=== PATIENT | female | born 1940 | race Caucasian/White ===

== ENCOUNTER 2016-09-04 19:20 | Emergency (ER) | payer MEDICARE, OTHER ==
[2016-09-04 19:54] VITALS: RESP 18
--- NOTE | 2016-09-04 21:55 | CT ---
EXAMINATION TYPE: CT facial bones wo con DATE OF EXAM: 09/04/2016 9:45 PM COMPARISON: NONE HISTORY: Fall today. Laceration and bruising to nasal area. CT DLP: 1767 mGycm Automated exposure control for dose reduction was used. TECHNIQUE: CT scan of the sinuses is performed without contrast, axial images are obtained, coronal r eformatted images are also reviewed. FINDINGS: The orbital margins are intact. There is no evidence of blowout fracture. There is normal a eration of the paranasal sinuses. There is bilateral patency of the ostiomeatal complex. There is waldemar e atrophy of the nasal turbinates. There is no evidence of orbital mass. The zygomatic arches appear normal. Maxilla is intact. Nasal bone appears intact. Visualized mandible appears intact. There is a small fluid level in the posterior sphenoid sinus. IMPRESSION: No fracture seen. Normal paranasal sinuses. There is a small fluid level in the posterior sphenoid sinus could relate to acute nasal injury.
--- NOTE | 2016-09-04 21:56 | CT ---
EXAMINATION TYPE: CT brain wo con DATE OF EXAM: 09/04/2016 9:42 PM COMPARISON: 04/28/2016 HISTORY: Fall today. Laceration and bruising to nasal area. CT DLP: 1767 mGycm Automated exposure control for dose reduction was used. FINDINGS: There is cerebral cortical atrophy. There is no mass effect nor midline shift. There is no sign of in tracranial hemorrhage. The calvarium is intact. IMPRESSION: Cerebral atrophy. No acute intracranial abnormality. No change.
--- NOTE | 2016-09-04 22:06 | ED ---
Fall HPI - General Chief Complaint: Fall Stated Complaint: Fall/ Face injury Time Seen by Provider: 09/04/16 20:50 Source: patient Mode of arrival: ambulatory - History of Present Illness Initial Comments: Patient is a 75-year-old female presenting to the with chief complaint of nasal pain after falling while trying to get to the bathroom. Patient reports that she fell and tripped and landed on her face. She denies any loss of consciousness. She is not on any blood thinners. Patient was sent here from urgent care for a CT of her facial bones. Patient denies pain with EOM's and denies headache, changes in vision, nausea, vomiting. - Related Data Home Medications Medication Instructions Recorded Confirmed traZODone HCL [Desyrel] 200 mg PO HS 07/20/14 09/04/16 FLUoxetine HCL [PROzac] 40 mg PO HS 12/14/14 09/04/16 Multivitamin/Iron/Folic Acid 1 tab PO DAILY 12/14/14 09/04/16 [Centrum Complete Multivit Tab] Cholecalciferol [Vitamin D3] 1,000 unit PO DAILY 12/23/14 09/04/16 Donepezil [Aricept] 10 mg PO HS 12/23/14 09/04/16 Esomeprazole Magnesium [NexIUM] 40 mg PO DAILY PRN 12/23/14 09/04/16 Memantine [Namenda] 5 mg PO DAILY 01/24/16 09/04/16 Primidone [Mysoline] 100 mg PO BID 01/24/16 09/04/16 Solifenacin Succinate [Vesicare] 10 mg PO DAILY 04/28/16 09/04/16 Acetaminophen-Codeine 300-30mg 2 tab PO Q6H PRN 09/04/16 09/04/16 [Tylenol #3] Alendronate Sodium [Fosamax] 70 mg PO WE 09/04/16 09/04/16 Calcium/Magnesium/Zinc/Vit D 1 tab PO DAILY 09/04/16 09/04/16 Docusate [Colace] 200 mg PO BID 09/04/16 09/04/16 Lactulose 10 gm PO BID PRN 09/04/16 09/04/16 Meloxicam [Mobic] 15 mg PO DAILY@1800 09/04/16 09/04/16 clonazePAM [KlonoPIN] 1 mg PO DAILY@0700,1500 09/04/16 09/04/16 clonazePAM [KlonoPIN] 3 mg PO HS@2300 09/04/16 09/04/16 Previous Rx's Medication Instructions Recorded Ibuprofen [Motrin] 600 mg PO Q6HR PRN #12 tab 09/04/16 Allergies Allergy/AdvReac Type Severity Reaction Status Date / Time lorazepam [From Ativan] Allergy Hallucinati Verified 09/04/16 21:04 ons pneumococcal vaccine Allergy Swelling Verified 09/04/16 21:04 Review of Systems ROS Statement: Those systems with pertinent positive or pertinent negative responses have been documented in the HPI. ROS Other: All systems not noted in ROS Statement are negative. Past Medical History Past Medical History: Cancer, GERD/Reflux, Hyperlipidemia, Memory Impairment, Osteoarthritis (OA), Skin Disorder Additional Past Medical History / Comment(s): Frequent falls, occasional palpatations, cervical ca with surgery, rosacea, benign tremors, bilateral cataracts, over active bladder, UTIs, hematuria, past R hip fx with surgery, past R wrist fx, recent pelvic fx, past back fx, back and hips and knees pain, DJD, varicosities. History of Any Multi-Drug Resistant Organisms: None Reported Past Surgical History: Adenoidectomy, Joint Replacement, Orthopedic Surgery, Tonsillectomy, Tubal Ligation Additional Past Surgical History / Comment(s): mateusz hip and right knee replacement , REVISION OF TOTAL LEFT HIP, R knee arthroscopy, part of cervix removed, EGD/colonoscopy. Past Anesthesia/Blood Transfusion Reactions: No Reported Reaction, Family History of Problems w/ Anesthesia Additional Past Anesthesia/Blood Transfusion Reaction / Comment(s): father had problem w/spinal & was paralyzed per pt. Past Psychological History: Anxiety, Bipolar, Depression Additional Psychological History / Comment(s): Pt states current medication regime for her mental health is working well. She lives alone in her home. She is a . She has a cane and walker for ambulation. She does not drive and finds it difficult to get to appts. She just established with [facility]. Smoking Status: Former smoker Past Alcohol Use History: Rare Additional Past Alcohol Use History / Comment(s): started smoking in her 50's only smoked x 1 month then quit, occ glass of wine at holidays or if someone visits Past Drug Use History: None Reported - Past Family History Father Family Medical History: Coronary Artery Disease (CAD), Myocardial Infarction ([place] ) Additional Family Medical History / Comment(s): cabg Mother Family Medical History: Dementia General Exam - General Exam Comments Initial Comments: is a pleasant 75-year-old female. Note acute distress. Limitations: no limitations General appearance: alert, in no apparent distress Head exam: Present: atraumatic, normocephalic, normal inspection Eye exam: Present: normal appearance, PERRL, EOMI. Absent: scleral icterus, conjunctival injection, periorbital swelling ENT exam: Present: normal exam, mucous membranes moist, other (nasal swelling. and bruising after fall. No evidence of septal hematoma. ) Neck exam: Present: normal inspection. Absent: tenderness, meningismus, lymphadenopathy Respiratory exam: Present: normal lung sounds bilaterally. Absent: respiratory distress, wheezes, rales, rhonchi, stridor Cardiovascular Exam: Present: regular rate, normal rhythm, normal heart sounds. Absent: systolic murmur, diastolic murmur, rubs, gallop, clicks GI/Abdominal exam: Present: soft, normal bowel sounds. Absent: distended, tenderness, guarding, rebound, rigid Extremities exam: Present: normal inspection, full ROM, normal capillary refill. Absent: tenderness, pedal edema, joint swelling, calf tenderness Back exam: Present: normal inspection Neurological exam: Present: alert, oriented X3, CN II-XII intact Psychiatric exam: Present: normal affect, normal mood Skin exam: Present: warm, dry, intact, normal color. Absent: rash Course Vital Signs 09/04/16 09/04/16 19:51 22:49 Temperature 97.6 F 97.5 F L Pulse Rate 70 57 L Respiratory 18 18 Rate Blood Pressure 120/72 170/66 O2 Sat by Pulse 98 98 Oximetry Medical Decision Making - Medical Decision Making Patient is a 75 year old female that fell when walking to the bathroom after she tripped. She reports she landed on her face. She is not on any blood thinners. CT brain and facial bones are negative for fracture. Patient will be given Rx for motrin and instructed to apply ice as much as possivle to nose. Patient nares are patent, and no signs of septal hematoma. Patient understands treatment plan and will comply. Patient does live in an assisted living home and will be monitored for the next 48 hours. Patient family understands treatment plan and penelope comply. Head injury instructions discussed. - Radiology Data Radiology results: report reviewed CT brain and facial bones are negative for any acute fracture, hematoma, or midline shift. Disposition Clinical Impression: Facial injury, Fall, Minor head injury without loss of consciousness Disposition: HOME SELF-CARE Condition: Fair Instructions: Fall Prevention for Older Adults (ED) Additional Instructions: Patient instructed to follow-up with primary care physician. Patient started apply ice and take anti-inflammatory medications as prescribed. Return to the [facility] if any alarming signs or symptoms occur. Prescriptions: Ibuprofen [Motrin] 600 mg PO Q6HR PRN #12 tab PRN Reason: Pain Referrals: Zane Burris DO [Primary Care Provider] - 1-2 days Time of Disposition: 22:12
[2016-09-04 22:51] VITALS: BP 170/66; PULSE 57; TEMP 97.5
== END 2016-09-04 22:51 | disposition home or self-care (01) ==
LOC: EC 19:20
DX: S09.90XA Unspecified injury of head, initial encounter (principal); S09.93XA Unspecified injury of face, initial encounter; W19.XXXA Unspecified fall, initial encounter; K21.9 Gastro-esophageal reflux disease without esophagitis; E78.5 Hyperlipidemia, unspecified; G25.2 Other specified forms of tremor; N32.81 Overactive bladder; Z87.891 Personal history of nicotine dependence; Z79.899 Other long term (current) drug therapy; Z85.41 Personal history of malignant neoplasm of cervix uteri; Z88.7 Allergy status to serum and vaccine; Z88.8 Allergy status to other drugs, medicaments and biological substances
CPT/HCPCS: 70450; 70486; 99283

== ENCOUNTER 2016-12-29 11:17 | Emergency (ER) | payer MEDICARE ==
[2016-12-29 11:29] VITALS: RESP 18
--- NOTE | 2016-12-29 11:39 | ED ---
Lower Extremity Injury HPI - General Stated Complaint: Foot Injury Time Seen by Provider: 12/29/16 11:20 Source: patient, RN notes reviewed Mode of arrival: ambulatory Limitations: no limitations - History of Present Illness Initial Comments: 76-year-old female presents emergency Department with chief complaint of right ankle injury. Patient states she caught her foot in between the closet door and wall. She states she twisted and states it swollen all. Patient states that she is able put some weight on it was states it hurts. Patient denies any previous fractures. Patient denies any foot pain or proximal lower leg pain. - Related Data Home Medications Medication Instructions Recorded Confirmed traZODone HCL [Desyrel] 200 mg PO HS 07/20/14 12/29/16 FLUoxetine HCL [PROzac] 40 mg PO HS 12/14/14 12/29/16 Multivitamin/Iron/Folic Acid 1 tab PO DAILY 12/14/14 12/29/16 [Centrum Complete Multivit Tab] Cholecalciferol [Vitamin D3] 1,000 unit PO DAILY 12/23/14 12/29/16 Donepezil [Aricept] 10 mg PO HS 12/23/14 12/29/16 Esomeprazole Magnesium [NexIUM] 40 mg PO DAILY PRN 12/23/14 12/29/16 Memantine [Namenda] 5 mg PO DAILY 01/24/16 12/29/16 Primidone [Mysoline] 100 mg PO BID 01/24/16 12/29/16 Solifenacin Succinate [Vesicare] 10 mg PO DAILY 04/28/16 12/29/16 Acetaminophen-Codeine 300-30mg 2 tab PO Q6H PRN 09/04/16 12/29/16 [Tylenol #3] Alendronate Sodium [Fosamax] 70 mg PO WE 09/04/16 12/29/16 Calcium/Magnesium/Zinc/Vit D 1 tab PO DAILY 09/04/16 12/29/16 Docusate [Colace] 200 mg PO BID 09/04/16 12/29/16 Lactulose 10 gm PO BID PRN 09/04/16 12/29/16 clonazePAM [KlonoPIN] 1 mg PO BID@0700,1500 09/04/16 12/29/16 clonazePAM [KlonoPIN] 3 mg PO HS@2300 09/04/16 12/29/16 Cyanocobalamin (Vitamin B-12) 1,000 mcg PO DAILY 12/29/16 12/29/16 [Vitamin B-12] Diclofenac Sodium Gel [Voltaren 4 gm TOPICAL QID 12/29/16 12/29/16 Gel] Previous Rx's Medication Instructions Recorded Ibuprofen [Motrin] 600 mg PO Q6HR PRN #12 tab 09/04/16 Allergies Allergy/AdvReac Type Severity Reaction Status Date / Time lorazepam [From Ativan] Allergy Hallucinati Verified 12/29/16 11:29 ons pneumococcal vaccine Allergy Swelling Verified 12/29/16 11:29 Review of Systems ROS Statement: Those systems with pertinent positive or pertinent negative responses have been documented in the HPI. ROS Other: All systems not noted in ROS Statement are negative. Past Medical History Past Medical History: Cancer, GERD/Reflux, Hyperlipidemia, Memory Impairment, Osteoarthritis (OA), Skin Disorder Additional Past Medical History / Comment(s): Frequent falls, occasional palpatations, cervical ca with surgery, rosacea, benign tremors, bilateral cataracts, over active bladder, UTIs, hematuria, past R hip fx with surgery, past R wrist fx, pelvic fx, past back fx, back and hips and knees pain, DJD, varicosities. History of Any Multi-Drug Resistant Organisms: None Reported Past Surgical History: Adenoidectomy, Joint Replacement, Orthopedic Surgery, Tonsillectomy, Tubal Ligation Additional Past Surgical History / Comment(s): mateusz hip and right knee replacement , REVISION OF TOTAL LEFT HIP, R knee arthroscopy, part of cervix removed, EGD/colonoscopy. Past Anesthesia/Blood Transfusion Reactions: No Reported Reaction, Family History of Problems w/ Anesthesia Additional Past Anesthesia/Blood Transfusion Reaction / Comment(s): father had problem w/spinal & was paralyzed per pt. Past Psychological History: Anxiety, Bipolar, Depression Additional Psychological History / Comment(s): Pt states current medication regime for her mental health is working well. She lives alone in her home. She is a . She has a cane and walker for ambulation. She does not drive and finds it difficult to get to appts. She just established with [facility]. Smoking Status: Former smoker Past Alcohol Use History: Rare Additional Past Alcohol Use History / Comment(s): started smoking in her 50's only smoked x 1 month then quit, occ glass of wine at holidays or if someone visits Past Drug Use History: None Reported - Past Family History Father Family Medical History: Coronary Artery Disease (CAD), Myocardial Infarction ([place] ) Additional Family Medical History / Comment(s): cabg Mother Family Medical History: Dementia General Exam Limitations: no limitations General appearance: alert, in no apparent distress Head exam: Present: atraumatic, normocephalic, normal inspection Respiratory exam: Present: normal lung sounds bilaterally. Absent: respiratory distress, wheezes, rales, rhonchi, stridor Cardiovascular Exam: Present: regular rate, normal rhythm, normal heart sounds. Absent: systolic murmur, diastolic murmur, rubs, gallop, clicks Extremities exam: Present: other (Right lower extremity there is some swelling noted over the malleolus medial and lateral there is tenderness of the lateral malleolus foot is neurovascular intact with equal pupils pulses Refill less than 2 seconds there is no foot tenderness there is no obvious deformity.) Skin exam: Present: warm, dry Course Vital Signs 12/29/16 12/29/16 11:23 11:33 Temperature 97.2 F L Pulse Rate 61 57 L Respiratory 18 18 Rate Blood Pressure 145/65 O2 Sat by Pulse 99 99 Oximetry Procedures - Orthopedic Splinting/Casting Injury #1 Side: right Lower Extremity Injury Location: ankle Lower Extremity Immobilizer: posterior splint (Short leg neurovascular intact before and after procedure) Medical Decision Making - Medical Decision Making 76-year-old female presented for right ankle pain. Patient has transverse fracture lateral malleolus. Patient was splinted and will follow-up with her orthopedic doctor Dr. De Leon. Return parameters were discussed. Disposition Clinical Impression: Closed right ankle fracture Disposition: HOME SELF-CARE Condition: Stable Instructions: Ankle Fracture (ED) Additional Instructions: Please return to the Emergency Department if symptoms worsen or any other concerns. Referrals: Zane Burris DO [Primary Care Provider] - 1-2 days Melchor Hayward MD [STAFF PHYSICIAN] - 1-2 days Time of Disposition: 12:07
--- NOTE | 2016-12-29 11:59 | XR ---
EXAMINATION TYPE: XR ankle complete RT DATE OF EXAM: 12/29/2016 11:35 AM COMPARISON: NONE HISTORY: 76-year-old female with pain after getting foot caught in closet TECHNIQUE: 3 views FINDINGS: There is a mildly displaced transverse fracture across the lateral malleolus at the level of the ankl e joint line. A 4 mm ossific density below the medial malleolus represents an age indeterminate avuls ion fracture. No fracture seen along the posterior malleolus. Subtalar joint is aligned. IMPRESSION: Mildly displaced transverse fracture of the lateral malleolus. A 4 mm bone fragment below the medial malleolus could represent an additional avulsion fracture mediated by the deltoid ligament. However, this is age indeterminate. Correlate for any focal pain here. Soft tissue swelling, especially latera lly.
[2016-12-29 13:15] VITALS: BP 130/82; PULSE 68; TEMP 97.4
== END 2016-12-29 13:15 | disposition home or self-care (01) ==
LOC: EC 11:17
DX: S82.61XA Displaced fracture of lateral malleolus of right fibula, initial encounter for closed fracture (principal); E78.5 Hyperlipidemia, unspecified; K21.9 Gastro-esophageal reflux disease without esophagitis; F41.9 Anxiety disorder, unspecified; F31.9 Bipolar disorder, unspecified; Z88.7 Allergy status to serum and vaccine; Z88.8 Allergy status to other drugs, medicaments and biological substances; Z79.899 Other long term (current) drug therapy; Z87.891 Personal history of nicotine dependence; X50.1XXA Overexertion from prolonged static or awkward postures, initial encounter
CPT/HCPCS: 29515; 99283

== ENCOUNTER → 2017-01-10 | Outpatient (CLI) | payer MEDICARE ==
[2017-01-10 14:01] LABS: Basophils % (A) 0 %; CH 32.8; CHCM 32.9; Eosinophils % (A) 1 %; HCT 40.4 % (34.0-46.0); HDW 2.34; Luc # (Auto) 0.11; Luc % (Auto) 2; Lymphocytes % (A) 21 %; MCH 32.1 pg (25.0-35.0); MCHC 32.1 g/dL (31.0-37.0); Mean Platelet Volume 7.2; Monocytes # (A) 0.2 k/uL (0-1.0); Monocytes % (A) 4 %; Neutrophils # (A) 3.5 k/uL (1.3-7.7); Neutrophils % (A) 72 %; RBC 4.04 m/uL (3.80-5.40); RDW 13.3 % (11.5-15.5); WBC 4.8 k/uL (3.8-10.6); WBC (Perox) 4.86
[2017-01-10 14:04] LABS: INR 1.1 (<1.1); Partial Thromboplastin Time 25.8 sec (22.0-30.0); Prothrombin Time 11.3 sec (9.0-12.0)
[2017-01-10 14:19] LABS: Potassium 4.2 mmol/L (3.5-5.1)
== END | disposition home or self-care (01) ==
LOC: LABPAT 12:58
PROVIDERS: ATTEND Orthopaedic Surgery
DX: Z01.812 Encounter for preprocedural laboratory examination (principal); Z79.01 Long term (current) use of anticoagulants
CPT/HCPCS: 36415; 80051; 85025; 85610; 85730

== ENCOUNTER 2017-01-11 11:33 | Day surgery (SDC) | payer MEDICARE, OTHER ==
[2017-01-09 16:01] VITALS: BMI 22.6
--- NOTE | 2017-01-10 08:24 | HP ---
DATE OF ADMISSION: CHIEF COMPLAINT: Right ankle pain. HISTORY OF PRESENT ILLNESS: The patient is a 76-year-old retired female who presents with right ankle pain after an injury on 12/29/2016. She was sitting on her closet floor when her foot got stuck in the door frame and she twisted her ankle. She has had pain and swelling since. She has been full weight-bearing. Initially, she was seen in the emergency and placed into a splint. She denies previous injury. PAST MEDICAL HISTORY: Significant for arthritis, hypothyroidism and dementia. PAST SURGICAL HISTORY: Significant for bilateral total knee arthroplasty, bilateral total hip arthroplasty. CURRENT MEDICATIONS: 1. Aricept. 2. Lipitor. 3. Nexium. 4. Prozac. 5. Klonopin. 6. Trazodone. She notes sensitivity to ATIVAN; however, no allen drug allergies. FAMILY HISTORY: Significant for heart disease. SOCIAL HISTORY: Significant for previous tobacco use; however, she quit in 2004. Sixteen-point review of systems otherwise reviewed and is noncontributory. On examination, the patient is approximately 5 feet 6 inches, 140 pounds of mesomorphic habitus. HEENT exam is nonfocal. Neck is supple. She is nontender about the cervical, thoracic, and lumbar spine. She has painless passive motion of the right hip. Straight leg raise is negative. She is nontender about the right knee and proximal fibula. On examination of the right ankle, she has moderate lateral swelling. Skin is intact. She is tender over the distal fibula. She is mildly tender about the deltoid. No mid or forefoot tenderness is noted. Her distal neurovascular exam appears to be intact in the right lower extremity. Three views of the right ankle obtained in the office show a lateral malleolar fracture with 3 to 4 mm lateral displacement. There appears to be a small medial malleolar avulsion fracture as well. IMPRESSION: 1. Right lateral malleolar ankle fracture. 2. Mild dementia. RECOMMENDATIONS: I talked to the patient and her family regarding her treatment options. At this point with the degree of displacement, I would recommend proceeding with surgery. We will plan to proceed with open reduction and internal fixation. We will likely perform that and keep the patient for a 23-hour hold postoperatively. Risks and benefits were discussed at length in layman's terms.
[~2017-01-11 11:33] MED LIST: DEXAMETHASONE SOD PHOSPHATE 10 MG/ML 1 ML VIAL IV ONE; HYDROmorphone 1 MG/ML 1 ML SYRINGE IVP PRN; LIDOCAINE 1% 20 ML VIAL (10MG/ML) FOR IV START INTRADERMA PRN; ONDANSETRON 4 MG/2 ML VIAL IVP ONE; ceFAZolin 1,000 MG in DEXTROSE/WATER 1 50ML.BAG IV ONE
[2017-01-11] MEDS: LACTATED RINGERS 1,000 ML IV SCH ×2 (12:57→19:18)
[2017-01-11] MEDS ORDERED: LIDOCAINE 1% 20 ML VIAL (10MG/ML) FOR IV START INTRADERMA ONE (12:57)
[2017-01-11] MEDS ORDERED: LIDOCAINE 1% INJ 10MG/ML (20 ML MDV) ONE (13:37)
[2017-01-11] MEDS ORDERED: PROPOFOL 10 MG/ML 20 ML VIAL IV ONE (13:37)
[2017-01-11] MEDS ORDERED: ceFAZolin 1,000 MG in SODIUM CHLORIDE 0.9% 1,000 ML IRRIGATION ONE (14:05)
[2017-01-11] MEDS ORDERED: ONDANSETRON 4 MG/2 ML VIAL IVP PRN (14:45)
[2017-01-11] MEDS ORDERED: HYDROmorphone 1 MG/ML 1 ML SYRINGE IVP PRN (14:45)
[2017-01-11] MEDS ORDERED: HYDROcodone/APAP 5-325MG 1 EACH TAB PO PRN (14:45)
--- NOTE | 2017-01-11 14:45 | P.OP ---
Date of Procedure: 01/11/17 Preoperative Diagnosis: Displaced right lateral malleolar ankle fracture Postoperative Diagnosis: Same Procedure(s) Performed: Open reduction and internal fixation right lateral malleolar ankle fracture Implants: Randy 6 hole one third tubular plate Anesthesia: spinal Surgeon: Melchor Hayward Psych Coordinator #1: Girish [place] Estimated Blood Loss (ml): 5 Pathology: none sent Condition: stable Disposition: PACU Indications for Procedure: The patient's a 76-year-old female presents after injuring her right ankle recently. She was noted to have a displaced lateral lateral fracture. A discussion of the risks and benefits of operative intervention versus conservative measures was made with patient and her family. With the degree of initial displacement, I recommended proceeding with open reduction and internal fixation. Specific risks of surgery to include infection, neurovascular injury , hardware failure, possible development of blood clots, possible need for subsequent procedures was discussed. Informed consent was obtained. Operative Findings: As below Description of Procedure: The patient was brought to the operating room, and after induction of spinal anesthesia the right lower extremity was prepped and draped in normal fashion. The tourniquet was inflated to 270 mmHg. A 7 cm incision was made along the distal subcutaneous border of the fibula. The skin was incised sharply. Subcutaneous tissues were divided bluntly. Electrocautery was used for hemostasis. The periosteum overlying the distal fibula was elevated to expose the fracture site. The fracture site was cleaned of clot and debris. It was then provisionally reduced with a reduction clamp. A 6-hole one third tubular plate was then fashioned to fit the lateral aspect of the distal fibula. This was attached proximally with 3.5 mm cortical screws the appropriate length and distally with 4.0 mm cancellus screws of the appropriate length. This was done with the aid of fluoroscopy. I was able to restore fibular length and the mortise. Final fluoroscopic views to include AP, mortise, and lateral views showed adequate reduction of fracture and the ankle mortise. The wound was irrigated with normal saline. The subcutaneous tissues were reapproximated interrupted 2-0 Vicryl sutures. The skin was reapproximated with 3-0 subcuticular strata fix suture. Steri-Strips were applied. A sterile dressing was applied in addition to a bulky splint. The tourniquet was deflated with less than 45 minutes total tourniquet time. The patient was awoken from sedation and transferred to recovery room in good condition. Blood loss was estimated 5 mL. No complications were incurred. Sponge and needle counts were correct in the case.
--- NOTE | 2017-01-11 14:51 | FL ---
FLUOROSCOPY 15 seconds of fluoroscopy time were utilized during internal fixation of the right ankle. 2 images do cument the procedure.
[2017-01-11] MEDS: ceFAZolin 2 GM in SODIUM CHLORIDE 0.9% 100 ML IVPB SCH ×2 (16:11→23:50)
[2017-01-11] MEDS ORDERED: DICLOFENAC SODIUM GEL 100 GM TUBE TOPICAL PRN (16:34)
[2017-01-11] MEDS: HYDROmorphone 1 MG/ML 1 ML SYRINGE IVP PRN ×2 (17:00→21:56)
[2017-01-11] MEDS: HYDROcodone/APAP 5-325MG 1 EACH TAB PO PRN (19:17)
[2017-01-11] MEDS ORDERED: FLUoxetine HCL 20 MG CAP PO SCH (21:00)
[2017-01-11] MEDS ORDERED: DONEPEZIL 10 MG TAB PO SCH (21:00)
[2017-01-11] MEDS: PRIMIDONE 50 MG TAB PO SCH ×2 (21:43→22:35)
[2017-01-11 22:00] VITALS: RESP 16
[2017-01-11] MEDS ORDERED: clonazePAM 1 MG TAB PO SCH (23:00)
[2017-01-12] MEDS: LACTATED RINGERS 1,000 ML IV SCH (02:12)
[2017-01-12] MEDS: HYDROcodone/APAP 5-325MG 1 EACH TAB PO PRN ×3 (03:44→15:39)
[2017-01-12] MEDS: clonazePAM 1 MG TAB PO SCH ×2 (07:23→15:09)
[2017-01-12] MEDS: PRIMIDONE 50 MG TAB PO SCH (08:29)
[2017-01-12] MEDS ORDERED: CHOLECALCIFEROL 1,000 UNIT TAB PO SCH (09:00)
[2017-01-12] MEDS ORDERED: LACTULOSE 20 GM/30 ML CUP PO SCH (09:00)
[2017-01-12] MEDS ORDERED: MEMANTINE 5 MG TAB PO SCH (09:00)
[2017-01-12] MEDS ORDERED: ASPIRIN 325 MG TAB PO SCH (09:00)
[2017-01-12] MEDS ORDERED: OXYBUTYNIN 10 MG TAB.ER.24 PO SCH (09:00)
--- NOTE | 2017-01-12 10:14 | P.PN ---
Subjective Principal diagnosis: Status post ORIF right lateral malleolus fracture Patient is seen today resting in her hospital chair, she appears comfortable. She did note some increasing pain to the night, this is well-controlled. She is remaining nonweightbearing. She denies any headaches, lightheadedness, chest pain, shortness of breath. Objective - Vital Signs Vital signs: Vital Signs Temp 98.7 F 01/12/17 07:00 Pulse 67 01/12/17 07:00 Resp 16 01/12/17 07:00 BP 124/84 01/12/17 07:00 Pulse Ox 100 01/12/17 07:00 Intake & Output 01/11/17 01/12/17 01/12/17 18:59 06:59 18:59 Intake Total 1950 360 Output Total 10 Balance 1940 360 Weight 63.503 kg Intake: IV 1950 Oral 360 Output: Estimated Blood Loss 10 Other: Voiding Method Bedside Commode Bedside Commode # Voids 1 - Exam Right lower extremity: Cast is in good position, it remains clean and intact. She is able to wiggle toes no difficulty. Her sensory exam both proximal and distal to the cast intact. Assessment and Plan Plan: Assessment: 1. Postop day #1 status post ORIF right lateral malleolus fracture Plan: 1. Pain control, continue supportive oral medication 2. Continue nonweightbearing status of right leg, utilize walker or crutches 3. GI and DVT prophylaxis, will utilize aspirin 320 mg daily after discharge 4. Medical recommendations 5. Discharge planning: Discussing with case management possibility for patient to be discharged back to her assisted care living facility versus a rehab facility Time with Patient: Less than 30
[2017-01-12 10:16] LABS: Basophils % (A) 0 %; CH 32.8; CHCM 32.9; Eosinophils # (A) 0.1 k/uL (0-0.7); Eosinophils % (A) 1 %; HCT 35.2 % (34.0-46.0); HDW 2.33; HGB 11.4 gm/dL (11.4-16.0); Luc # (Auto) 0.12; Luc % (Auto) 2; Lymphocytes # (A) 1.7 k/uL (1.0-4.8); Lymphocytes % (A) 30 %; MCH 32.5 pg (25.0-35.0); MCHC 32.5 g/dL (31.0-37.0); MCV 100.2 fL (80.0-100.0); Mean Platelet Volume 7.4; Monocytes # (A) 0.4 k/uL (0-1.0); Monocytes % (A) 6 %; Neutrophils # (A) 3.3 k/uL (1.3-7.7); Neutrophils % (A) 60 %; RBC 3.51 m/uL (3.80-5.40); RDW 13.2 % (11.5-15.5); WBC 5.5 k/uL (3.8-10.6)
--- NOTE | 2017-01-12 10:18 | P.DS ---
Providers Date of admission: 01/11/2017 Expected date of discharge: 01/12/17 Attending physician: Melchor Hayward Consults: 01/11/17 16:25 Consult Physician Stat Consulting Provider: Ezio Wynne Reason/Comments: medical management Do you want consulting provider notified?: Yes Primary care physician: Stated None Hospital Course: Date of admission: 01/11/2017 Date of discharge: 01/12/2017 Admission diagnosis: Status post ORIF right lateral malleolus fracture Discharge diagnosis: Same Attending physician: Dr. Hayward Surgical procedures: ORIF right lateral malleolus fracture Brief history: Patient is a 76-year-old female with a history of displaced right lateral malleolus fracture. Patient was seen in the outpatient setting by Dr. Hayward, it was determined surgical fixation would be needed for proper treatment. She was scheduled for an ORIF procedure of the right lateral malleolus fracture on 01/11/2017. Hospital course: Details of patient's surgery can be found in operative report. Patient tolerated the procedure well and was subsequently transported to orthopedic floor. Patient's orthopeidc and medical care was provided daily. Patient had daily physical therapy to include strengthening range of motion as well as education with walker ambulation. Patient was treated with aspirin for their postoperative DVT prophylaxis during their inpatient stay. Patient was noted to have a relatively uneventful postoperative course. Patient reported satisfactory pain control with oral pain medications by postoperative day 0. Patient showed satisfactory progress with physical therapy. Patient moved steadily through the program and had no difficulty meeting the goals by postoperative day 1. Given patient's otherwise satisfactory course and having met physical therapy goals, plan is to discharge patient assisted living home on postoperative day 1. Discharge condition/disposition: Patient will be discharged to the assisted living home in stable condition. Discharge medications: Instructions are given on resumption of patient's normal daily medications per primary care recommendation, in addition patient will be prescribed [place] 5mg/325mg, Aspirin 325mg. Discharge instructions: 1. Keep cast clean and dry, keep covered while showering 2. Nonweightbearing, utilize crutches or walker 3. Ice and elevate when necessary. Do not exceed 20 minutes per hour with ice pack. 4. Pain meds and anticoagulants per prescription. 5. Pain medication has potential to cause constipation. Increase oral fluid and fiber intake. Contact primary care provider if you have not had a bowel movement within 48 hours after discharge 6. Follow up in office at 2 weeks postop with Rich Colorado PA-C 7. Follow up with your primary care doctor 7-10 days after discharge. 8. Contact [facility] with any questions, . Procedures: Open reduction internal fixation right lateral malleolus fracture Patient Condition at Discharge: Good Plan - Discharge Summary New Discharge Prescriptions: New Aspirin 325 mg PO DAILY #30 tab Hydrocodone/Acetaminophen [[place] 5-325] 1 - 2 each PO Q6HR PRN #60 tab PRN Reason: Pain No Action FLUoxetine HCL [PROzac] 40 mg PO HS Multivitamin/Iron/Folic Acid [Centrum Complete Multivit Tab] 1 tab PO DAILY Cholecalciferol [Vitamin D3] 1,000 unit PO DAILY Donepezil [Aricept] 10 mg PO HS Primidone [Mysoline] 100 mg PO BID Memantine [Namenda] 5 mg PO DAILY Solifenacin Succinate [Vesicare] 10 mg PO DAILY Acetaminophen-Codeine 300-30mg [Tylenol #3] 1 tab PO Q6H PRN PRN Reason: Moderate To Severe Pain Alendronate Sodium [Fosamax] 70 mg PO WE clonazePAM [KlonoPIN] 3 mg PO HS@2300 clonazePAM [KlonoPIN] 1 mg PO BID@0700,1500 Lactulose 10 gm PO DAILY Ibuprofen [Motrin] 600 mg PO Q6HR PRN #12 tab PRN Reason: Pain Cyanocobalamin (Vitamin B-12) [Vitamin B-12] 1,000 mcg PO DAILY Diclofenac Sodium Gel [Voltaren Gel] 4 gm TOPICAL QID PRN PRN Reason: Pain Acetaminophen Tab [Tylenol Tab] 325 mg PO Q4H PRN PRN Reason: Pain Discharge Medication List FLUoxetine HCL [PROzac] 40 mg PO HS 12/14/14 [History] Multivitamin/Iron/Folic Acid [Centrum Complete Multivit Tab] 1 tab PO DAILY 11/25 [History] Cholecalciferol [Vitamin D3] 1,000 unit PO DAILY 12/23/14 [History] Donepezil [Aricept] 10 mg PO HS 12/23/14 [History] Memantine [Namenda] 5 mg PO DAILY 01/24/16 [History] Primidone [Mysoline] 100 mg PO BID 01/24/16 [History] Solifenacin Succinate [Vesicare] 10 mg PO DAILY 04/28/16 [History] Acetaminophen-Codeine 300-30mg [Tylenol #3] 1 tab PO Q6H PRN 09/04/16 [History] Alendronate Sodium [Fosamax] 70 mg PO WE 09/04/16 [History] Ibuprofen [Motrin] 600 mg PO Q6HR PRN #12 tab 09/04/16 [Rx] Lactulose 10 gm PO DAILY 09/04/16 [History] clonazePAM [KlonoPIN] 1 mg PO BID@0700,1500 09/04/16 [History] clonazePAM [KlonoPIN] 3 mg PO HS@2300 09/04/16 [History] Cyanocobalamin (Vitamin B-12) [Vitamin B-12] 1,000 mcg PO DAILY 12/29/16 [ History] Diclofenac Sodium Gel [Voltaren Gel] 4 gm TOPICAL QID PRN 12/29/16 [History] Acetaminophen Tab [Tylenol Tab] 325 mg PO Q4H PRN 01/11/17 [History] Aspirin 325 mg PO DAILY #30 tab 01/12/17 [Rx] Hydrocodone/Acetaminophen [[place] 5-325] 1 - 2 each PO Q6HR PRN #60 tab 01/12/17 [Rx] Follow up Appointment(s)/Referral(s): Girish Colorado PAC [PHYSICIAN SOUND TECHNICIAN SUPERVISOR] - 2 Weeks Activity/Diet/Wound Care/Special Instructions: Orthopedic discharge instructions: 1. Nonweightbearing right lower leg, utilize crutches or walker 2. Keep cast clean and dry, keep covered while showering 3. Ice and elevate the right leg often 4. Aspirin 325 mg once a day for DVT prophylaxis 5. Follow-up at [facility] in 2 weeks Discharge Disposition: TRANSFER TO SNF/ECF
[2017-01-12 10:37] LABS: Anion Gap 8 mmol/L; Blood Urea Nitrogen 23 mg/dL (7-17); Calcium 8.7 mg/dL (8.4-10.2); Carbon Dioxide 26 mmol/L (22-30); Chloride 106 mmol/L (98-107); Glucose 101 mg/dL (74-99); Non-African American GFR(MDRD) >60 (>60 ml/min/1.73 sqM); Potassium 3.6 mmol/L (3.5-5.1); Sodium 140 mmol/L (137-145)
[2017-01-12] MEDS ORDERED: MULTIVITAMINS, THERA 1 EACH TAB PO SCH (12:00)
[2017-01-12] MEDS ORDERED: CYANOCOBALAMIN 500 MCG TAB PO SCH (12:00)
--- NOTE | 2017-01-12 12:17 | CONS ---
DATE OF CONSULTATION: 01/12/2017 REASON FOR CONSULTATION: Medical management requested by Dr. Hayward. CONSULTATION: This is a pleasant 76-year-old patient who suffered a fracture to her right ankle. Patient underwent plating of the same. Some pain is present, but controlled. Right leg in a casting. Patient's chronic stable medical conditions include GERD, hyperlipidemia, urinary incontinence, psoriasis of the scalp, bipolar which is controlled. No chest pain, short of breath. Did tolerate some breakfast. REVIEW OF SYSTEMS: CONSTITUTIONAL: None. HEENT: None. RESPIRATORY: None. CARDIOVASCULAR: None. GASTROINTESTINAL: As above. GENITOURINARY: As above. MUSCULOSKELETAL: As above. DERMATOLOGICAL: As above. LYMPHATICS: None. PSYCHIATRY: None. NEUROLOGICAL: None. Past history of GERD, hyperlipidemia, urinary incontinence, psoriasis, bipolar. PAST SURGICAL HISTORY: Adenoidectomy, joint replacement, tonsillectomy, tubal ligation, bilateral hip and right knee replacement, revision of left total hip, right knee arthroscopy, ( ) cervix removed, EGD, colonoscopy. PAST PSYCH HISTORY: Bipolar. SOCIAL HISTORY: Patient lives by herself. Really does not drink or smoke. FAMILY HISTORY: Coronary artery disease and hypertension. HOME MEDICATIONS: 1. Fosamax 70 mg on Sunday. 2. Lactulose 10 grams p.o. daily. 3. VESIcare 10 mg p.o. daily. 4. Klonopin 3 mg in the evening 1 mg p.o. b.i.d. 5. Vitamin B12, 1000 mcg p.o. daily. 6. Vitamin D3, 1000 units p.o. daily. 7. Mysoline 100 mg b.i.d. 8. Multivitamin 1 tablet p.o. daily. 9. Namenda 5 mg p.o. daily. 10. Motrin 600 mg q.6 p.r.n. 11. Prozac 40 mg q.h.s. 12. Aricept 10 mg p.o. q.h.s. 13. Aspirin 325 p.o. daily. Allergies to ATIVAN and PNEUMOCOCCAL VACCINE. On examination, temperature 98/7, pulse 67, respiration 16, blood pressure 124/84, pulse ox 100% on room air. GENERAL APPEARANCE: Average built, sitting up in a chair, comfortable. EYES: Pupils equal. Conjunctivae normal. HEENT: External appearance of nose and ears normal. Oral cavity normal. NECK: JVD not raised. Mass not palpable. RESPIRATORY: Effort normal. Lungs are clear. CARDIOVASCULAR: First and second sounds normal. No edema. ABDOMEN: Soft, nontender. Liver and spleen not palpable. LYMPHATIC: No lymph node palpable in neck or axillae. PSYCHIATRY: Alert and oriented x3. Mood and affect normal. NEUROLOGICAL: Pupils equal. Cranial nerves grossly intact. Power and sensation grossly intact. EXTREMITIES: Right foot in a cast. INVESTIGATIONS: White count 5.5, hemoglobin 11.4. Potassium 3.6. ASSESSMENT: 1. Displaced right lateral malleolar ankle fracture followed by open reduction internal fixation of the same with plate placement. 2. Chronic gastroesophageal reflux disease. 3. Chronic hyperlipidemia. 4. Chronic urinary stress incontinence. 5. Psoriasis of the scalp. 6. Bipolar disorder in remission. PLAN: Home medications are reviewed. Pain control is in place. The patient actually will be getting discharged today. Patient should follow with the family doctor upon discharge. Care was discussed with the patient. Thank you, Dr. Hayward.
[2017-01-12 13:46] VITALS: BP 137/73; PULSE 62; TEMP 98
[2017-01-17] MEDS ORDERED: NON-FORMULARY DRUG (Alendronate Sodium [Fosamax] 70 MG) PO SCH (16:34)
== END 2017-01-12 16:14 ==
LOC: OR 11:33 → 3SUR 14:41 → OR 01-12 16:14
PROVIDERS: ATTEND Orthopaedic Surgery
DX: S82.61XA Displaced fracture of lateral malleolus of right fibula, initial encounter for closed fracture (principal); W23.0XXA Caught, crushed, jammed, or pinched between moving objects, initial encounter; Y92.008 Other place in unspecified non-institutional (private) residence as the place of occurrence of the external cause; F03.90 Unspecified dementia, unspecified severity, without behavioral disturbance, psychotic disturbance, mood disturbance, and anxiety; K21.9 Gastro-esophageal reflux disease without esophagitis; E78.5 Hyperlipidemia, unspecified; N39.3 Stress incontinence (female) (male); L40.9 Psoriasis, unspecified; F31.9 Bipolar disorder, unspecified; M19.90 Unspecified osteoarthritis, unspecified site; E03.9 Hypothyroidism, unspecified; F41.9 Anxiety disorder, unspecified; R25.1 Tremor, unspecified; Z96.653 Presence of artificial knee joint, bilateral; Z79.1 Long term (current) use of non-steroidal anti-inflammatories (NSAID); Z79.82 Long term (current) use of aspirin; Z79.891 Long term (current) use of opiate analgesic; Z79.899 Other long term (current) drug therapy; Z88.7 Allergy status to serum and vaccine; Z87.891 Personal history of nicotine dependence
CPT/HCPCS: 97530; 97161; 80048; 85025; 73600; 27792; C1713; J1100; J0690 ×3; J2405; J2001; J1170; J2704

== ENCOUNTER → 2018-02-01 | Outpatient (CLI) | payer MEDICARE ==
--- NOTE | 2018-02-01 15:53 | XR ---
EXAMINATION TYPE: XR wrist complete RT DATE OF EXAM: 02/01/2018 CLINICAL HISTORY: Pain from fall injury. History of fracture. TECHNIQUE: Frontal, lateral , scaphoid, and oblique images of the right wrist are obtained. COMPARISON: Prior right wrist x-ray February 21, 2015 FINDINGS: Osseous structures remain demineralized which is noted to lower radiographic sensitivity. There is no acute fracture/dislocation evident in the right wrist. Radiocarpal joint space loss is re demonstrated. There is prominent joint space loss at base of first metacarpal with marginal osteophyt es redemonstrated. The overlying soft tissue appears unremarkable. IMPRESSION: There is no acute fracture or dislocation in the right wrist.
== END | disposition home or self-care (01) ==
LOC: RADXRMAIN 15:21
PROVIDERS: ATTEND Family Medicine
DX: M25.531 Pain in right wrist (principal)

== ENCOUNTER → 2019-01-31 | Outpatient (CLI) | payer MEDICARE ==
--- NOTE | 2019-01-31 14:01 | NM ---
EXAMINATION TYPE: NM bone 3 phase DATE OF EXAM: 01/31/2019 COMPARISON: NONE HISTORY: Right knee pain Triple phase bone scintigraphy was performed following the injection of 24 mCi Tc 99m MDP. Immediate images and 4.5 hours post injection images acquired. FINDINGS: There is increased pharmaceutical uptake noted along the proximal tibia on the right at the level of the patient's tibial component of the right knee arthroplasty. Photopenic region is identified. This correlates with the patient's knee arthroplasty. Some mild uptake also noted along the femoral compon ent of the right knee arthroplasty. Uptake along the patella is bilaterally is relatively symmetric. No increased blood flow is noted. Blood pool activity is mild about the femoral component of the alie ent's right knee arthroplasty. Mild uptake in the wrists, hands, shoulders, sternoclavicular joints, feet is likely degenerative. Uptake in the spine be due to degenerative changes or possibly prior com pression fractures, uptake in the greater trochanter on the left is indeterminate but may be related to prior surgery or bursitis at the trochanter. Photopenic defects noted in the bilateral hips consis tent with hip arthroplasties. Soft tissue uptake is normal. Uptake in the calvarium likely benign, po ssibly due to hyperostosis frontalis interna. IMPRESSION: Difficult to exclude anesthetic loosening. No increased blood flow activity to suggest infection. Add itional findings above.
== END | disposition home or self-care (01) ==
LOC: RADNMMAIN 07:24
PROVIDERS: ATTEND Orthopaedic Surgery
DX: T84.84XD Pain due to internal orthopedic prosthetic devices, implants and grafts, subsequent encounter (principal); Z96.651 Presence of right artificial knee joint; Z88.8 Allergy status to other drugs, medicaments and biological substances
CPT/HCPCS: 78315; A9503

== ENCOUNTER 2019-03-02 07:54 | Inpatient (IN) | payer MEDICARE ==
[2019-03-02] MEDS ORDERED: MORPHINE SULFATE 4 MG/ML SYRINGE IM STA (09:09)
--- NOTE | 2019-03-02 09:57 | ED ---
General Adult HPI - General Chief complaint: Fall Stated complaint: KNEE PAIN Time Seen by Provider: 03/02/19 08:14 Source: patient, RN notes reviewed, old records reviewed Mode of arrival: ambulatory Limitations: no limitations - History of Present Illness Initial comments: 78-year-old female patient with pertinent medical history of total hip replacement 3 times total presents to ED after a fall. Patient was that she was walking in her hallway, loss of balance falling onto her right hip. Patient had this hip replaced approximately [address] De Leon. Patient reports she has pain in her right hip and her right femur area. Pt denies loss o f bowel or bladder control, saddle anesthesia, paresthesias, back pain. Patient denies any other complaints at this time. Patient denies any trauma to head or neck. Denies any other complaints. Systemic: Pt denies fatigue, fever/chills, rash. Pt denies weakness, night sweats, weight loss. Neuro: Pt denies headache, visual disturbances, syncope or pre-syncope. HEENT: Pt denies ocular discharge or irritation, otalgia, rhinorrhea, pharyngitis or notable lymphadenopathy. Cardiopulmonary: Pt denies chest pain, SOB, heart palpitations, dyspnea on exertion. Abdominal/GI: Pt denies abdominal pain, n/v/d. : Pt denies dysuria, burning w/ urination, frequency/urgency. Denies new onset urinary or bowel incontinence. MSK: Pt denies loss of strength or function in extremities. Neuro: Pt denies new onset weakness, paresthesias. - Related Data Home Medications Medication Instructions Recorded Confirmed FLUoxetine HCL [PROzac] 40 mg PO HS 12/14/14 01/09/17 Multivitamin/Iron/Folic Acid 1 tab PO DAILY 12/14/14 01/09/17 [Centrum Complete Multivit Tab] Cholecalciferol [Vitamin D3 (25 1,000 unit PO DAILY 12/23/14 01/09/17 Mcg = 1000 Iu)] Donepezil [Aricept] 10 mg PO HS 12/23/14 01/09/17 Memantine [Namenda] 5 mg PO DAILY 01/24/16 01/09/17 Primidone [Mysoline] 100 mg PO BID 01/24/16 01/09/17 Solifenacin Succinate [Vesicare] 10 mg PO DAILY 04/28/16 01/11/17 Alendronate Sodium [Fosamax] 70 mg PO WE 09/04/16 01/11/17 Lactulose 10 gm PO DAILY 09/04/16 01/11/17 clonazePAM [KlonoPIN] 1 mg PO BID@0700,1500 09/04/16 01/11/17 clonazePAM [KlonoPIN] 3 mg PO HS@2300 09/04/16 01/11/17 Cyanocobalamin (Vitamin B-12) 1,000 mcg PO DAILY 12/29/16 01/09/17 [Vitamin B-12] Diclofenac Sodium Gel [Voltaren 4 gm TOPICAL QID PRN 12/29/16 01/11/17 Gel] Acetaminophen Tab [Tylenol] 325 mg PO Q4H PRN 01/11/17 01/11/17 Previous Rx's Medication Instructions Recorded Aspirin 325 mg PO DAILY #30 tab 01/12/17 Hydrocodone/Acetaminophen [Brush 1 - 2 each PO Q6HR PRN #60 tab 01/12/17 5-325] Cephalexin [Keflex] 500 mg PO Q12HR 10 Days cap 03/02/19 Allergies Allergy/AdvReac Type Severity Reaction Status Date / Time lorazepam [From Ativan] Allergy Hallucinati Verified 03/02/19 07:59 ons pneumococcal vaccine Allergy Swelling Verified 03/02/19 07:59 Review of Systems ROS Statement: Those systems with pertinent positive or pertinent negative responses have been documented in the HPI. ROS Other: All systems not noted in ROS Statement are negative. Past Medical History Past Medical History: Cancer, GERD/Reflux, Hyperlipidemia, Memory Impairment, Osteoarthritis (OA), Skin Disorder Additional Past Medical History / Comment(s): cervical ca, INCONTINENCE, FRACTURE OF RIGHT ANKLE, psoriasis History of Any Multi-Drug Resistant Organisms: None Reported Past Surgical History: Adenoidectomy, Joint Replacement, Orthopedic Surgery, Tonsillectomy, Tubal Ligation Additional Past Surgical History / Comment(s): mateusz hip and right knee replacement , REVISION OF TOTAL LEFT HIP, R knee arthroscopy, part of cervix removed, EGD/colonoscopy. Past Anesthesia/Blood Transfusion Reactions: No Reported Reaction, Family History of Problems w/ Anesthesia Additional Past Anesthesia/Blood Transfusion Reaction / Comment(s): "father had problem w/spinal & was paralyzed per pt." Past Psychological History: Anxiety, Bipolar, Depression Smoking Status: Never smoker Past Alcohol Use History: Rare Past Drug Use History: None Reported - Past Family History Father Family Medical History: Hypertension Additional Family Medical History / Comment(s): open heart surgery, paralyzed by spinal Mother Family Medical History: Dementia General Exam - General Exam Comments Initial Comments: Constitutional: NAD, AOX3, Pt has pleasant affect. HEENT: NC/AT, trachea midline, neck supple, no lymphadenopathy. Posterior pharynx non erythematous, without exudates. External ears appear normal, without discharge. Mucous membranes moist. Eyes PERRLA, EOM intact. There is no scleral icterus. No pallor noted. Cardiopulmonary: RRR, no murmurs, rubs or gallops, no JVD noted. Lungs CTAB in anterior and posterior thompson. No peripheral edema. Abdominal exam: Abdomen soft and non-distended. Abdomen non-tender to palpation in all 4 quadrants. Bowel sounds active in LLQ. No hepatosplenomegaly. No ecchymosis Neuro: CN II-XII grossly intact. No nuchal rigidity. No raccon eyes, no toscano sign, no hemotympanum. No cervical spinal tenderness. MSK: Mild amount of tenderness to palpation and lateral mid shaft femur. No ecchymoses. Sensation intact. Limbs are equal length. Passive range of motion of right lower extremity intact. Active range of motion limited secondary to pain. No posterior calf tenderness bilaterally, homans sign negative bilaterally. Posterior tibialis and radial pulse +2 bilaterally. Sensation intact in upper and lower extremities. Full active ROM in upper and lower extremities, 5/5 stregnth. Limitations: no limitations Course Vital Signs 03/02/19 03/02/19 03/02/19 07:59 14:18 15:10 Temperature 98 F Pulse Rate 62 60 68 Respiratory 18 16 16 Rate Blood Pressure 115/56 139/98 107/86 O2 Sat by Pulse 99 100 98 Oximetry 03/02/19 15:17 Temperature 98 F Pulse Rate 65 Respiratory 16 Rate Blood Pressure 158/90 O2 Sat by Pulse 98 Oximetry Medical Decision Making - Medical Decision Making 78-year-old female patient with pertinent medical history of total hip replacement 3 times total presents to ED after a fall. Patient was that she was walking in her hallway, loss of balance falling onto her right hip. Patient had this hip replaced approximately [address] De Leon. Patient reports she has pain in her right hip and her right femur area. Patient denies any other complaints at this time. Patient denies any trauma to head or neck. Denies any other complaints. Patient vital signs stable, afebrile. Mild amount of tenderness to palpation and lateral mid shaft femur. No ecchymoses. Sensation intact. Limbs are equal length. Passive range of motion of right lower extremity intact. Active range of motion limited secondary to pain. Plain film of the pelvis, fever, chest did not display acute process. Laboratory investigations revealed mild cytosis of 11.0. CMP non-impressive. UA displayed mild urinary tract infection. Patient is unable to ambulate second jules to pain in right femur region. Patient will be admitted into observation for intractable pain and urinary tract infection. Case discussed with Dr. Cali. - Lab Data Result diagrams: 03/02/19 11:43 03/02/19 11:43 Lab Results 03/02/19 03/02/19 03/02/19 Range/Units 11:43 11:43 11:55 WBC 11.0 H (3.8-10.6) k/uL RBC 3.81 (3.80-5.40) m/uL Hgb 12.4 (11.4-16.0) gm/dL Hct 37.1 (34.0-46.0) % MCV 97.3 (80.0-100.0) fL MCH 32.5 (25.0-35.0) pg MCHC 33.4 (31.0-37.0) g/dL RDW 13.3 (11.5-15.5) % Plt Count 174 (150-450) k/uL Neutrophils % 87 % Lymphocytes % 7 % Monocytes % 4 % Eosinophils % 1 % Basophils % 0 % Neutrophils # 9.6 H (1.3-7.7) k/uL Lymphocytes # 0.8 L (1.0-4.8) k/uL Monocytes # 0.5 (0-1.0) k/uL Eosinophils # 0.1 (0-0.7) k/uL Basophils # 0.0 (0-0.2) k/uL Sodium 140 (137-145) mmol/L Potassium 4.2 (3.5-5.1) mmol/L Chloride 106 (98-107) mmol/L Carbon Dioxide 28 (22-30) mmol/L Anion Gap 6 mmol/L BUN 17 (7-17) mg/dL Creatinine 0.67 (0.52-1.04) mg/dL Est GFR (CKD-EPI)AfAm >90 (>60 ml/min/1.73 sqM) Est GFR (CKD-EPI)NonAf 86 (>60 ml/min/1.73 sqM) Glucose 101 H (74-99) mg/dL Calcium 9.1 (8.4-10.2) mg/dL Total Bilirubin 0.4 (0.2-1.3) mg/dL AST 18 (14-36) U/L ALT 23 (9-52) U/L Alkaline Phosphatase 58 (38-126) U/L Total Protein 6.4 (6.3-8.2) g/dL Albumin 3.8 (3.5-5.0) g/dL Urine Color Yellow Urine Appearance Cloudy H (Clear) Urine pH 5.5 (5.0-8.0) Ur Specific Hamilton 1.017 (1.001-1.035) Urine Protein Negative (Negative) Urine Glucose (UA) Negative (Negative) Urine Ketones 1+ H (Negative) Urine Blood Negative (Negative) Urine Nitrite Negative (Negative) Urine Bilirubin Negative (Negative) Urine Urobilinogen <2.0 (<2.0) mg/dL Ur Leukocyte Esterase Large H (Negative) Urine RBC 3 (0-5) /hpf Urine WBC 61 H (0-5) /hpf Ur Squamous Epith Cells 1 (0-4) /hpf Urine Bacteria Many H (None) /hpf Urine Mucus Occasional H (None) /hpf Disposition Clinical Impression: Fall, UTI (urinary tract infection) Disposition: ADMITTED IP TO THIS HOSP Condition: Stable Prescriptions: Cephalexin [Keflex] 500 mg PO Q12HR 10 Days cap Is patient prescribed a controlled substance at d/c from ED?: No Referrals: Zane Burris DO [Primary Care Provider] - 1-2 days Melchor Hayward MD [STAFF PHYSICIAN] - 1-2 days
--- NOTE | 2019-03-02 11:33 | XR ---
EXAMINATION TYPE: XR Hip RT and AP Pelvis , 3 VIEWS DATE OF EXAM ORDERED: 03/02/2019 HISTORY: Pain. COMPARISON: None. FINDINGS: Bilateral hip prostheses are in place. The right prosthesis is unremarkable. The left is i ncompletely visualized. No acute fracture or dislocation is seen. Degenerative changes noted in the l ower lumbar spine. IMPRESSION: 1. STATUS POST BILATERAL ARTHROPLASTIES. 2 DEGENERATIVE CHANGE. 3. NO ACUTE OSSEOUS LESION.
--- NOTE | 2019-03-02 11:34 | XR ---
EXAMINATION TYPE: XR femur RT , 5 VIEWS DATE OF EXAM ORDERED: 03/02/2019 HISTORY: Pain. COMPARISON: None. FINDINGS: A right hip hemiarthroplasties in place. Prosthetic elements are in good position. There i s a right total knee prosthesis in place. Prosthetic elements appear in good position. No acute fract ure or dislocation is seen. IMPRESSION: 1. NO ACUTE OSSEOUS LESION. 2. STATUS POST RIGHT HIP AND KNEE ARTHROPLASTIES.
--- NOTE | 2019-03-02 11:35 | XR ---
EXAMINATION TYPE: XR chest 2V DATE OF EXAM: 03/02/2019 HISTORY: Pain. REFERENCE: Previous study dated 04/28/2016. FINDINGS: The lungs appear clear. Pleural space are clear. The heart is not enlarged. IMPRESSION: NO ACTIVE INTRATHORACIC DISEASE.
[2019-03-02 11:51] LABS: Basophils % (A) 0 %; Eosinophils # (A) 0.1 k/uL (0-0.7); Eosinophils % (A) 1 %; HCT 37.1 % (34.0-46.0); HGB 12.4 gm/dL (11.4-16.0); Lymphocytes # (A) 0.8 k/uL (1.0-4.8); Lymphocytes % (A) 7 %; MCH 32.5 pg (25.0-35.0); MCHC 33.4 g/dL (31.0-37.0); MCV 97.3 fL (80.0-100.0); Mean Platelet Volume 7.9; Monocytes # (A) 0.5 k/uL (0-1.0); Monocytes % (A) 4 %; Neutrophils # (A) 9.6 k/uL (1.3-7.7); Neutrophils % (A) 87 %; Platelet Count 174 k/uL (150-450); RBC 3.81 m/uL (3.80-5.40); RDW 13.3 % (11.5-15.5)
[2019-03-02 12:12] LABS: ALT 23 U/L (9-52); AST 18 U/L (14-36); African American GFR (CKD) >90 (>60 ml/min/1.73 sqM); Albumin 3.8 g/dL (3.5-5.0); Alkaline Phosphatase 58 U/L (38-126); Anion Gap 6 mmol/L; Blood Urea Nitrogen 17 mg/dL (7-17); Calcium 9.1 mg/dL (8.4-10.2); Carbon Dioxide 28 mmol/L (22-30); Chloride 106 mmol/L (98-107); Glucose 101 mg/dL (74-99); Potassium 4.2 mmol/L (3.5-5.1); Sodium 140 mmol/L (137-145); Total Bilirubin 0.4 mg/dL (0.2-1.3); Total Protein 6.4 g/dL (6.3-8.2)
[2019-03-02 12:43] LABS: Appearance,Urine Cloudy (Clear); Bacteria,Urine Many /hpf; Bilirubin,Urine Negative (Negative); Blood,Urine Negative (Negative); Color,Urine Yellow; Glucose,Urine (UA) Negative (Negative); Ketones,Urine 1+ (Negative); Leukocyte Esterase,Urine Large (Negative); Mucus,Urine Occasional /hpf; Nitrite,Urine Negative (Negative); PH, Urine 5.5 (5.0-8.0); Protein,Urine Negative (Negative); RBC,Urine 3 /hpf (0-5); Specific Gravity,Urine 1.017 (1.001-1.035); Squamous Epithelial Cell,Urine 1 /hpf (0-4); Urobilinogen,Urine <2.0 mg/dL (<2.0); WBC,Urine 61 /hpf (0-5)
[2019-03-02] MEDS ORDERED: CEPHALEXIN 500 MG CAP PO STA (12:53)
[2019-03-02] MEDS ORDERED: CEPHALEXIN 500MG STARTER PACK 4 CAP BTL PO STA (12:53)
[2019-03-02] MEDS ORDERED: HYDROcodone/APAP 7.5-325MG 1 EACH TAB PO ONE (13:03)
[2019-03-02] MEDS ORDERED: ACET/COD 300 MG/30 MG STARTER PACK 6 TAB BTL PO STA (13:17)
[2019-03-02] MEDS ORDERED: NALOXONE 0.4 MG/ML 1 ML VIAL IV PRN (15:27)
[2019-03-02] MEDS ORDERED: MORPHINE SULFATE 4 MG/ML SYRINGE IV PRN (15:27)
[2019-03-02] MEDS ORDERED: ACETAMINOPHEN TAB 325 MG TAB PO PRN (15:30)
--- NOTE | 2019-03-02 15:34 | ED ---
Medical Decision Making - Lab Data Result diagrams: 03/02/19 11:43 03/02/19 11:43 <Melchor Naylor - Last Filed: 03/02/19 15:33> - Lab Data Result diagrams: 03/02/19 11:43 03/02/19 11:43 <Kole Cali - Last Filed: 03/02/19 15:41> - Medical Decision Making Constitutional: NAD, AOX3, Pt has pleasant affect. HEENT: NC/AT, trachea midline, neck supple, no lymphadenopathy. Posterior pharynx non erythematous, without exudates. External ears appear normal, without discharge. Mucous membranes moist. Eyes PERRLA, EOM intact. There is no scleral icterus. No pallor noted. Cardiopulmonary: RRR, no murmurs, rubs or gallops, no JVD noted. Lungs CTAB in anterior and posterior thompson. No peripheral edema. Abdominal exam: Abdomen soft and non-distended. Abdomen non-tender to palpation in all 4 quadrants. Bowel sounds active in LLQ. No hepatosplenomegaly. No ecchymosis Neuro: CN II-XII intact. No nuchal rigidity. No raccon eyes, no toscano sign, no hemotympanum. No cervical spinal tenderness. MSK: Mild amount of tenderness to palpation and lateral mid shaft femur. No ecchymoses. Sensation intact. Limbs are equal length. Passive range of motion of right lower extremity intact. Active range of motion limited secondary to pain. No posterior calf tenderness bilaterally, homans sign negative bilaterally. Posterior tibialis and radial pulse +2 bilaterally. Sensation intact in upper and lower extremities. Full active ROM in upper extremities, 5/5 stregnth. No tenderness to cervical, thoracic, lumbar spine. (Melchor Naylor) Case was discussed with practitioner milton. Chart reviewed. Results reviewed. Case was discussed with Dr. mendez, covering for Dr. Wynne, who admits for Dr. Burris, who will admit. (Kole Cali) - Lab Data Lab Results 03/02/19 03/02/19 03/02/19 Range/Units 11:43 11:43 11:55 WBC 11.0 H (3.8-10.6) k/uL RBC 3.81 (3.80-5.40) m/uL Hgb 12.4 (11.4-16.0) gm/dL Hct 37.1 (34.0-46.0) % MCV 97.3 (80.0-100.0) fL MCH 32.5 (25.0-35.0) pg MCHC 33.4 (31.0-37.0) g/dL RDW 13.3 (11.5-15.5) % Plt Count 174 (150-450) k/uL Neutrophils % 87 % Lymphocytes % 7 % Monocytes % 4 % Eosinophils % 1 % Basophils % 0 % Neutrophils # 9.6 H (1.3-7.7) k/uL Lymphocytes # 0.8 L (1.0-4.8) k/uL Monocytes # 0.5 (0-1.0) k/uL Eosinophils # 0.1 (0-0.7) k/uL Basophils # 0.0 (0-0.2) k/uL Sodium 140 (137-145) mmol/L Potassium 4.2 (3.5-5.1) mmol/L Chloride 106 (98-107) mmol/L Carbon Dioxide 28 (22-30) mmol/L Anion Gap 6 mmol/L BUN 17 (7-17) mg/dL Creatinine 0.67 (0.52-1.04) mg/dL Est GFR (CKD-EPI)AfAm >90 (>60 ml/min/1.73 sqM) Est GFR (CKD-EPI)NonAf 86 (>60 ml/min/1.73 sqM) Glucose 101 H (74-99) mg/dL Calcium 9.1 (8.4-10.2) mg/dL Total Bilirubin 0.4 (0.2-1.3) mg/dL AST 18 (14-36) U/L ALT 23 (9-52) U/L Alkaline Phosphatase 58 (38-126) U/L Total Protein 6.4 (6.3-8.2) g/dL Albumin 3.8 (3.5-5.0) g/dL Urine Color Yellow Urine Appearance Cloudy H (Clear) Urine pH 5.5 (5.0-8.0) Ur Specific [place] 1.017 (1.001-1.035) Urine Protein Negative (Negative) Urine Glucose (UA) Negative (Negative) Urine Ketones 1+ H (Negative) Urine Blood Negative (Negative) Urine Nitrite Negative (Negative) Urine Bilirubin Negative (Negative) Urine Urobilinogen <2.0 (<2.0) mg/dL Ur Leukocyte Esterase Large H (Negative) Urine RBC 3 (0-5) /hpf Urine WBC 61 H (0-5) /hpf Ur Squamous Epith Cells 1 (0-4) /hpf Urine Bacteria Many H (None) /hpf Urine Mucus Occasional H (None) /hpf Disposition Is patient prescribed a controlled substance at d/c from ED?: No <Melchor Naylor - Last Filed: 03/02/19 15:33> <Kole Cali - Last Filed: 03/02/19 15:41> Clinical Impression: Fall, UTI (urinary tract infection) Disposition: ADMITTED IP TO THIS HOSP Condition: Stable Prescriptions: Cephalexin [Keflex] 500 mg PO Q12HR 10 Days cap Referrals: Zane Burris DO [Primary Care Provider] - 1-2 days Melchor Hayward MD [STAFF PHYSICIAN] - 1-2 days
[2019-03-02] MEDS: SODIUM CHLORIDE 0.9% 1,000 ML IV SCH (16:25)
[2019-03-02 18:38] VITALS: BMI 26.2
[2019-03-02] MEDS: HYDROmorphone 0.5 MG/0.5 ML SYRINGE IVP PRN (23:34)
[2019-03-02] MEDS: PRIMIDONE 50 MG TAB PO SCH (23:34)
[2019-03-03] MEDS: HYDROmorphone 0.5 MG/0.5 ML SYRINGE IVP PRN ×5 (04:22→21:56)
[2019-03-03] MEDS: SODIUM CHLORIDE 0.9% 1,000 ML IV SCH ×3 (04:22→22:05)
--- NOTE | 2019-03-03 06:52 | HP ---
HISTORY AND PHYSICAL DATE OF SERVICE: 03/03/2019. CHIEF COMPLAINTS: Fall and as well as UTI. HISTORY OF PRESENT ILLNESS: This 78-year-old woman with a past medical history of multiple medical problems including GERD, hyperlipidemia, memory impairment, DJD, history of cervical cancer, incontinence being followed by Dr. Burris in the outpatient setting is apparently a resident of [facility]. The patient apparently had no electricity today and the patient apparently went to the bathroom and fell on the left hip and the patient complaining of severe pain, inability to walk and move the leg and patient came to [facility] and was admitted for further evaluation and treatment. Femur x- rays and pelvic x-rays read by Radiology did not show any fractures and the patient admitted for further evaluation and treatment. The patient complaining of severe pain. There is no history of fever, rigors, chills at this time. The patient has seen Dr. Hayward previously for the surgery. The patient has shaking chills at the time of admission. PAST MEDICAL HISTORY: History of GERD, hyperlipidemia, history of memory impairment, history of cervical cancer, adenoidectomy, anxiety, bipolar depression. MEDICATIONS: Home medications are: 1. Mysoline 100 mg p.o. b.i.d. 2. Multivitamins one p.o. daily. 3. Prozac 40 mg q.h.s. 4. Aricept 10 mg q.h.s. 5. Aspirin 325 mg p.o. daily. 6. Klonopin 1 mg p.o. b.i.d. and 3 mg p.o. q.h.s. 7. VESIcare 10 mg p.o. daily. 8. Namenda 5 mg p.o. daily. 9. Lactulose 10 p.o. daily. 10.[place] 5 mg 1 tab q.6 p.r.n. 11.Voltaren gel 4 grams topically q.i.d. p.r.n. 12.Vitamin B12, 1000 mcg p.o. daily. 13.Vitamin D3, 1000 daily. 14.Fosamax 70 mg p.o. Sunday. 15.Tylenol 325 mg p.o. q.4 p.r.n. 16.Keflex 500 mg p.o. b.i.d. ALLERGIES: ATIVAN and PNEUMOCOCCAL VACCINE. FAMILY HISTORY: History of hypertension, open heart surgery. SOCIAL HISTORY: No history of smoking. Occasional alcohol intake. REVIEW OF SYSTEMS: ENT: Diminished hearing and diminished vision. CARDIOVASCULAR SYSTEM: No angina. RESPIRATORY SYSTEM: As mentioned earlier. GI: No nausea. : No dysuria. NERVOUS SYSTEM: As mentioned earlier. ALLERGY/IMMUNOLOGY: No asthma or hayfever. MUSCULOSKELETAL: As mentioned earlier. HEMATOLOGY/ONCOLOGY: No history of anemia. ENDOCRINE: No history of diabetes or hypothyroidism. CONSTITUTIONAL: As mentioned earlier. DERMATOLOGY: Negative. RHEUMATOLOGY negative. PSYCHIATRY: As mentioned earlier. PHYSICAL EXAMINATION: The patient is alert and oriented x3_. Pulse 61, blood pressure 133/73, respiration 18, temperature 98 degrees, pulse ox 99% on room air. HEENT: Conjunctivae normal. Oral mucosa moist. NECK: No jugular venous distention. CARDIOVASCULAR: S1, S2 muffled. No S3, no S4. S2 normal. RESPIRATORY: Breath sounds diminished at the bases. No rhonchi, no crackles. ABDOMEN: Soft, nontender. No mass palpable. LEGS: Movement of the right leg is significantly painful, limited and no swelling noted. NERVOUS SYSTEM: Higher function as mentioned. Moves all 4 limbs. No focal motor deficits. Gait cannot be tested. LYMPHATICS: No lymphadenopathy of the neck, axillae or groin. SKIN: No ulcer, rash or bleeding. JOINTS: As mentioned earlier. Right hip joint is severely painful. LAB INVESTIGATIONS: At this time, x-rays are noted otherwise WBC 11, hemoglobin 12.4. UA noted UTI. ASSESSMENT: 1. Acute urinary tract infection present on admission, with possible sepsis. 2. Fall and significant right hip pain, possibly contusion. 3. Increased WBC. 4. Gastroesophageal reflux disease. 5. Hyperlipidemia. 6. History of memory impairment. 7. History of cervical cancer. 8. History of psoriasis. 9. History of degenerative joint disease. 10.History of anxiety, bipolar depression. 11.FULL CODE. RECOMMENDATIONS AND DISCUSSION: This 78-year-old woman who presented with multiple complex medical issues, at this time I recommend to continue current medications, continue symptomatic treatment. The patient had features of sepsis. At this time, the patient has shaking chills. I would recommend to continue the IV antibiotics. Otherwise follow the cultures. Infectious Disease evaluation. I would also recommend orthopedic evaluation for this severe pain. Symptomatic treatment of pain will be provided along with DVT prophylaxis, PT,OT evaluation and guarded prognosis because of multiple complex medical issues. Further recommendations to follow. MMODL / IJN: [id number] / MTDMary Anne
[2019-03-03] MEDS: PRIMIDONE 50 MG TAB PO SCH ×2 (07:18→21:59)
[2019-03-03] MEDS: PANTOPRAZOLE 40 MG TABLET PO SCH (07:18)
[2019-03-03] MEDS: HEPARIN SODIUM,PORCINE 5,000 UNIT/ML 1 ML VIAL SQ SCH ×2 (07:19→21:58)
[2019-03-03] MEDS: MULTIVITAMINS, THERA 1 EACH TAB PO SCH (07:19)
[2019-03-03] MEDS ORDERED: ASPIRIN 325 MG TAB PO SCH (09:00)
[2019-03-03 09:07] LABS: Basophils % (A) 0 %; Eosinophils # (A) 0.1 k/uL (0-0.7); Eosinophils % (A) 2 %; HCT 34.9 % (34.0-46.0); HGB 11.4 gm/dL (11.4-16.0); Lymphocytes # (A) 0.7 k/uL (1.0-4.8); Lymphocytes % (A) 15 %; MCH 32.5 pg (25.0-35.0); MCHC 32.6 g/dL (31.0-37.0); MCV 99.9 fL (80.0-100.0); Mean Platelet Volume 7.3; Monocytes # (A) 0.3 k/uL (0-1.0); Monocytes % (A) 6 %; Neutrophils # (A) 3.6 k/uL (1.3-7.7); Neutrophils % (A) 75 %; Platelet Count 135 k/uL (150-450); RDW 12.6 % (11.5-15.5); WBC 4.8 k/uL (3.8-10.6)
[2019-03-03 09:18] LABS: African American GFR (CKD) >90 (>60 ml/min/1.73 sqM); Anion Gap 7 mmol/L; Blood Urea Nitrogen 12 mg/dL (7-17); Calcium 8.5 mg/dL (8.4-10.2); Carbon Dioxide 26 mmol/L (22-30); Chloride 107 mmol/L (98-107); Glucose 165 mg/dL (74-99); Sodium 140 mmol/L (137-145)
[2019-03-03] MEDS: HYDROcodone/APAP 5-325MG 1 EACH TAB PO PRN ×2 (09:40→22:46)
--- NOTE | 2019-03-03 14:25 | P.CNOR ---
History of Present Illness - [facility] Consult date: 03/03/19 Consult reason: fracture History of present illness: Patient is 78-year-old female who presented to [facility] yesterday morning after sustaining a fall. Patient was walking to her bathroom in her apartment when she fell onto the right side. Patient was unable to weight-bear and had excruciating pain of the right leg. Upon arrival to the hospital, imaging and lab tests were done of the right lower extremity. No fractures were noted on x-ray reports, she was admitted under internal medicine for significant pain with inability to ambulate, along with possible UTI. Orthopedic team was then consult with regards to the right lower extremity pain. She has a history of a previous right hemiarthroplasty that was done by Dr. Hayward. She's been considering having her right knee is advised also by Dr. Hayward and being followed in the outpatient setting for this. Patient was examined at bedside today, she is resting comfortably. She notes most pain in the right upper thigh, mainly tries to move it. She denies any new onset right knee pain. She denies any left lower extremity pain. She denies any new onset cervical and thoracic pain. Patient states that she utilizes a cane for ambulation. She is a resident at the [facility] home, she's been up for about 4 years. I was able to review the x-rays of the right lower extremity, images did demonstrate a unicortical fracture involving the proximal right femur. Prosthesis of the right hip appears stable at this time. Review of Systems Constitutional: Reports as per [facility] Past Medical History Past Medical History: Cancer, GERD/Reflux, Hyperlipidemia, Memory Impairment, Osteoarthritis (OA), Skin Disorder Additional Past Medical History / Comment(s): cervical ca, INCONTINENCE, FRACTURE OF RIGHT ANKLE, psoriasis History of Any Multi-Drug Resistant Organisms: None Reported Past Surgical History: Adenoidectomy, Joint Replacement, Orthopedic Surgery, Tonsillectomy, Tubal Ligation Additional Past Surgical History / Comment(s): mateusz hip and right knee replac ement , REVISION OF TOTAL LEFT HIP, R knee arthroscopy, part of cervix removed, EGD/colonoscopy. Past Anesthesia/Blood Transfusion Reactions: No Reported Reaction, Family Hist ory of Problems w/ Anesthesia Additional Past Anesthesia/Blood Transfusion Reaction / Comm: "father had problem w/spinal & was paralyzed per pt." Past Psychological History: Anxiety, Bipolar, Depression Additional Psychological History / Comment(s): lives at [facility] Smoking Status: Never smoker Past Alcohol Use History: Rare Additional Past Alcohol Use History / Comment(s): started smoking in her 50's only smoked x 1 month then quit, occ glass of wine at holidays or if someone visits Past Drug Use History: None Reported - Past Family History Father Family Medical History: Hypertension Additional Family Medical History / Comment(s): open heart surgery, paralyzed by spinal Mother Family Medical History: Dementia Medications and Allergies Home Medications Medication Instructions Recorded Confirmed Type FLUoxetine HCL [PROzac] 40 mg PO HS 12/14/14 03/03/19 History Multivitamin/Iron/Folic Acid 1 tab PO DAILY 12/14/14 03/03/19 History [Centrum Complete Multivit Tab] Cholecalciferol [Vitamin D3 (25 1,000 unit PO DAILY 12/23/14 03/03/19 History Mcg = 1000 Iu)] Donepezil [Aricept] 10 mg PO HS 12/23/14 03/03/19 History Memantine [Namenda] 5 mg PO DAILY 01/24/16 03/03/19 History Primidone [Mysoline] 50 mg PO QID 01/24/16 03/03/19 History Alendronate Sodium [Fosamax] 70 mg PO WE 09/04/16 03/03/19 History clonazePAM [KlonoPIN] 1 mg PO BID@0700,1500 09/04/16 03/03/19 History clonazePAM [KlonoPIN] 2 mg PO HS@2300 09/04/16 03/03/19 History Cyanocobalamin (Vitamin B-12) 1,000 mcg PO DAILY 12/29/16 03/03/19 History [Vitamin B-12] Cephalexin [Keflex] 500 mg PO Q12HR 10 Days cap 03/02/19 Rx Aspirin EC [Ecotrin Low Dose] 81 mg PO DAILY 03/03/19 03/03/19 History Calcium/Magnesium/Zinc 1 tab PO DAILY 03/03/19 03/03/19 History [Itjlfte-Afmdskvff-Brjm Tablet] Chlorhexidine Gluconate [Periogard] 15 ml MUCOUS MEM BID 03/03/19 03/03/19 History Lubiprostone [Amitiza] 24 mcg PO BID 03/03/19 03/03/19 History Meloxicam [Mobic] 7.5 mg PO BID 03/03/19 03/03/19 History Mirabegron [Myrbetriq] 50 mg PO DAILY 03/03/19 03/03/19 History traZODone HCL 200 mg PO HS 03/03/19 03/03/19 History Allergies Allergy/AdvReac Type Severity Reaction Status Date / Time lorazepam [From Ativan] Allergy Hallucinati Verified 03/03/19 08:10 ons pneumococcal vaccine Allergy Swelling Verified 03/03/19 08:10 Physical Examination Right lower extremity: No obvious open lesions or sores present throughout the extremity, no significant areas of erythema or soft tissue swelling Previous scars noted on the lateral aspect of the right hip along with anterior knee No effusion appreciated around the knee, no significant tenderness with palpation Tenderness with palpation noted at the proximal thigh Patient is unable to straight leg raise, logroll maneuver the hip reproduces significant pain Attempted hip flexion along with knee flexion does reproduce pain in the right upper thigh Plantar flexion, dorsiflexion, EHL, FHL are intact. Sensory exam to light touch throughout the extremities intact Results - Labs Labs: Abnormal Lab Results - Last 24 Hours (Table) 03/03/19 03/03/19 Range/Units 08:45 08:45 RBC 3.50 L (3.80-5.40) m/uL Plt Count 135 L (150-450) k/uL Lymphocytes # 0.7 L (1.0-4.8) k/uL Creatinine 0.49 L (0.52-1.04) mg/dL Glucose 165 H (74-99) mg/dL Microbiology - Last 24 Hours (Table) 03/02/19 11:55 Urine Culture - Preliminary Urine,Voided H & H 03/02/19 03/03/19 Range/Units 11:43 08:45 Hgb 12.4 11.4 (11.4-16.0) gm/dL Hct 37.1 34.9 (34.0-46.0) % Result Diagrams: 03/03/19 08:45 03/03/19 08:45 - Diagnostic results Hip x-ray: report reviewed, image reviewed Knee x-ray: report reviewed, image reviewed Assessment and Plan Plan: Imaging: Multiple x-rays were reviewed of the right lower extremity. Images of the right hip do demonstrate a stable appearing hemiarthroplasty component. There is evidence of a unicortical proximal femur fracture. Images of the knee demonstrate no acute fractures or dislocations. Assessment: Right unicortical proximal periprosthetic femur fracture Stable right hip hemiarthroplasty Stable right knee arthroplasty Recent fall from standing Other medical comorbidities Plan: I was able to discuss the case, including the physical exam findings and imaging studies with my attending Dr. Falcon. Components appear stable at this time, no orthopedic surgical intervention. Patient will remain nonweightbearing on the right lower extremity, toe-touch with transfers, utilize walker. Recommend physical therapy evaluation for education on transferring Pain control via primary medical service GI and DVT prophylaxis via primary medical service Patient will likely need placement for subacute rehab We'll be available for any further questions regarding this patient Time with Patient: Less than 30
[2019-03-03] MEDS: clonazePAM 1 MG TAB PO SCH ×2 (14:43→21:58)
--- NOTE | 2019-03-03 16:45 | P.PN ---
Subjective Progress Note Date: 03/03/19 Principal diagnosis: This is a 78-year-old female with a past medical history of multiple medical problems who had a recent fall and is being admitted for right-sided hip and leg pain. Patient was staying at [facility] home. Awaiting orthopedic consult at this time. Patient denies any nausea, vomiting, or diarrhea at this time. Patient denies any chest pain, palpitations, or shortness of breath at this time. Patient does have severe right leg and hip pain. Objective - Vital Signs Vital signs: Vital Signs Temp 96.9 F L 03/03/19 13:24 Pulse 59 L 03/03/19 13:24 Resp 16 03/03/19 13:24 BP 138/65 03/03/19 13:24 Pulse Ox 98 03/03/19 13:24 Intake & Output 03/02/19 03/03/19 03/03/19 18:59 06:59 18:59 Intake Total 650 480 Balance 650 480 Weight 71.577 kg Intake: Oral 650 480 Other: Voiding Method Bedpan Bedpan # Voids 8 8 # Bowel Movements 0 - Exam Gen: This is a 78-year-old female lying in bed appears in no acute distress unless you touch the right leg or hip. HEENT: Head is atraumatic, normocephalic. Pupils equal, round. Sclerae is anicteric. NECK: Supple. No JVD. No lymphadenopathy. No thyromegaly. LUNGS: Clear to auscultation. No wheezes or rhonchi. No intercostal re tractions. HEART: Regular rate and rhythm. No murmur. ABDOMEN: Soft. Bowel sounds are present. No masses. No tenderness. EXTREMITIES: No pedal edema. No calf tenderness. Right leg and hip tenderness and unable to lift the leg off the bed NEUROLOGICAL: Patient is awake, alert and oriented x3. Cranial nerves 2 through 12 are grossly intact. - Labs CBC & Chem 7: 03/03/19 08:45 03/03/19 08:45 Labs: Abnormal Lab Results - Last 24 Hours (Table) 03/03/19 03/03/19 Range/Units 08:45 08:45 RBC 3.50 L (3.80-5.40) m/uL Plt Count 135 L (150-450) k/uL Lymphocytes # 0.7 L (1.0-4.8) k/uL Creatinine 0.49 L (0.52-1.04) mg/dL Glucose 165 H (74-99) mg/dL Microbiology - Last 24 Hours (Table) 03/02/19 11:55 Urine Culture - Preliminary Urine,Voided Assessment and Plan Assessment: Acute urinary tract infection present on admission, with possible sepsis. Currently on IV antibiotics. Will await urine cultures Recent fall and significant right hip pain, possibly contusion. Awaiting ortho consult. X-rays were negative for any fractures. Increased WBC. Resolved. Current WBC is 4.8 Gastroesophageal reflux disease Hyperlipidemia History of memory impairment History of cervical cancer History of psoriasis History of degenerative joint disease History of anxiety, bipolar depression Full code Patient's and discussion: Recommend continue current medications and continue symptomatic treatment. Continue IV antibiotics and will await cultures for urine. Continue with the rest of medications and pain management. Closely monitor. Prognosis is guarded. Further recommendations to follow. Awaiting orthopedic consult.
[2019-03-03] MEDS: CHLORHEXIDINE GLUCONATE 15 ML CUP MUCOUS MEM SCH (21:58)
[2019-03-03] MEDS: traZODone HCL 100 MG TAB PO SCH (21:58)
[2019-03-03] MEDS: MELOXICAM 7.5 MG TAB PO SCH (21:59)
[2019-03-03] MEDS: DONEPEZIL 10 MG TAB PO SCH (21:59)
[2019-03-03] MEDS: FLUoxetine HCL 20 MG CAP PO SCH (21:59)
[2019-03-03] MEDS: NON-FORMULARY DRUG (Lubiprostone [Amitiza] 24 MCG) PO SCH (22:01)
--- NOTE | 2019-03-03 23:50 | P.CONS ---
History of Present Illness - Reason for Consult Consult date: 03/03/19 Sepsis Requesting physician: Donald Pang - Chief Complaint Fall with the right hip pain x 1 day - History of Present Illness Patient is a 78-year-old female presenting to the ER after pending the patient did have a fall while she was walking the hallway holding on the right side of her body was subsequent pain to the right hip and right ankle area in describing to be dull aching 4-5/10 and no radiation with no associated swelling or redness or any laceration or wound, the patient denies having any loss of consciousness no fever no chills no nausea no vomiting no, pain or any diarrhea with these symptoms the patient has been evaluated by the ER physician patient on presentation to hospital was afebrile she did have mildly elevated white count of 11,000 the patient had did have x-rays of the hip those were negative for any bony abnormality the patient did have a positive UA with concern for urinary tract infection she did receive doses of Keflex in the ER subsequently was started on Rocephin and admitted to the hospital infection disease was consu lted for further recommendation regarding antibiotic therapy patient isn't a very good historian as for his urinary symptoms of concern at times she says she has some burning but no suprapubic or flank pain no nausea no vomiting, Review of Systems Positive points has been mentioned in HPI rest of the systems are negative Past Medical History Past Medical History: Cancer, GERD/Reflux, Hyperlipidemia, Memory Impairment, Osteoarthritis (OA), Skin Disorder Additional Past Medical History / Comment(s): cervical ca, INCONTINENCE, FRACTURE OF RIGHT ANKLE, psoriasis History of Any Multi-Drug Resistant Organisms: None Reported Past Surgical History: Adenoidectomy, Joint Replacement, Orthopedic Surgery, Tonsillectomy, Tubal Ligation Additional Past Surgical History / Comment(s): mateusz hip and right knee replacement , REVISION OF TOTAL LEFT HIP, R knee arthroscopy, part of cervix removed, EGD/colonoscopy. Past Anesthesia/Blood Transfusion Reactions: No Reported Reaction, Family History of Problems w/ Anesthesia Additional Past Anesthesia/Blood Transfusion Reaction / Comm: "father had problem w/spinal & was paralyzed per pt." Past Psychological History: Anxiety, Bipolar, Depression Additional Psychological History / Comment(s): lives at [facility] Smoking Status: Never smoker Past Alcohol Use History: Rare Additional Past Alcohol Use History / Comment(s): started smoking in her 50's only smoked x 1 month then quit, occ glass of wine at holidays or if someone visits Past Drug Use History: None Reported - Past Family History Father Family Medical History: Hypertension Additional Family Medical History / Comment(s): open heart surgery, paralyzed by spinal Mother Family Medical History: Dementia Medications and Allergies Home Medications Medication Instructions Recorded Confirmed Type FLUoxetine HCL [PROzac] 40 mg PO HS 12/14/14 03/03/19 History Multivitamin/Iron/Folic Acid 1 tab PO DAILY 12/14/14 03/03/19 History [Centrum Complete Multivit Tab] Cholecalciferol [Vitamin D3 (25 1,000 unit PO DAILY 12/23/14 03/03/19 History Mcg = 1000 Iu)] Donepezil [Aricept] 10 mg PO HS 12/23/14 03/03/19 History Memantine [Namenda] 5 mg PO DAILY 01/24/16 03/03/19 History Primidone [Mysoline] 50 mg PO QID 01/24/16 03/03/19 History Alendronate Sodium [Fosamax] 70 mg PO WE 09/04/16 03/03/19 History clonazePAM [KlonoPIN] 1 mg PO BID@0700,1500 09/04/16 03/03/19 History clonazePAM [KlonoPIN] 2 mg PO HS@2300 09/04/16 03/03/19 History Cyanocobalamin (Vitamin B-12) 1,000 mcg PO DAILY 12/29/16 03/03/19 History [Vitamin B-12] Cephalexin [Keflex] 500 mg PO Q12HR 10 Days cap 03/02/19 Rx Aspirin EC [Ecotrin Low Dose] 81 mg PO DAILY 03/03/19 03/03/19 History Calcium/Magnesium/Zinc 1 tab PO DAILY 03/03/19 03/03/19 History [Dvqdzjc-Sdrkcrsoo-Ytyb Tablet] Chlorhexidine Gluconate [Periogard] 15 ml MUCOUS MEM BID 03/03/19 03/03/19 History Lubiprostone [Amitiza] 24 mcg PO BID 03/03/19 03/03/19 History Meloxicam [Mobic] 7.5 mg PO BID 03/03/19 03/03/19 History Mirabegron [Myrbetriq] 50 mg PO DAILY 03/03/19 03/03/19 History traZODone HCL 200 mg PO HS 03/03/19 03/03/19 History Allergies Allergy/AdvReac Type Severity Reaction Status Date / Time lorazepam [From Ativan] Allergy Hallucinati Verified 03/03/19 08:10 ons pneumococcal vaccine Allergy Swelling Verified 03/03/19 08:10 Physical Exam Vitals: Vital Signs Temp Pulse Pulse Resp BP BP Pulse Ox 03/03/19 05:00 98.3 F 72 18 148/69 100 03/02/19 21:00 98.0 F 61 18 133/73 99 03/02/19 18:38 99.4 F 65 16 114/89 100 03/02/19 18:15 98.1 F 62 16 130/60 100 03/02/19 17:15 98.6 F 56 L 18 120/58 98 03/02/19 15:17 98 F 65 16 158/90 98 03/02/19 15:10 68 16 107/86 98 03/02/19 14:18 60 16 139/98 100 Intake and Output 03/02/19 03/03/19 03/03/19 22:59 06:59 14:59 Intake Total 400 250 240 Balance 400 250 240 Intake: Oral 400 250 240 Other: Voiding Method Bedpan Bedpan Bedpan # Voids 2 8 3 # Bowel Movements 0 GENERAL DESCRIPTION: Elderly female lying in bed, no distress. No tachypnea or accessory muscle of respiration use. HEENT: Shows Pallor , no scleral icterus. Oral mucous membrane is dry. No pharyngeal erythema or thrush NECK: Trachea central, no thyromegaly. LUNGS: Unlabored breathing. Clear to auscultation anteriorly. No wheeze or crackle. HEART: S1, S2, regular rate and rhythm. No loud murmur ABDOMEN: Soft, no tenderness , guarding or rigidity, no organomegaly EXTREMITIES: No edema of feet. SKIN: No rash, no masses palpable. NEUROLOGICAL: The patient is awake, alert, oriented x3, mood and affect normal. Results CBC & Chem 7: 03/03/19 08:45 03/03/19 08:45 Labs: Abnormal Lab Results - Last 24 Hours (Table) 03/03/19 03/03/19 Range/Units 08:45 08:45 RBC 3.50 L (3.80-5.40) m/uL Plt Count 135 L (150-450) k/uL Lymphocytes # 0.7 L (1.0-4.8) k/uL Creatinine 0.49 L (0.52-1.04) mg/dL Glucose 165 H (74-99) mg/dL Microbiology - Last 24 Hours (Table) 03/02/19 11:55 Urine Culture - Preliminary Urine,Voided Assessment and Plan Assessment: 1-patient being admitted hospital with a fall in this patient with no loss of consciousness no fever patient did have mildly elevated white count and a positive UA with minimal urinary symptoms underlying urinary tract infection from enteric gram-negative pathogen not entirely excluded Plan: 1-Rocephin 1 g IV piggyback daily 2-gentle IV fluid we will follow on clinical condition and culture to further adjust medication if needed Thank you for this consultation will follow this patient along with you Time with Patient: Greater than 30
[2019-03-04] MEDS: HYDROcodone/APAP 5-325MG 1 EACH TAB PO PRN ×2 (06:00→15:17)
[2019-03-04] MEDS: NON-FORMULARY DRUG (Lubiprostone [Amitiza] 24 MCG) PO SCH ×2 (07:23→20:33)
[2019-03-04] MEDS: NON-FORMULARY DRUG (Mirabegron [Myrbetriq] 50 MG) PO SCH (07:25)
[2019-03-04] MEDS: MEMANTINE 5 MG TAB PO SCH (07:31)
[2019-03-04] MEDS: CHOLECALCIFEROL 1,000 UNIT TAB PO SCH (07:31)
[2019-03-04] MEDS: PANTOPRAZOLE 40 MG TABLET PO SCH (07:31)
[2019-03-04] MEDS: ASPIRIN 81 MG PO SCH (07:31)
[2019-03-04] MEDS: MULTIVITAMINS, THERA 1 EACH TAB PO SCH (07:31)
[2019-03-04] MEDS: clonazePAM 1 MG TAB PO SCH ×3 (07:31→23:28)
[2019-03-04] MEDS: PRIMIDONE 50 MG TAB PO SCH ×2 (07:31→20:33)
[2019-03-04] MEDS: MELOXICAM 7.5 MG TAB PO SCH ×2 (07:31→20:33)
[2019-03-04] MEDS: CYANOCOBALAMIN 500 MCG TAB PO SCH (07:31)
[2019-03-04] MEDS: HYDROmorphone 0.5 MG/0.5 ML SYRINGE IVP PRN ×6 (07:33→23:28)
[2019-03-04] MEDS: HEPARIN SODIUM,PORCINE 5,000 UNIT/ML 1 ML VIAL SQ SCH ×2 (07:33→20:33)
[2019-03-04] MEDS: SODIUM CHLORIDE 0.9% 1,000 ML IV SCH (07:38)
[2019-03-04] MEDS: DOCUSATE 100 MG CAP PO SCH (07:54)
[2019-03-04] MEDS ORDERED: NON-FORMULARY DRUG (Calcium/Magnesium/Zinc [Calcium-Magnesium-Zinc Tablet] 1 TAB) PO SCH (09:00)
[2019-03-04] MEDS: CHLORHEXIDINE GLUCONATE 15 ML CUP MUCOUS MEM SCH ×2 (10:21→20:33)
--- NOTE | 2019-03-04 12:48 | P.PN ---
Subjective Progress Note Date: 03/04/19 Principal diagnosis: Right unicortical proximal periprosthetic femur fracture Patient evaluated today at bedside, she is resting in her chair. She states the pain is slightly improved since yesterday. She remains nonweightbearing, toe- touch with transfers with walker. No other complaints at this time Objective - Vital Signs Vital signs: Vital Signs Temp 98.2 F 03/04/19 05:00 Pulse 71 03/04/19 05:00 Resp 18 03/04/19 05:00 BP 133/70 03/04/19 05:00 Pulse Ox 98 03/04/19 05:00 Intake & Output 03/03/19 03/04/19 03/04/19 18:59 06:59 18:59 Intake Total 480 825 240 Output Total 450 Balance 480 375 240 Intake: Oral 480 825 240 Output: Urine 450 Other: Voiding Method Bedpan Bedpan # Voids 6 1 # Bowel Movements 0 - Exam Right lower extremity: Physical exam is unchanged since previous evaluation - Labs CBC & Chem 7: 03/03/19 08:45 03/03/19 08:45 Labs: Microbiology - Last 24 Hours (Table) 03/02/19 11:55 Urine Culture - Preliminary Urine,Voided Gram Neg Bacilli Assessment and Plan Plan: Assessment: Right unicortical proximal periprosthetic femur fracture Stable right hip hemiarthroplasty Stable right knee arthroplasty Recent fall from standing Other medical comorbidities Plan: Continue nonweightbearing right lower extremity, toe-touch with walker when transferring Pain control via primary medical service GI and DVT prophylaxis via primary medical service Patient will likely need placement for subacute rehab Plan for follow-up with Dr. Hayward in 1 week Time with Patient: Less than 30
--- NOTE | 2019-03-04 15:54 | P.PN ---
Subjective Progress Note Date: 03/04/19 Principal diagnosis: This is a 78-year-old female with a past medical history of multiple medical problems who had a recent fall and is being admitted for right-sided hip and leg pain. Patient was staying at [facility] home. Awaiting orthopedic consult at this time. Patient denies any nausea, vomiting, or diarrhea at this time. Patient denies any chest pain, palpitations, or shortness of breath at this time. Patient does have severe right leg and hip pain. 03/04/2019 Patient is sitting up in the recliner next to the bed in no acute distress. Patient is still having a lot of pain in her right upper leg and states that the only thing that helps is Dilaudid. Patient states that she was told by orthopedic doctor today that there is a fracture of her right femur and that she needs to go to rehab. Patient is from [facility]. Per the orthopedic consult of the right lower extremity x-ray did show a unicortical fracture involving the proximal right femur. Patient is to remain non-weight bearing of right lower extremity. PT OT is working with the patient. Patient denies any chest pain, shortness of breath, palpitations at this time. Patient denies any nausea or vomiting and states that she has not had a bowel movement but was just given a stool softener today to help with that denies any abdominal discomfort at this time. Willl continue to monitor closely. Patient was approved for [facility] rehab and to be accepted on the of this month. The urine culture thus far shows gram-negative bacilli and patient is being treated with IV Rocephin daily. Objective - Vital Signs Vital signs: Vital Signs Temp 97.7 F 03/04/19 14:31 Pulse 64 03/04/19 14:31 Resp 18 03/04/19 14:31 BP 132/73 03/04/19 14:31 Pulse Ox 100 03/04/19 14:31 Intake & Output 03/03/19 03/04/19 03/04/19 18:59 06:59 18:59 Intake Total 480 825 480 Output Total 450 Balance 480 375 480 Intake: Oral 480 825 480 Output: Urine 450 Other: Voiding Method Bedpan Bedpan # Voids 6 1 # Bowel Movements 0 - Exam Gen: This is a 78-year-old female sitting up in recliner and appears in no acute distress. HEENT: Head is atraumatic, normocephalic. Pupils equal, round. Sclerae is anicteric. NECK: Supple. No JVD. No lymphadenopathy. No thyromegaly. LUNGS: Clear to auscultation. No wheezes or rhonchi. No intercostal retractions. HEART: Regular rate and rhythm. No murmur. ABDOMEN: Soft. Bowel sounds are present. No masses. No tenderness. EXTREMITIES: No pedal edema. No calf tenderness. Right leg and hip tenderness and unable to lift the leg off the bed NEUROLOGICAL: Patient is awake, alert and oriented x3. Cranial nerves 2 through 12 are grossly intact. - Labs CBC & Chem 7: 03/03/19 08:45 03/03/19 08:45 Labs: Microbiology - Last 24 Hours (Table) 03/02/19 11:55 Urine Culture - Preliminary Urine,Voided Gram Neg Bacilli Assessment and Plan Assessment: Acute urinary tract infection present on admission, with possible sepsis. Currently on IV antibiotics. urine cultures thus far show gram-negative bacilli. She was on IV Rocephin Recent fall and significant right hip pain, possibly contusion. Orthopedics is following. X-rays of the right lower extremity show a unicortical proximal periprosthetic femur fracture with a stable right hip hemiarthroplasty. Increased WBC. Resolved. Current WBC is 4.8 Gastroesophageal reflux disease Hyperlipidemia History of memory impairment History of cervical cancer History of psoriasis History of degenerative joint disease History of anxiety, bipolar depression Full code Patient's and discussion: Recommend continue current medications and continue symptomatic treatment. Continue IV antibiotics. Continue with the rest of medications and pain management. Closely monitor. Prognosis is guarded. Further recommendations to follow. Orthopedics is following. [facility] has accepted the patient for rehab. Possible discharge in the next 48 hours.
--- NOTE | 2019-03-04 19:23 | PN ---
PROGRESS NOTE DATE OF SERVICE: 03/04/2019. REASON FOR FOLLOWUP: UTI infection. INTERVAL HISTORY: The patient is currently afebrile. She has been complaining of pain in her right thigh area. No worsening. No chest pain. No shortness of breath or cough. No abdominal pain or any diarrhea. PHYSICAL EXAMINATION: Blood pressure is 132/73 with a pulse of 84, temperature is 97.7. She is 100% on room air. General description is an elderly female, lying in bed in no distress. Respiratory system: Unlabored breathing. Clear to auscultation anteriorly. Heart S1, S2. Regular rate and rhythm. Abdomen soft, no tenderness. Extremities: No edema of the feet. LABS: Hemoglobin 11.4, white count 4.8, BUN of 12, creatinine 0.49. Urine with gram negative. DIAGNOSTIC IMPRESSION AND PLAN: Patient admitted in the hospital with a fall with elevated white count, urinary symptoms, and gram-negative urinary tract infection responded to the Rocephin to continue while waiting for the culture to finalize. Continue supportive care. MMODL / IJN: [id number] /
[2019-03-04] MEDS: FLUoxetine HCL 20 MG CAP PO SCH (20:33)
[2019-03-04] MEDS: DONEPEZIL 10 MG TAB PO SCH (20:33)
[2019-03-04] MEDS: traZODone HCL 100 MG TAB PO SCH (20:33)
[2019-03-05] MEDS: HYDROmorphone 0.5 MG/0.5 ML SYRINGE IVP PRN ×5 (06:31→20:41)
[2019-03-05] MEDS: DOCUSATE 100 MG CAP PO SCH (07:44)
[2019-03-05] MEDS: PANTOPRAZOLE 40 MG TABLET PO SCH (07:44)
[2019-03-05] MEDS: MULTIVITAMINS, THERA 1 EACH TAB PO SCH (07:44)
[2019-03-05] MEDS: clonazePAM 1 MG TAB PO SCH ×3 (07:44→22:26)
[2019-03-05] MEDS: CHOLECALCIFEROL 1,000 UNIT TAB PO SCH (07:44)
[2019-03-05] MEDS: ASPIRIN 81 MG PO SCH (07:44)
[2019-03-05] MEDS: MEMANTINE 5 MG TAB PO SCH (07:44)
[2019-03-05] MEDS: CYANOCOBALAMIN 500 MCG TAB PO SCH (07:44)
[2019-03-05] MEDS: PRIMIDONE 50 MG TAB PO SCH ×2 (07:44→20:42)
[2019-03-05] MEDS: MELOXICAM 7.5 MG TAB PO SCH ×2 (07:44→20:43)
[2019-03-05] MEDS: NON-FORMULARY DRUG (Mirabegron [Myrbetriq] 50 MG) PO SCH (07:45)
[2019-03-05] MEDS: HEPARIN SODIUM,PORCINE 5,000 UNIT/ML 1 ML VIAL SQ SCH ×2 (07:45→20:42)
[2019-03-05] MEDS: NON-FORMULARY DRUG (Lubiprostone [Amitiza] 24 MCG) PO SCH ×2 (07:45→20:44)
[2019-03-05] MEDS: CHLORHEXIDINE GLUCONATE 15 ML CUP MUCOUS MEM SCH ×2 (07:45→20:43)
[2019-03-05] MEDS ORDERED: Alendronate Sodium [Fosamax] 70 MG PO SCH (12:52)
--- NOTE | 2019-03-05 16:01 | P.PN ---
Subjective Progress Note Date: 03/05/19 Principal diagnosis: This is a 78-year-old female with a past medical history of multiple medical problems who had a recent fall and is being admitted for right-sided hip and leg pain. Patient was staying at [facility] home. Awaiting orthopedic consult at this time. Patient denies any nausea, vomiting, or diarrhea at this time. Patient denies any chest pain, palpitations, or shortness of breath at this time. Patient does have severe right leg and hip pain. 03/04/2019 Patient is sitting up in the recliner next to the bed in no acute distress. Patient is still having a lot of pain in her right upper leg and states that the only thing that helps is Dilaudid. Patient states that she was told by orthopedic doctor today that there is a fracture of her right femur and that she needs to go to rehab. Patient is from [facility]. Per the orthopedic consult of the right lower extremity x-ray did show a unicortical fracture involving the proximal right femur. Patient is to remain non-weight bearing of right lower extremity. PT OT is working with the patient. Patient denies any chest pain, shortness of breath, palpitations at this time. Patient denies any nausea or vomiting and states that she has not had a bowel movement but was just given a stool softener today to help with that denies any abdominal discomfort at this time. Willl continue to monitor closely. Patient was approved for [facility] rehab and to be accepted on the of this month. The urine culture thus far shows gram-negative bacilli and patient is being treated with IV Rocephin daily. 03/05/2019 Patient is lying in bed resting but easily arousable. Patient appears to be in no acute distress. Patient is still having pain in her right leg. No new changes overnight. Patient is still expected to go to [facility] for rehab tomorrow. Patient denies any chest pain, shortness of breath, or palpitations at this time. Patient denies any nausea or vomiting at this time. Patient states that she did have a bowel movement yesterday. Patient denies any abdominal discomfort at this time. Patient is currently still on IV antibiotics for Rocephin. Infectious disease is following. Urine culture shows E. coli. Will continue to monitor closely. Objective - Vital Signs Vital signs: Vital Signs Temp 98.5 F 03/05/19 14:18 Pulse 58 L 03/05/19 14:18 Resp 18 03/05/19 14:18 BP 114/62 03/05/19 14:18 Pulse Ox 98 03/05/19 14:18 Intake & Output 03/04/19 03/05/19 03/05/19 18:59 06:59 18:59 Intake Total 720 300 Output Total 250 750 Balance 470 300 -750 Intake: Oral 720 300 Output: Urine 250 750 Other: Voiding Method Bedpan Bedpan # Voids 1 # Bowel Movements 1 0 - Exam Gen: This is a 78-year-old female sleeping in bed and appears in no acute distress. Patient is easily arousable. HEENT: Head is atraumatic, normocephalic. Pupils equal, round. Sclerae is anicteric. NECK: Supple. No JVD. No lymphadenopathy. No thyromegaly. LUNGS: Clear to auscultation. No wheezes or rhonchi. No intercostal retractions. HEART: Regular rate and rhythm. No murmur. ABDOMEN: Soft. Bowel sounds are present. No masses. No tenderness. EXTREMITIES: No pedal edema. No calf tenderness. Right leg and hip tenderness remains upon palpation NEUROLOGICAL: Patient is awake, alert and oriented x3. Cranial nerves 2 through 12 are grossly intact. - Labs CBC & Chem 7: 03/03/19 08:45 03/03/19 08:45 Labs: Microbiology - Last 24 Hours (Table) 03/02/19 11:55 Urine Culture - Final Urine,Voided Escherichia coli Assessment and Plan Assessment: Acute urinary tract infection present on admission, with possible sepsis. Currently on IV antibiotics. urine cultures originally showed gram-negative bacilli and has currently shown E. coli on final. She is on IV Rocephin. Infectious disease is following. Recent fall and significant right hip pain, possibly contusion. Orthopedics is following. X-rays of the right lower extremity show a unicortical proximal periprosthetic femur fracture with a stable right hip hemiarthroplasty. Patient is restricted to non-weight bearing of the right leg. Patient will be going to [facility] for rehab tomorrow. Increased WBC. Resolved. Last WBC is 4.8 Gastroesophageal reflux disease Hyperlipidemia History of memory impairment History of cervical cancer History of psoriasis History of degenerative joint disease History of anxiety, bipolar depression Full code Patient's and discussion: Recommend continue current medications and continue symptomatic treatment. Continue IV antibiotics. Infectious disease is following. Will await recommendations. Continue with the rest of medications and pain management. Closely monitor. Prognosis is guarded. Further recommendations to follow. Orthopedics is following. [facility] has accepted the patient for rehab. Probable discharge in the next 24 hours.
--- NOTE | 2019-03-05 16:58 | PN ---
PROGRESS NOTE DATE OF SERVICE: 03/05/2019 REASON FOR FOLLOWUP: Urinary tract infection. INTERVAL HISTORY: The patient is currently afebrile. The patient has been breathing comfortably. She has been complaining of pain to the right thigh area. No worsening, though. No nausea and no vomiting. No abdominal pain and no diarrhea. PHYSICAL EXAMINATION: Blood pressure is 114/62 with a pulse of 58, temperature 98.5. She is 98% on room air. General description is an elderly female lying in bed in no distress. RESPIRATORY SYSTEM: Unlabored breathing. Clear to auscultation anteriorly. HEART: S1, S2. Regular rate and rhythm. ABDOMEN: Soft. No tenderness. LABS: Urine has been finalized. That is sensitive to Rocephin. DIAGNOSTIC IMPRESSION AND PLAN: Patient with Escherichia coli urinary tract infection, currently on ceftriaxone. That will be transitioned to a short course of oral Ceftin to finish her course of therapy. Continue with supportive care. MMODL / IJN: [id number] /
[2019-03-05] MEDS: FLUoxetine HCL 20 MG CAP PO SCH (20:42)
[2019-03-05] MEDS: traZODone HCL 100 MG TAB PO SCH (20:42)
[2019-03-05] MEDS: DONEPEZIL 10 MG TAB PO SCH (20:43)
[2019-03-05 22:29] VITALS: RESP 20
[2019-03-06] MEDS: HYDROmorphone 0.5 MG/0.5 ML SYRINGE IVP PRN (05:02)
[2019-03-06 06:13] VITALS: BP 139/74; PULSE 65; TEMP 98.2
[2019-03-06] MEDS: NON-FORMULARY DRUG (Lubiprostone [Amitiza] 24 MCG) PO SCH (07:08)
[2019-03-06] MEDS: PRIMIDONE 50 MG TAB PO SCH (08:38)
[2019-03-06] MEDS: HYDROcodone/APAP 5-325MG 1 EACH TAB PO PRN ×2 (08:39→13:21)
[2019-03-06] MEDS: MELOXICAM 7.5 MG TAB PO SCH (08:39)
[2019-03-06] MEDS: MEMANTINE 5 MG TAB PO SCH (08:39)
[2019-03-06] MEDS: PANTOPRAZOLE 40 MG TABLET PO SCH (08:39)
[2019-03-06] MEDS: ASPIRIN 81 MG PO SCH (08:39)
[2019-03-06] MEDS: DOCUSATE 100 MG CAP PO SCH (08:39)
[2019-03-06] MEDS: CYANOCOBALAMIN 500 MCG TAB PO SCH (08:39)
[2019-03-06] MEDS: CHOLECALCIFEROL 1,000 UNIT TAB PO SCH (08:39)
[2019-03-06] MEDS: HEPARIN SODIUM,PORCINE 5,000 UNIT/ML 1 ML VIAL SQ SCH (08:40)
[2019-03-06] MEDS: MULTIVITAMINS, THERA 1 EACH TAB PO SCH (08:40)
[2019-03-06] MEDS: clonazePAM 1 MG TAB PO SCH (08:40)
[2019-03-06] MEDS: NON-FORMULARY DRUG (Mirabegron [Myrbetriq] 50 MG) PO SCH (08:40)
[2019-03-06] MEDS: CHLORHEXIDINE GLUCONATE 15 ML CUP MUCOUS MEM SCH (08:48)
--- NOTE | 2019-03-06 09:10 | P.DS ---
Providers Date of admission: 03/03/19 11:29 Expected date of discharge: 03/06/19 Attending physician: Princess Waterman Consults: 03/02/19 22:48 Consult Physician Routine Consulting Provider: Jean-Claude Santiago Consult Reason/Comments: sepsis Do you want consulting provider notified?: Yes 03/03/19 03:46 Consult Physician Routine Consulting Provider: Melchor Hayward Consult Reason/Comments: right hip pain post fall Do you want consulting provider notified?: Yes, Notify in am Primary care physician: Zane [facility] Course: Final diagnosis Acute urinary tract infection present on admission. Urine culture shows E.coli. Recent fall with significant right hip pain Unicortical proximal periprosthetic right femur fracture with a stable right hip hemiarthroplasty Increased WBC. resolved Gastroesophageal reflux disease Hyperlipidemia History of memory impairment History of cervical cancer History of psoriasis History of degenerative joint disease History of anxiety, bipolar depression Full code Discharge disposition Patient is being discharged in a stable condition with guarded prognosis to [facility] rehab facility. Discharge instructions display orthopedic restrictions. Patient will complete course of oral antibiotics for the urinary tract infection per infectious disease recommendations. History of present illness This is a 78-year-old female who was admitted for acute urinary tract infection along with recent fall and severe right hip pain as well as right leg pain. X- rays were reviewed showing a unicortical proximal periprosthetic right femur fracture. Orthopedics are following. Patient was treated with IV antibiotics with ceftriaxone for the UTI and will be going to rehab with a short course of oral antibiotics per infectious disease. Patient will be going to [facility] rehab facility for physical therapy and pain management. Patient is originally from [facility] home. Patient appears in no acute distress at this time and states that she is still having right leg pain and asking for her pain medications. Patient denies any shortness of breath, chest pain, or palpitations at this time. Patient denies any nausea, vomiting, or abdominal pain at this time. Patient denies any burning or pain with urination. On exam vital signs are stable. Blood pressure is 139/74, pulse is 65, respirations are 20, temp is 98.2F, oxygen saturation is 96% on room air. Cardio S1 and S2 are normal. Respiratory system is clear to auscultation. Abdomen is soft and nontender. Nervous system shows mild diffuse weakness and is currently nonweightbearing for the right lower extremity. Please refer to the medication reconciliation sheet for list of medications. Patient Condition at Discharge: Stable Plan - Discharge Summary Discharge Rx Participant: No New Discharge Prescriptions: New Cephalexin [Keflex] 500 mg PO Q12HR 10 Days cap Docusate [Colace] 100 mg PO DAILY cap HYDROcodone/APAP 5-325MG [[place] 5-325] 1 each PO Q6HR PRN #1 tab PRN Reason: Pain Acetaminophen Tab [Tylenol] 325 mg PO Q6HR PRN tab PRN Reason: Fever And/ Or Pain Continue FLUoxetine HCL [PROzac] 40 mg PO HS Multivitamin/Iron/Folic Acid [Centrum Complete Multivit Tab] 1 tab PO DAILY Cholecalciferol [Vitamin D3 (25 Mcg = 1000 Iu)] 1,000 unit PO DAILY Donepezil [Aricept] 10 mg PO HS Primidone [Mysoline] 50 mg PO QID Memantine [Namenda] 5 mg PO DAILY Alendronate Sodium [Fosamax] 70 mg PO WE clonazePAM [KlonoPIN] 2 mg PO HS@2300 clonazePAM [KlonoPIN] 1 mg PO BID@0700,1500 Cyanocobalamin (Vitamin B-12) [Vitamin B-12] 1,000 mcg PO DAILY Aspirin EC [Ecotrin Low Dose] 81 mg PO DAILY Calcium/Magnesium/Zinc [Vewupxk-Swuwcjmhu-Gosv Tablet] 1 tab PO DAILY Chlorhexidine Gluconate [Periogard] 15 ml MUCOUS MEM BID Lubiprostone [Amitiza] 24 mcg PO BID Meloxicam [Mobic] 7.5 mg PO BID Mirabegron [Myrbetriq] 50 mg PO DAILY traZODone HCL 200 mg PO HS Discharge Medication List FLUoxetine HCL [PROzac] 40 mg PO HS 12/14/14 [History] Multivitamin/Iron/Folic Acid [Centrum Complete Multivit Tab] 1 tab PO DAILY 12/14/14 [History] Cholecalciferol [Vitamin D3 (25 Mcg = 1000 Iu)] 1,000 unit PO DAILY 12/23/14 [History] Donepezil [Aricept] 10 mg PO HS 12/23/14 [History] Memantine [Namenda] 5 mg PO DAILY 01/24/16 [History] Primidone [Mysoline] 50 mg PO QID 01/24/16 [History] Alendronate Sodium [Fosamax] 70 mg PO WE 09/04/16 [History] clonazePAM [KlonoPIN] 1 mg PO BID@0700,1500 09/04/16 [History] clonazePAM [KlonoPIN] 2 mg PO HS@2300 09/04/16 [History] Cyanocobalamin (Vitamin B-12) [Vitamin B-12] 1,000 mcg PO DAILY 12/29/16 [History] Cephalexin [Keflex] 500 mg PO Q12HR 10 Days cap 03/02/19 [Rx] Aspirin EC [Ecotrin Low Dose] 81 mg PO DAILY 03/03/19 [History] Calcium/Magnesium/Zinc [Yrpndyh-Ctjquyfhl-Uckr Tablet] 1 tab PO DAILY 03/03/19 [History] Chlorhexidine Gluconate [Periogard] 15 ml MUCOUS MEM BID 03/03/19 [History] Lubiprostone [Amitiza] 24 mcg PO BID 03/03/19 [History] Meloxicam [Mobic] 7.5 mg PO BID 03/03/19 [History] Mirabegron [Myrbetriq] 50 mg PO DAILY 03/03/19 [History] traZODone HCL 200 mg PO HS 03/03/19 [History] Acetaminophen Tab [Tylenol] 325 mg PO Q6HR PRN tab 03/06/19 [Rx] Docusate [Colace] 100 mg PO DAILY cap 03/06/19 [Rx] HYDROcodone/APAP 5-325MG [[place] 5-325] 1 each PO Q6HR PRN #1 tab 03/06/19 [Rx] Follow up Appointment(s)/Referral(s): Zane Burirs DO [Primary Care Provider] - 1-2 days Melchor Hayward MD [STAFF PHYSICIAN] - 1 Week Activity/Diet/Wound Care/Special Instructions: Orthopedic discharge instructions: 1. Nonweightbearing right lower extremity, toe-touch weightbearing when transferring with walker 2. Upper body and left lower extremity physical therapy is okay 3. Plan for follow-up with Dr[facility] Activity as mentioned above continue current diet Continue antibiotics until completed Discharge Disposition: TRANSFER TO SNF/ECF
--- NOTE | 2019-03-06 13:01 | PN ---
PROGRESS NOTE DATE OF SERVICE: 03/06/2019 REASON FOR FOLLOWUP: E coli urinary tract infection. INTERVAL HISTORY: The patient is currently afebrile. Patient has been breathing comfortably. Denies having any chest pain nor any cough. No abdominal pain. Worsening urinary symptom. PHYSICAL EXAMINATION: Blood pressure 139/74 with a pulse of 65, temperature 98.2, she is 96% on room air. General description is an elderly female, lying in bed in no distress. RESPIRATORY SYSTEM: Unlabored breathing, clear to auscultation anteriorly. HEART: S1, S2. Regular rate and rhythm. ABDOMEN: Soft, no tenderness. LABS: Urine culture with E coli sensitive to cefazolin and Rocephin. DIAGNOSTIC IMPRESSION AND PLAN: Patient with Escherichia coli urinary tract infection, currently on Rocephin. Transition to a short course of oral Ceftin to finish a course of therapy. Continue supportive care. MMODL / IJN: [id number] /
--- NOTE | 2019-03-06 13:30 | CDI ---
Documentation Clarification Form Date: 03/06/2019 1:14:45 PM From: Mitra ChowMARAH, CCDS Admit Date: 03/03/2019 11:29:00 AM Patient Name: Kelsey Castillo Visit Number: [id number] Discharge Date: ATTENTION: The Clinical Documentation Specialists (CDI) and [facility] Coding Staff appreciate your assistance in clarifying documentation. Please respond to the clarification below the line at the bottom and electronically sign. The CDI & [facility] Coding staff will review the response and follow-up if needed. Please note: Queries are made part of the Legal Health Record. If you have any questions, please contact the author of this message via ITS. Dr. Donald Pang: Per the attending History & Physical and subsequent progress notes: "Acute urinary tract infection present on admission, with possible sepsis. 2. Fall and significant right hip pain, possibly contusion." History/Risk Factors: GERD, Hyperlipidemia, Memory Impairment, DJD, History of cervical cancer, incontinence, resident of [facility] home. Clinical Indicators: Presented to ER after fall at [facility] home & UTI, urine culture positive for E coli. WBC: 11.0 Lactic acid: no lab value VS on admission: T 98, P 62, R 18, BP 115/56, PO 99 ra Treatment: IM Ms, IV Ms, po Keflex, po [place] & Tylenol #3, IV fl 100, IV Rocephin, IV Dilaudid In your professional opinion, please clarify if these findings signify one of the following conditions, whether the condition is POA, and cause, if known: o Sepsis ruled out o Sepsis ruled in o Other, please specify o Unable to determine Present on Admission o Yes o No (Last Revision: November 2017) sepsis ruled out present on admission unable to determine MTDD
== END 2019-03-06 13:27 | DRG 689 ==
LOC: EC 07:54 → 4MS4W 15:31 → OBSVTOIN 03-03 11:29
PROVIDERS: ADMIT Internal Medicine; ATTEND Internal Medicine
DX: N39.0 Urinary tract infection, site not specified (principal); S72.91XA Unspecified fracture of right femur, initial encounter for closed fracture; M97.01XA Periprosthetic fracture around internal prosthetic right hip joint, initial encounter; E78.5 Hyperlipidemia, unspecified; K21.9 Gastro-esophageal reflux disease without esophagitis; M19.90 Unspecified osteoarthritis, unspecified site; L40.9 Psoriasis, unspecified; F41.9 Anxiety disorder, unspecified; F31.9 Bipolar disorder, unspecified; R32 Unspecified urinary incontinence; Z85.41 Personal history of malignant neoplasm of cervix uteri; Z87.81 Personal history of (healed) traumatic fracture; Z79.83 Long term (current) use of bisphosphonates; Z79.82 Long term (current) use of aspirin; Z79.1 Long term (current) use of non-steroidal anti-inflammatories (NSAID); Z79.899 Other long term (current) drug therapy; Z96.651 Presence of right artificial knee joint; Z96.643 Presence of artificial hip joint, bilateral; Z87.891 Personal history of nicotine dependence; Z98.51 Tubal ligation status; Z88.7 Allergy status to serum and vaccine; Z88.8 Allergy status to other drugs, medicaments and biological substances; Z82.49 Family history of ischemic heart disease and other diseases of the circulatory system; Z81.8 Family history of other mental and behavioral disorders; W19.XXXA Unspecified fall, initial encounter; B96.20 Unspecified Escherichia coli [E. coli] as the cause of diseases classified elsewhere
CPT/HCPCS: 36415; 71046; 73502; 80048; 80053; 81001; 85025; 87077; 87086; 87186; 93005; 96365; 96372; 99285

== ENCOUNTER 2019-03-18 12:46 | Inpatient (IN) | payer MEDICARE ==
[2019-03-17 10:52] VITALS: BMI 26.1
--- NOTE | 2019-03-17 11:11 | HP ---
HISTORY AND PHYSICAL CHIEF COMPLAINT: Right thigh and hip pain. HISTORY OF PRESENT ILLNESS: The patient is a 78-year-old retired female who presents after falling injuring her right hip on 03/02/2019. She is currently staying in an assisted living facility. She has difficult time with any weightbearing activities. She previously underwent right hip hemiarthroplasty for fracture many years ago. PAST MEDICAL HISTORY: Significant for arthritis, hypertension, depression, likely osteoporosis and mild dementia. PAST SURGICAL HISTORY: Significant for bilateral total knee arthroplasty, left hip hemiarthroplasty, converted to left total hip arthroplasty, right hip hemiarthroplasty, and tonsillectomy. CURRENT MEDICATIONS: 1. Aricept. 2. Prozac. 3. Klonopin. 4. Trazodone. 5. Alendronate. 6. Aspirin. 7. Omeprazole. 8. Ibuprofen. 9. Primidone. 10.[place]. ALLERGIES: She has sensitivity to ATIVAN, but however no allen drug allergies. FAMILY HISTORY: Significant for heart disease and dementia. SOCIAL HISTORY: Negative for current tobacco or alcohol use. REVIEW OF SYSTEMS: Sixteen-point review of systems otherwise reviewed and is noncontributory. PHYSICAL EXAMINATION: On examination, the patient is approximately 5 feet 6 inches, 145 pounds of mesomorphic habitus. HEENT exam is nonfocal. Neck is supple. She has pain with any attempted range of motion of the right hip. She is tender about the anterior thigh. She has mild swelling. She is nontender about the right knee and ankle. Her distal neurovascular exam appears intact in the right lower extremity. X-rays to include AP and lateral views of the right hip obtained in the office show a periprosthetic proximal femur fracture with a stable appearing femoral implant. IMPRESSION: Right periprosthetic proximal femur fracture. RECOMMENDATIONS: I talked to the patient and her son regarding her complex injury/problem. After thorough discussion, she opts to proceed with surgery. We will plan to proceed with open reduction and internal fixation of the right proximal periprosthetic femur fracture. We will institute DVT prophylaxis postoperatively. Risks and benefits were discussed at length in layman's terms. MMODL / IJN: [id number] /
[~2019-03-18 12:46] MED LIST changes: +ACETAMINOPHEN TAB 500 MG TAB PO ONE; +HYDROmorphone 0.5 MG/0.5 ML SYRINGE IVP PRN; -HYDROmorphone 1 MG/ML 1 ML SYRINGE IVP PRN; +MELOXICAM 7.5 MG TAB PO ONE; +MIDAZOLAM 2 MG/2 ML VIAL IV PRN; +Pre Op ABX Message 1 EACH MISC MISCELLANE ONE; +SCOPOLAMINE 1.5MG/72HR PATCH TRANSDERM ONE; +TRANEXAMIC ACID 1,000 MG in SODIUM CHLORIDE 0.9% 100 ML IVPB ONE; -ceFAZolin 1,000 MG in DEXTROSE/WATER 1 50ML.BAG IV ONE
[2019-03-18] MEDS: LACTATED RINGERS 1,000 ML IV SCH ×2 (13:55→19:32)
[2019-03-18] MEDS ORDERED: PROPOFOL 10 MG/ML 20 ML VIAL IV ONE (14:54)
[2019-03-18] MEDS ORDERED: diphenhydrAMINE 50 MG/ML 1 ML VIAL ONE (14:54)
[2019-03-18] MEDS ORDERED: fentaNYL (PF) 50 MCG/ML 2 ML AMP ONE (14:54)
[2019-03-18] MEDS ORDERED: SODIUM CHLORIDE 0.9% 100 ML BAG ONE (14:54)
[2019-03-18] MEDS ORDERED: TRANEXAMIC ACID 1,000 MG/10 ML VIAL ONE (14:54)
[2019-03-18] MEDS ORDERED: HEPARIN SODIUM,PORCINE 10,000 UNIT/ML 1 ML VIAL ONE (14:54)
[2019-03-18] MEDS ORDERED: SODIUM CHLORIDE 0.9% IRRIG 1,000 ML BTL IRRIGATION ONE (14:54)
[2019-03-18] MEDS ORDERED: MIDAZOLAM 2 MG/2 ML VIAL ONE (14:54)
[2019-03-18] MEDS ORDERED: ceFAZolin 3,000 MG in SODIUM CHLORIDE 0.9% IRRIGATIO 3,000 ML IRRIGATION ONE (15:38)
[2019-03-18] MEDS ORDERED: LACTATED RINGERS 1,000 ML IV ONE (16:46)
--- NOTE | 2019-03-18 17:11 | P.OP ---
Date of Procedure: 03/18/19 Preoperative Diagnosis: Right periprosthetic proximal femur fracture Postoperative Diagnosis: Same Procedure(s) Performed: Open reduction and internal fixation right periprosthetic proximal femur fracture Implants: Randy long trochanteric cable plate Anesthesia: spinal Surgeon: Melchor Hayward Ditch Rider #1: Girish [place] Estimated Blood Loss (ml): 200 Pathology: none sent Condition: stable Disposition: PACU Indications for Procedure: The patient's a 78-year-old female who presents after recently falling injuring her right hip. Previously she had undergone hemiarthroplasty for a femoral neck fracture. Upon evaluation she is noted to have a moderately displaced periprosthetic proximal femur fracture with what appeared to be a stable implant. He discussion of the risks and benefits of operative intervention was made with patient and her family. She opted to proceed with surgery. Operative options were discussed at this point we will plan to proceed with open reduction and internal fixation. Risks of surgery to include infection, neurovascular injury, development of blood clots, development nonunion/malunion, and possible need for subsequent procedures was discussed. Informed consent was obtained. Operative Findings: As below Description of Procedure: The patient was brought to the operating room, and and after placement of spinal anesthesia was placed supine on the fracture table. The fracture was reduced with longitudinal traction and internal rotation of the right lower extremity. This is verified on AP and lateral views of fluoroscopy. The right lower extremity was then prepped and draped in normal fashion. A 10 inch incision was then made along the lateral aspect of the right proximal femur. The skin was incised sharply. Subcutaneous tissues were divided sharply. Electrocautery was used for hemostasis. The fascia irma and gluteus chantal fascia was then opened. The vastus lateralis fascia was split along its posterior margin. The muscle fibers were bluntly dissected anteriorly. A long trochanteric cable plate was then placed with the aid of fluoroscopy. Proximally multiple cerclage cables were passed and tightened appropriately. These were then secured to the plate. Distally 3 cortical screws were placed in the appropriate length. Final fluoroscopic views to include AP and lateral showed adequate reduction of fracture and placement of the implant. The wires were clipped at the level the plate. The wound was irrigated copiously. The fascia irma and gluteus chantal fascia was closed with running 0 Vicryl suture. The subcutaneous tissues reapproximated interrupted 2-0 Vicryl sutures. The skin was reapproximated with margaret. A sterile dressing was applied. The patient was awoken from sedation and transferred to recovery room in fair condition. Blood loss was estimated 200 mL. She received approximately 70 mL of Cell Saver. No complications were incurred. Sponge and needle counts were correct in the case.
[2019-03-18] MEDS ORDERED: MAGNESIUM HYDROXIDE 2,400 MG/10 ML CUP PO PRN (17:12)
[2019-03-18] MEDS ORDERED: HYDROcodone/APAP 5-325MG 1 EACH TAB PO PRN (17:12)
[2019-03-18] MEDS ORDERED: NALOXONE 0.4 MG/ML 1 ML VIAL IV PRN (17:12)
[2019-03-18] MEDS ORDERED: ONDANSETRON 4 MG/2 ML VIAL IVP PRN (17:12)
[2019-03-18] MEDS: HYDROcodone/APAP 5-325MG 1 EACH TAB PO PRN (19:10)
[2019-03-18] MEDS ORDERED: ACETAMINOPHEN TAB 325 MG TAB PO PRN (19:20)
[2019-03-18] MEDS: HYDROmorphone 0.5 MG/0.5 ML SYRINGE IVP PRN ×2 (20:18→23:19)
[2019-03-18] MEDS: NON-FORMULARY DRUG (Lubiprostone [Amitiza] 24 MCG) PO SCH (21:45)
[2019-03-18] MEDS: DONEPEZIL 10 MG TAB PO SCH (21:48)
[2019-03-18] MEDS: FLUoxetine HCL 20 MG CAP PO SCH (21:48)
[2019-03-18] MEDS: traZODone HCL 100 MG TAB PO SCH (21:48)
[2019-03-18] MEDS: PRIMIDONE 50 MG TAB PO SCH (21:48)
[2019-03-18] MEDS: SENNOSIDES-DOCUSATE SODIUM 1 EACH TAB PO SCH (21:48)
[2019-03-18] MEDS: clonazePAM 1 MG TAB PO SCH (21:49)
--- NOTE | 2019-03-18 21:49 | P.CONS ---
History of Present Illness - Reason for Consult Consult date: 03/18/19 Medical management Requesting physician: Melchor Hayward - Chief Complaint Right femur pain - History of Present Illness History of presenting complaint: This is a very pleasant 78-year-old patient of Dr. Burris. Chronic stable medical conditions include GERD, hyperlipidemia, hypertension, some cognitive impairment, osteoarthritis, incontinence,. Patient is a resident of [facility]. Patient took a fall on March 02. Subsequently suffered a right femur fracture. This was a joint at already had arthroplasty. Pain was localized to the hip area. Worse with activity better with rest. He could not be managed conservatively. Denies any cardiac history. He shouldn't today has undergone right femur ORIF. Postoperative pain is present. No nausea no v omiting. Did tolerate some supper. No chest pain or shortness of breath. Review of systems: GEN.: None EYES: None HEENT: None NECK: None RESPIRATORY: None CARDIOVASCULAR: None GASTROINTESTINAL: None GENITOURINARY: None MUSCULOSKELETAL: Joint pains LYMPHATICS: None HEMATOLOGICAL: None PSYCHIATRY: Slightly forgetful NEUROLOGICAL: [Baseline uses a cane Social history: Lives at [facility]. No smoking. Alcohol rarely. Physical examination: VITAL SIGNS: Afebrile, 61, 18, 167/75, 98% on room air GENERAL: Average built, sitting up, not in distress. EYES: Pupils equal. Conjunctiva normal. HEENT: External appearance of nose and ears normal, oral cavity grossly normal. NECK: JVD not raised; masses not palpable. HEART: First and second heart sounds are normal; no edema. LUNGS: Respiratory rate normal; clear to auscultation. ABDOMEN: Soft, nontender, liver spleen not palpable, no masses palpable. PSYCH: Alert and oriented x3; mood and affect normal. NEUROLOGICAL: Cranial nerves grossly intact; no facial asymmetry, power and sensation grossly intact. LYMPHATICS: No lymph nodes palpable in the axilla and neck MUSCULOSKELETAL: Evidence of OA especially in the hands INVESTIGATIONS, reviewed in the clinical context: Blood work from March 17 shows a white count of 4.6 hemoglobin 11.6 From March 07 shows a potassium of 4.2 creatinine of 0.47 Assessment: -ORIF of right femur fracture that occurred on January 31 -GERD -Hyperlipidemia -Essential hypertension. -Mild cognitive impairment -Chronic urinary stress incontinence Plan: Home medications resumed. Pain medications are in place. Patient is on Lovenox for DVT prophylaxis. Also getting gentle hydration. Care was discussed with the patient. Questions were answered. Thank you Dr. De Leon Past Medical History Past Medical History: Cancer, GERD/Reflux, Hyperlipidemia, Hypertension, Memory Impairment, Osteoarthritis (OA), Skin Disorder Additional Past Medical History / Comment(s): cervical ca, INCONTINENCE, FRACTURE OF RIGHT ANKLE, psoriasis History of Any Multi-Drug Resistant Organisms: None Reported Past Surgical History: Adenoidectomy, Joint Replacement, Orthopedic Surgery, Tonsillectomy, Tubal Ligation Additional Past Surgical History / Comment(s): mateusz hip and right knee replacement , REVISION OF TOTAL LEFT HIP, R knee arthroscopy, part of cervix removed, EGD/colonoscopy. Past Anesthesia/Blood Transfusion Reactions: No Reported Reaction, Family History of Problems w/ Anesthesia Additional Past Anesthesia/Blood Transfusion Reaction / Comm: "father had problem w/spinal & was paralyzed per pt." Past Psychological History: Anxiety, Bipolar, Depression Additional Psychological History / Comment(s): LIVES AT [facility]. CURRENTLY AT [facility] Smoking Status: Former smoker Past Alcohol Use History: Rare Additional Past Alcohol Use History / Comment(s): started smoking in her 50's only smoked x 1 month then quit, occ glass of wine at holidays or if someone visits Past Drug Use History: None Reported - Past Family History Father Family Medical History: Hypertension Additional Family Medical History / Comment(s): open heart surgery, paralyzed by spinal Mother Family Medical History: Dementia Medications and Allergies Home Medications Medication Instructions Recorded Confirmed Type FLUoxetine HCL [PROzac] 40 mg PO HS 12/14/14 03/18/19 History Multivitamin/Iron/Folic Acid 1 tab PO DAILY 12/14/14 03/18/19 History [Centrum Complete Multivit Tab] Cholecalciferol [Vitamin D3 (25 1,000 unit PO DAILY 12/23/14 03/18/19 History Mcg = 1000 Iu)] Donepezil [Aricept] 10 mg PO HS 12/23/14 03/18/19 History Memantine [Namenda] 5 mg PO DAILY 01/24/16 03/18/19 History Primidone [Mysoline] 50 mg PO QID 01/24/16 03/18/19 History Alendronate Sodium [Fosamax] 70 mg PO WE 09/04/16 03/18/19 History Cyanocobalamin (Vitamin B-12) 1,000 mcg PO DAILY 12/29/16 03/18/19 History [Vitamin B-12] Aspirin EC [Ecotrin Low Dose] 81 mg PO DAILY 03/03/19 03/18/19 History Calcium/Magnesium/Zinc 1 tab PO DAILY 03/03/19 03/18/19 History [Xwyvbic-Nfkrzwion-Mxre Tablet] Chlorhexidine Gluconate [Periogard] 15 ml MUCOUS MEM BID 03/03/19 03/18/19 History Meloxicam [Mobic] 7.5 mg PO BID 03/03/19 03/18/19 History Mirabegron [Myrbetriq] 50 mg PO DAILY 03/03/19 03/18/19 History Acetaminophen Tab [Tylenol] 325 mg PO Q6HR PRN tab 03/06/19 03/18/19 Rx Docusate [Colace] 100 mg PO DAILY cap 03/06/19 03/18/19 Rx HYDROcodone/APAP 5-325MG [[place] 1 tab PO Q6HR PRN #3 tab 03/06/19 03/18/19 Rx 5-325] Lubiprostone [Amitiza] 24 mcg PO BID #2 capsule 03/06/19 03/18/19 Rx clonazePAM [KlonoPIN] 1 mg PO BID@0700,1500 #6 tablet 03/06/19 03/18/19 Rx clonazePAM [KlonoPIN] 2 mg PO HS@2300 #4 tablet 03/06/19 03/18/19 Rx traZODone HCL 200 mg PO HS #4 tablet 03/06/19 03/18/19 Rx Allergies Allergy/AdvReac Type Severity Reaction Status Date / Time lorazepam [From Ativan] Allergy Hallucinati Verified 03/18/19 17:00 ons pneumococcal vaccine Allergy Swelling Verified 03/18/19 17:00 Physical Exam Vitals: Vital Signs Temp Pulse Pulse Pulse Resp BP BP 03/18/19 20:50 61 18 167/75 03/18/19 20:36 66 18 153/62 03/18/19 20:20 69 18 157/75 03/18/19 20:05 60 18 128/74 03/18/19 19:50 60 18 138/78 03/18/19 19:35 55 L 18 151/75 03/18/19 19:21 53 L 18 157/65 03/18/19 19:05 54 L 18 153/88 03/18/19 18:50 53 L 18 156/80 03/18/19 18:35 97.7 F 52 L 18 145/71 03/18/19 18:00 57 L 16 127/60 03/18/19 17:45 47 L 16 159/62 03/18/19 17:30 62 16 123/56 03/18/19 17:15 60 16 129/59 03/18/19 17:03 97.6 F 56 L 15 149/66 03/18/19 13:30 97.5 F L 53 L 16 130/63 Pulse Ox 03/18/19 20:50 98 03/18/19 20:36 96 03/18/19 20:20 98 03/18/19 20:05 94 L 03/18/19 19:50 95 03/18/19 19:35 95 03/18/19 19:21 100 03/18/19 19:05 100 03/18/19 18:50 98 03/18/19 18:35 100 03/18/19 18:00 97 03/18/19 17:45 96 03/18/19 17:30 100 03/18/19 17:15 97 03/18/19 17:03 100 03/18/19 13:30 100 Intake and Output 03/18/19 03/18/19 03/18/19 06:59 14:59 22:59 Intake Total 1050 201 Output Total 500 Balance 1050 -299 Intake: IV 1050 201 Output: Urine 300 Estimated Blood Loss 200 Other: Voiding Method Indwelling Catheter Weight 67.585 kg
[2019-03-19] MEDS: HYDROmorphone 0.5 MG/0.5 ML SYRINGE IVP PRN ×4 (02:51→21:49)
[2019-03-19] MEDS: HYDROcodone/APAP 5-325MG 1 EACH TAB PO PRN ×3 (05:18→19:32)
[2019-03-19] MEDS: clonazePAM 1 MG TAB PO SCH ×3 (07:11→21:49)
[2019-03-19 08:22] LABS: Basophils % (A) 0 %; Eosinophils # (A) 0.1 k/uL (0-0.7); Eosinophils % (A) 1 %; HCT 33.7 % (34.0-46.0); HGB 11.2 gm/dL (11.4-16.0); Lymphocytes # (A) 1.1 k/uL (1.0-4.8); Lymphocytes % (A) 17 %; MCH 32.9 pg (25.0-35.0); MCHC 33.1 g/dL (31.0-37.0); MCV 99.1 fL (80.0-100.0); Mean Platelet Volume 7.1; Monocytes # (A) 0.5 k/uL (0-1.0); Monocytes % (A) 8 %; Neutrophils # (A) 4.8 k/uL (1.3-7.7); Neutrophils % (A) 73 %; Platelet Count 249 k/uL (150-450); RDW 12.4 % (11.5-15.5); WBC 6.6 k/uL (3.8-10.6)
--- NOTE | 2019-03-19 08:35 | XR ---
Fluoroscopy INDICATION: Pain FINDINGS: Fluoroscopy time: 1 minute 20 seconds. Images obtained: 4. IMPRESSIONS: 1. Documentation of fluoroscopy.
[2019-03-19] MEDS: ENOXAPARIN 40 MG/0.4 ML SYRINGE SQ SCH (09:33)
[2019-03-19] MEDS: MEMANTINE 5 MG TAB PO SCH (09:33)
[2019-03-19] MEDS: PRIMIDONE 50 MG TAB PO SCH ×4 (09:33→21:49)
[2019-03-19] MEDS: MULTIVITAMINS, THERA 1 EACH TAB PO SCH (09:33)
[2019-03-19] MEDS: DOCUSATE 100 MG CAP PO SCH (09:33)
[2019-03-19] MEDS: CYANOCOBALAMIN 500 MCG TAB PO SCH (09:34)
[2019-03-19] MEDS: NON-FORMULARY DRUG (Mirabegron [Myrbetriq] 50 MG) PO SCH (09:48)
[2019-03-19] MEDS: NON-FORMULARY DRUG (Lubiprostone [Amitiza] 24 MCG) PO SCH ×2 (09:48→22:07)
--- NOTE | 2019-03-19 12:55 | P.PN ---
Subjective Progress Note Date: 03/19/19 Principal diagnosis: Status post ORIF right periprosthetic femur fracture Patient evaluated at bedside today, she is resting comfortably. She does note some discomfort in the thigh and lateral aspect of the hip. She denies any shortness of breath or chest pain. She denies any paresthesias of the lower extremity. Objective - Vital Signs Vital signs: Vital Signs Temp 98.1 F 03/19/19 07:00 Pulse 63 03/19/19 07:00 Resp 15 03/19/19 07:00 BP 142/74 03/19/19 07:00 Pulse Ox 96 03/19/19 07:00 Intake & Output 03/18/19 03/19/19 03/19/19 18:59 06:59 18:59 Intake Total 1251 140 236 Output Total 500 1000 Balance 751 -860 236 Weight 67.585 kg Intake: IV 1251 Intake, IV Titration 140 Amount Lactated Ringers 1,000 ml 140 @ 40 mls/hr IV .Q24H TITO Rx#:[id number] Oral 236 Output: Urine 300 1000 Estimated Blood Loss 200 Other: Voiding Method Indwelling Catheter - Exam Right lower extremity: Incision is clean, dry, and intact. The margaret is in good condition. There is minimal soft tissue swelling and ecchymosis surrounding the medial and lateral aspects of the incision. Calf is soft, no tenderness with palpation. Plantar flexion, dorsiflexion, EHL, FHL are intact. Sensory exam to light touch throughout the extremity is intact, dorsal pedis pulses 2+. - Labs CBC & Chem 7: 03/19/19 06:57 Labs: Abnormal Lab Results - Last 24 Hours (Table) 03/19/19 Range/Units 06:57 RBC 3.40 L (3.80-5.40) m/uL Hgb 11.2 L (11.4-16.0) gm/dL Hct 33.7 L (34.0-46.0) % Assessment and Plan Plan: Assessment: Postoperative day #1 status post ORIF right periprosthetic femur fracture Plan: Pain control, continue current medication GI and DVT prophylaxis, continue current medication Continue toe-touch weightbearing with walker, physical therapy evaluation Daily dressing changes/ice the Medical recommendations Discharge planning: Plan for discharge back to rehab the next few days Time with Patient: Less than 30
[2019-03-19] MEDS: LACTATED RINGERS 1,000 ML IV SCH (18:10)
[2019-03-19] MEDS: SENNOSIDES-DOCUSATE SODIUM 1 EACH TAB PO SCH (21:49)
[2019-03-19] MEDS: DONEPEZIL 10 MG TAB PO SCH (21:49)
[2019-03-19] MEDS: FLUoxetine HCL 20 MG CAP PO SCH (21:49)
[2019-03-19] MEDS: traZODone HCL 100 MG TAB PO SCH (21:49)
--- NOTE | 2019-03-20 00:03 | P.PN ---
Progress Note - Text Progress Note Date: 03/19/19 - Chief Complaint Right femur pain Interval history: This is a very pleasant 78-year-old patient of Dr. Burris. Chronic stable medical conditions include GERD, hyperlipidemia, hypertension, some cognitive impairment, osteoarthritis, incontinence,. Patient is a resident of [facility]. Patient took a fall on March 02. Subsequently suffered a right femur fracture. This was a joint at already had arthroplasty. Pain was local ized to the hip area. Worse with activity better with rest. He could not be managed conservatively. Denies any cardiac history. Status post undergone right femur ORIF. Today-laying bed. Did work with therapy. Pain is operative site. No nausea vomiting. Did tolerate some diet. Review of systems: Was done for constitutional, cardiovascular, GI, pulmonary. relevant finding as above Active Medications Acetaminophen (Tylenol Tab) 325 mg PO Q6HR PRN PRN Reason: Fever and/ or Pain Hydrocodone Bitart/Acetaminophen ([place] 5-325) 1 each PO Q6HR PRN PRN Reason: Pain Scale 1 to 5 Hydrocodone Bitart/Acetaminophen ([place] 5-325) 2 each PO Q6HR PRN PRN Reason: Pain Scale 6 to 10 Last Admin: 03/19/19 19:32 Dose: 2 each Documented by: Clonazepam (Klonopin) 1 mg PO BID@0700,1500 [facility] Last Admin: 03/19/19 14:14 Dose: 1 mg Documented by: Clonazepam (Klonopin) 2 mg PO HS@2300 [facility] Last Admin: 03/19/19 21:49 Dose: 2 mg Documented by: Cyanocobalamin (Vitamin B-12) 1,000 mcg PO DAILY [facility] Last Admin: 03/19/19 09:34 Dose: 1,000 mcg Documented by: Docusate Sodium (Colace) 100 mg PO DAILY [facility] Last Admin: 03/19/19 09:33 Dose: 100 mg Documented by: Donepezil HCl (Aricept) 10 mg PO [facility] Last Admin: 03/19/19 21:49 Dose: 10 mg Documented by: Enoxaparin Sodium (Lovenox) 40 mg SQ DAILY [facility] Last Admin: 03/19/19 09:33 Dose: 40 mg Documented by: Fluoxetine HCl (Prozac) 40 mg PO [facility] Last Admin: 03/19/19 21:49 Dose: 40 mg Documented by: Hydromorphone HCl (Dilaudid) 0.25 mg IVP Q3HR PRN PRN Reason: Pain Scale 1 to 3 Last Admin: 03/19/19 21:49 Dose: 0.25 mg Documented by: Lactated Ringer's (Lactated Ringers) 1,000 mls @ 40 mls/hr IV .Q24H [facility] Last Admin: 03/19/19 18:10 Dose: Not Given Documented by: Lidocaine HCl (.Xylocaine 1% Inj (10mg/Ml) For Iv Start) 0.1 ml INTRADERMA PER PROTOCOL PRN PRN Reason: IV Start Last Admin: 03/18/19 13:55 Dose: 0.1 ml Documented by: Magnesium Hydroxide (Milk Of Magnesia) 2,400 mg PO DAILY PRN PRN Reason: Constipation Memantine (Namenda) 5 mg PO DAILY [facility] Last Admin: 03/19/19 09:33 Dose: 5 mg Documented by: Multivitamins (Theragran) 1 each PO DAILY [facility] Last Admin: 03/19/19 09:33 Dose: 1 each Documented by: Naloxone HCl (Narcan) 0.2 mg IV Q2M PRN PRN Reason: Opioid Reversal Non-Formulary Medication (Lubiprostone [Amitiza]) 24 mcg PO BID [facility] Last Admin: 03/19/19 22:07 Dose: Not Given Documented by: Non-Formulary Medication (Mirabegron [Myrbetriq]) 50 mg PO DAILY [facility] Last Admin: 03/19/19 09:48 Dose: Not Given Documented by: Ondansetron HCl (Zofran) 4 mg IVP Q24HR PRN PRN Reason: Nausea And Vomiting Last Admin: 03/19/19 09:32 Dose: 4 mg Documented by: Primidone (Mysoline) 50 mg PO QID [facility] Last Admin: 03/19/19 21:49 Dose: 50 mg Documented by: Senna/Docusate Sodium (Senokot-S) 2 each PO [facility] Last Admin: 03/19/19 21:49 Dose: 2 each Documented by: Trazodone HCl (Desyrel) 200 mg PO [facility] Last Admin: 03/19/19 21:49 Dose: 200 mg Documented by: Physical examination: VITAL SIGNS: 98.1, 60, 15, 1 42 x 74, 96% room air GENERAL: Laying in bed, comfortable EYES: Pupils equal. Conjunctiva normal. HEENT: External appearance of nose and ears normal, oral cavity grossly normal. NECK: JVD not raised; masses not palpable. HEART: First and second heart sounds are normal; no edema. LUNGS: Respiratory rate normal; clear to auscultation. ABDOMEN: Soft, nontender, liver spleen not palpable, no masses palpable. PSYCH: Alert and oriented x3; mood and affect normal. MUSCULOSKELETAL: Evidence of OA especially in the hands INVESTIGATIONS, reviewed in the clinical context: Hemoglobin 11.2 Previous labs Blood work from March 17 shows a white count of 4.6 hemoglobin 11.6 From March 07 shows a potassium of 4.2 creatinine of 0.47 Assessment: -ORIF of right femur fracture that occurred on January 31 -GERD -Hyperlipidemia -Essential hypertension. -Mild cognitive impairment -Chronic urinary stress incontinence -Normocytic anemia cause unknown, for further workup as an outpatient Plan: Patient stable. Continue current medication. Care was discussed. Thank you Dr. De Leon
[2019-03-20] MEDS: HYDROmorphone 0.5 MG/0.5 ML SYRINGE IVP PRN ×2 (02:54→11:44)
[2019-03-20] MEDS: HYDROcodone/APAP 5-325MG 1 EACH TAB PO PRN ×3 (03:43→14:31)
[2019-03-20] MEDS: clonazePAM 1 MG TAB PO SCH ×2 (07:30→14:32)
[2019-03-20 08:06] LABS: Basophils % (A) 0 %; Eosinophils # (A) 0.1 k/uL (0-0.7); Eosinophils % (A) 2 %; HCT 34.2 % (34.0-46.0); HGB 11.2 gm/dL (11.4-16.0); Lymphocytes # (A) 1.2 k/uL (1.0-4.8); Lymphocytes % (A) 17 %; MCH 32.7 pg (25.0-35.0); MCHC 32.7 g/dL (31.0-37.0); MCV 99.9 fL (80.0-100.0); Mean Platelet Volume 7.1; Monocytes # (A) 0.4 k/uL (0-1.0); Monocytes % (A) 5 %; Neutrophils # (A) 5.2 k/uL (1.3-7.7); Neutrophils % (A) 74 %; Platelet Count 225 k/uL (150-450); RBC 3.42 m/uL (3.80-5.40); RDW 12.6 % (11.5-15.5)
[2019-03-20] MEDS: CYANOCOBALAMIN 500 MCG TAB PO SCH (08:42)
[2019-03-20] MEDS: MULTIVITAMINS, THERA 1 EACH TAB PO SCH (08:42)
[2019-03-20] MEDS: PRIMIDONE 50 MG TAB PO SCH ×4 (08:42→20:49)
[2019-03-20] MEDS: MEMANTINE 5 MG TAB PO SCH (08:42)
[2019-03-20] MEDS: DOCUSATE 100 MG CAP PO SCH (08:42)
[2019-03-20] MEDS: ENOXAPARIN 40 MG/0.4 ML SYRINGE SQ SCH (08:42)
[2019-03-20] MEDS: NON-FORMULARY DRUG (Lubiprostone [Amitiza] 24 MCG) PO SCH ×2 (08:43→20:46)
[2019-03-20] MEDS: NON-FORMULARY DRUG (Mirabegron [Myrbetriq] 50 MG) PO SCH (08:43)
[2019-03-20] MEDS: LACTATED RINGERS 1,000 ML IV SCH (17:02)
[2019-03-20] MEDS: DONEPEZIL 10 MG TAB PO SCH (20:49)
[2019-03-20] MEDS: FLUoxetine HCL 20 MG CAP PO SCH (20:49)
[2019-03-20] MEDS: traZODone HCL 100 MG TAB PO SCH (20:49)
[2019-03-20] MEDS: SENNOSIDES-DOCUSATE SODIUM 1 EACH TAB PO SCH (20:49)
--- NOTE | 2019-03-20 21:40 | P.PN ---
Progress Note - Text Progress Note Date: 03/20/19 - Chief Complaint Right femur pain Interval history: This is a very pleasant 78-year-old patient of Dr. Burris. Chronic stable medical conditions include GERD, hyperlipidemia, hypertension, some cognitive impairment, osteoarthritis, incontinence,. Patient is a resident of [facility]. Patient took a fall on March 02. Subsequently suffered a right femur fracture. This was a joint at already had arthroplasty. Pain was local ized to the hip area. Worse with activity better with rest. He could not be managed conservatively. Denies any cardiac history. Status post undergone right femur ORIF. Today-l some pain in the operative site. Did work with therapy. No nausea vomiting. Did tolerate her diet. Review of systems: Was done for constitutional, cardiovascular, GI, pulmonary. relevant finding as above Active Medications Acetaminophen (Tylenol Tab) 325 mg PO Q6HR PRN PRN Reason: Fever and/ or Pain Hydrocodone Bitart/Acetaminophen ([place] 5-325) 1 each PO Q6HR PRN PRN Reason: Pain Scale 1 to 5 Hydrocodone Bitart/Acetaminophen ([place] 5-325) 2 each PO Q6HR PRN PRN Reason: Pain Scale 6 to 10 Last Admin: 03/20/19 14:31 Dose: 2 each Documented by: Clonazepam (Klonopin) 1 mg PO BID@0700,1500 [facility] Last Admin: 03/20/19 14:32 Dose: 1 mg Documented by: Clonazepam (Klonopin) 2 mg PO HS@2300 [facility] Last Admin: 03/19/19 21:49 Dose: 2 mg Documented by: Cyanocobalamin (Vitamin B-12) 1,000 mcg PO DAILY [facility] Last Admin: 03/20/19 08:42 Dose: 1,000 mcg Documented by: Docusate Sodium (Colace) 100 mg PO DAILY [facility] Last Admin: 03/20/19 08:42 Dose: 100 mg Documented by: Donepezil HCl (Aricept) 10 mg PO [facility] Last Admin: 03/20/19 20:49 Dose: 10 mg Documented by: Enoxaparin Sodium (Lovenox) 40 mg SQ DAILY [facility] Last Admin: 03/20/19 08:42 Dose: 40 mg Documented by: Fluoxetine HCl (Prozac) 40 mg PO [facility] Last Admin: 03/20/19 20:49 Dose: 40 mg Documented by: Hydromorphone HCl (Dilaudid) 0.25 mg IVP Q3HR PRN PRN Reason: Pain Scale 1 to 3 Last Admin: 03/20/19 11:44 Dose: 0.25 mg Documented by: Lactated Ringer's (Lactated Ringers) 1,000 mls @ 40 mls/hr IV .Q24H [facility] Last Admin: 03/20/19 17:02 Dose: Not Given Documented by: Lidocaine HCl (.Xylocaine 1% Inj (10mg/Ml) For Iv Start) 0.1 ml INTRADERMA PER PROTOCOL PRN PRN Reason: IV Start Last Admin: 03/18/19 13:55 Dose: 0.1 ml Documented by: Magnesium Hydroxide (Milk Of Magnesia) 2,400 mg PO DAILY PRN PRN Reason: Constipation Memantine (Namenda) 5 mg PO DAILY [facility] Last Admin: 03/20/19 08:42 Dose: 5 mg Documented by: Multivitamins (Theragran) 1 each PO DAILY [facility] Last Admin: 03/20/19 08:42 Dose: 1 each Documented by: Naloxone HCl (Narcan) 0.2 mg IV Q2M PRN PRN Reason: Opioid Reversal Non-Formulary Medication (Lubiprostone [Amitiza]) 24 mcg PO BID [facility] Last Admin: 03/20/19 20:46 Dose: Not Given Documented by: Non-Formulary Medication (Mirabegron [Myrbetriq]) 50 mg PO DAILY [facility] Last Admin: 03/20/19 08:43 Dose: Not Given Documented by: Ondansetron HCl (Zofran) 4 mg IVP Q24HR PRN PRN Reason: Nausea And Vomiting Last Admin: 03/19/19 09:32 Dose: 4 mg Documented by: Primidone (Mysoline) 50 mg PO QID [facility] Last Admin: 03/20/19 20:49 Dose: 50 mg Documented by: Senna/Docusate Sodium (Senokot-S) 2 each PO [facility] Last Admin: 03/20/19 20:49 Dose: 2 each Documented by: Trazodone HCl (Desyrel) 200 mg PO [facility] Last Admin: 03/20/19 20:49 Dose: 200 mg Documented by: Physical examination: VITAL SIGNS: 98.4, 66, 16, 104/68, 95% room air GENERAL: Laying in bed, comfortable EYES: Pupils equal. Conjunctiva normal. HEENT: External appearance of nose and ears normal, oral cavity grossly normal. NECK: JVD not raised; masses not palpable. HEART: First and second heart sounds are normal; no edema. LUNGS: Respiratory rate normal; clear to auscultation. ABDOMEN: Soft, nontender, liver spleen not palpable, no masses palpable. PSYCH: Alert and oriented x3; mood and affect normal. MUSCULOSKELETAL: Evidence of OA especially in the hands INVESTIGATIONS, reviewed in the clinical context: Hemoglobin 11.2 Previous labs Blood work from March 17 shows a white count of 4.6 hemoglobin 11.6 From March 07 shows a potassium of 4.2 creatinine of 0.47 Assessment: -ORIF of right femur fracture that occurred on January 31 -GERD -Hyperlipidemia -Essential hypertension. -Mild cognitive impairment -Chronic urinary stress incontinence -Normocytic anemia cause unknown, for further workup as an outpatient Plan: Patient is stable. Doing well. Continue current medication treatment plan Thank you Dr. De Leon
[2019-03-21] MEDS: clonazePAM 1 MG TAB PO SCH ×3 (00:17→16:11)
[2019-03-21] MEDS: HYDROcodone/APAP 5-325MG 1 EACH TAB PO PRN ×2 (00:17→08:32)
[2019-03-21 08:05] VITALS: BP 126/65; PULSE 68; RESP 15; TEMP 98.3
--- NOTE | 2019-03-21 08:06 | P.PN ---
Subjective Progress Note Date: 03/21/19 Principal diagnosis: Status post ORIF right periprosthetic femur fracture Patient evaluated at bedside today, she is resting comfortably. She denies any shortness of breath or chest pain. She denies any paresthesias of the lower extremity. Objective - Vital Signs Vital signs: Vital Signs Temp 98.3 F 03/21/19 07:00 Pulse 68 03/21/19 07:00 Resp 15 03/21/19 07:00 BP 126/65 03/21/19 07:00 Pulse Ox 98 03/21/19 07:00 Intake & Output 03/20/19 03/21/19 03/21/19 18:59 06:59 18:59 Intake Total 1254 Output Total 400 1600 Balance 854 -1600 Intake: Intake, IV Titration 160 Amount Lactated Ringers 1,000 ml 160 @ 40 mls/hr IV .Q24H [facility] Rx#:[id number] Oral 1094 Output: Urine 400 1600 Uretheral ([place]) 400 Other: Voiding Method Indwelling Catheter Bedpan # Voids 2 - Exam Right lower extremity: Incision is clean, dry, and intact. The margaret is in good condition. There is minimal soft tissue swelling and ecchymosis surrounding the medial and lateral aspects of the incision. Calf is soft, no tenderness with palpation. Plantar flexion, dorsiflexion, EHL, FHL are intact. Sensory exam to light touch throughout the extremity is intact, dorsal pedis pulses 2+. - Labs CBC & Chem 7: 03/20/19 07:49 Labs: Abnormal Lab Results - Last 24 Hours (Table) 03/20/19 Range/Units 07:49 RBC 3.42 L (3.80-5.40) m/uL Hgb 11.2 L (11.4-16.0) gm/dL Assessment and Plan Plan: Assessment: Postoperative day #3 status post ORIF right periprosthetic femur fracture Plan: Pain control, plan for discharge on [place] 5 mg/325 mg GI and DVT prophylaxis, heparin 5000 units q12 hr Continue toe-touch weightbearing with walker, physical therapy evaluation Daily dressing changes/ice the Medical recommendations Discharge planning: Plan for discharge back to rehab today Time with Patient: Less than 30
--- NOTE | 2019-03-21 08:11 | P.DS ---
Providers Date of admission: 03/18/19 12:46 Expected date of discharge: 03/21/19 Attending physician: Melchor Hayward Consults: 03/18/19 17:12 Consult Physician Routine Consulting Provider: Ezio Wynne Consult Reason/Comments: medical mangement Do you want consulting provider notified?: Yes Primary care physician: [facility] Course: Date of admission: 03/18/2019 Date of discharge: 03/21/2019 Admission diagnosis: Status post ORIF right proximal periprosthetic femur fracture Discharge diagnosis: Same Attending physician: Dr. Hayward Surgical procedures: ORIF right proximal periprosthetic femur fracture Brief history: Patient is a 78-year-old female with a previous right hip hemiarthroplasty sustained a fall in late February. It was determined she had a uni cortical right periprosthetic femur fracture. At her first outpatient follow- up, fracture had displaced further. Treatment options were discussed, she was boarded for a open reduction internal fixation procedure of the right proximal femur. She was scheduled for surgery on 03/18/2019. Hospital course: Details of patient's surgery can be found in operative report. Patient tolerated the procedure well and was subsequently transported to orthopedic floor. Patient's orthopeidc and medical care was provided daily. Patient had daily laboratory tests performed for evaluation of overall blood co unts. Patient had daily physical therapy to include strengthening range of motion as well as education with walker ambulation. Patient was treated with Lovenox for their postoperative DVT prophylaxis during their inpatient stay. Patient was noted to have a relatively uneventful postoperative course. Patient reported satisfactory pain control with oral pain medications by postoperative day 0. Patient showed satisfactory progress with physical therapy. Patient moved steadily through the program and had no difficulty meeting the goals by postoperative day 3. Given patient's otherwise satisfactory course and having met physical therapy goals, plan is to discharge patient rehab on postoperative day 3. Discharge condition/disposition: Patient will be discharged to rehab in stable condition. Discharge medications: Instructions are given on resumption of patient's normal daily medications per primary care recommendation, in addition patient will be prescribed [place] 5 mg/325 mg, heparin 5000 units. Discharge instructions: 1. Wound care and infection precautions, keep incision dry and covered while showering, no lotions, creams, moisturizers. No soaking, tubs, pools, hottubs. Do not scrub over the incision. 2. Toe-touch weightbearing with walker / cane until follow-up. 3. Ice and elevate when necessary. Do not exceed 20 minutes per hour with ice pack. 4. Utilize compression sleeve until seen at first follow up appointment. 5. Visiting nursing care. 6. Home physical therapy. 7. Pain meds and anticoagulants per prescription. 8. Pain medication has potential to cause constipation. Increase oral fluid and fiber intake. Contact primary care provider if you have not had a bowel movement within 48 hours after discharge 9. No anti-inflammatory medication until discussed at first post operative visit, this including Motrin, Aleve, Mobic, Diclofenac. 10. Follow up in office at 2 weeks postop with Rich Colorado PA-C 11. Follow up with your primary care doctor 7-10 days after discharge. 12. Contact [facility] with any questions, . Procedures: Open reduction internal fixation right periprosthetic femur fracture Patient Condition at Discharge: Good Plan - Discharge Summary Discharge Rx Participant: No New Discharge Prescriptions: New Heparin Sodium,Porcine [Heparin Sodium] 5,000 unit SQ Q12HR #60 vial Hydrocodone/Acetaminophen [[place] 5-325] 1 - 2 each PO Q6HR PRN #56 tab PRN Reason: Pain No Action FLUoxetine HCL [PROzac] 40 mg PO HS Multivitamin/Iron/Folic Acid [Centrum Complete Multivit Tab] 1 tab PO DAILY Cholecalciferol [Vitamin D3 (25 Mcg = 1000 Iu)] 1,000 unit PO DAILY Donepezil [Aricept] 10 mg PO HS Primidone [Mysoline] 50 mg PO QID Memantine [Namenda] 5 mg PO DAILY Alendronate Sodium [Fosamax] 70 mg PO WE Cyanocobalamin (Vitamin B-12) [Vitamin B-12] 1,000 mcg PO DAILY Aspirin EC [Ecotrin Low Dose] 81 mg PO DAILY Calcium/Magnesium/Zinc [Belqryy-Jszodjcbo-Xubz Tablet] 1 tab PO DAILY Chlorhexidine Gluconate [Periogard] 15 ml MUCOUS MEM BID Meloxicam [Mobic] 7.5 mg PO BID Mirabegron [Myrbetriq] 50 mg PO DAILY Docusate [Colace] 100 mg PO DAILY cap Acetaminophen Tab [Tylenol] 325 mg PO Q6HR PRN tab PRN Reason: Fever And/ Or Pain Lubiprostone [Amitiza] 24 mcg PO BID #2 capsule HYDROcodone/APAP 5-325MG [[place] 5-325] 1 tab PO Q6HR PRN #3 tab PRN Reason: Pain clonazePAM [KlonoPIN] 1 mg PO BID@0700,1500 #6 tablet clonazePAM [KlonoPIN] 2 mg PO HS@2300 #4 tablet traZODone HCL 200 mg PO HS #4 tablet Discharge Medication List FLUoxetine HCL [PROzac] 40 mg PO HS 12/14/14 [History] Multivitamin/Iron/Folic Acid [Centrum Complete Multivit Tab] 1 tab PO DAILY 12/14/14 [History] Cholecalciferol [Vitamin D3 (25 Mcg = 1000 Iu)] 1,000 unit PO DAILY 12/23/14 [History] Donepezil [Aricept] 10 mg PO HS 12/23/14 [History] Memantine [Namenda] 5 mg PO DAILY 01/24/16 [History] Primidone [Mysoline] 50 mg PO QID 01/24/16 [History] Alendronate Sodium [Fosamax] 70 mg PO WE 09/04/16 [History] Cyanocobalamin (Vitamin B-12) [Vitamin B-12] 1,000 mcg PO DAILY 12/29/16 [History] Aspirin EC [Ecotrin Low Dose] 81 mg PO DAILY 03/03/19 [History] Calcium/Magnesium/Zinc [Tzwczvs-Ghlpgoasc-Wcik Tablet] 1 tab PO DAILY 03/03/19 [History] Chlorhexidine Gluconate [Periogard] 15 ml MUCOUS MEM BID 03/03/19 [History] Meloxicam [Mobic] 7.5 mg PO BID 03/03/19 [History] Mirabegron [Myrbetriq] 50 mg PO DAILY 03/03/19 [History] Acetaminophen Tab [Tylenol] 325 mg PO Q6HR PRN tab 03/06/19 [Rx] Docusate [Colace] 100 mg PO DAILY cap 03/06/19 [Rx] HYDROcodone/APAP 5-325MG [[place] 5-325] 1 tab PO Q6HR PRN #3 tab 03/06/19 [Rx] Lubiprostone [Amitiza] 24 mcg PO BID #2 capsule 03/06/19 [Rx] clonazePAM [KlonoPIN] 1 mg PO BID@0700,1500 #6 tablet 03/06/19 [Rx] clonazePAM [KlonoPIN] 2 mg PO HS@2300 #4 tablet 03/06/19 [Rx] traZODone HCL 200 mg PO HS #4 tablet 03/06/19 [Rx] Heparin Sodium,Porcine [Heparin Sodium] 5,000 unit SQ Q12HR #60 vial 03/21/19 [Rx] Hydrocodone/Acetaminophen [[place] 5-325] 1 - 2 each PO Q6HR PRN #56 tab 03/21/19 [Rx] Follow up Appointment(s)/Referral(s): Girish Colorado PAC [[facility]] - 2 Weeks Activity/Diet/Wound Care/Special Instructions: Orthopedic Discharge Instructions: 1. Wound care and infection precautions, keep incision dry and covered while showering, no lotions, creams, moisturizers. No soaking, pools, hot tubs. Do not scrub over incision. 2. Toe-touch weightbearing with walker / cane until follow-up. 3. Ice and elevate when necessary. Do not exceed 20 minutes per hour with ice pack. 4. Utilize compression sleeve until seen at first follow up appointment. 5. Pain meds and anticoagulants per prescription. 6. Pain medication has potential to cause constipation. Increase oral fluid and fiber intake. Contact primary care provider if you have not had a bowel movement within 48 hours after discharge. 7. No anti-inflammatory medication until discussed at first post operative visit, this including Motrin, Aleve, Mobic, Diclofenac. 8. Follow up in office at 2 weeks postop with Rich Colorado PA-C 9. Follow up with your primary care doctor 7-10 days after discharge. 10. Contact [facility] with any questions, . Discharge Disposition: TRANSFER TO SNF/ECF
[2019-03-21] MEDS: NON-FORMULARY DRUG (Lubiprostone [Amitiza] 24 MCG) PO SCH (08:32)
[2019-03-21] MEDS: MEMANTINE 5 MG TAB PO SCH (08:32)
[2019-03-21] MEDS: DOCUSATE 100 MG CAP PO SCH (08:32)
[2019-03-21] MEDS: PRIMIDONE 50 MG TAB PO SCH ×2 (08:33→12:47)
[2019-03-21] MEDS: MULTIVITAMINS, THERA 1 EACH TAB PO SCH (08:33)
[2019-03-21] MEDS: CYANOCOBALAMIN 500 MCG TAB PO SCH (08:33)
[2019-03-21] MEDS: ENOXAPARIN 40 MG/0.4 ML SYRINGE SQ SCH (08:33)
[2019-03-21] MEDS ORDERED: HYDROcodone/APAP 7.5-325MG 1 EACH TAB PO PRN (09:35)
[2019-03-21] MEDS: HYDROcodone/APAP 7.5-325MG 1 EACH TAB PO PRN ×2 (11:35→16:47)
[2019-03-21] MEDS: NON-FORMULARY DRUG (Mirabegron [Myrbetriq] 50 MG) PO SCH (11:49)
--- NOTE | 2019-03-21 22:07 | P.PN ---
Progress Note - Text Progress Note Date: 03/21/19 - Chief Complaint Right femur pain Interval history: This is a very pleasant 78-year-old patient of Dr. Burris. Chronic stable medical conditions include GERD, hyperlipidemia, hypertension, some cognitive impairment, osteoarthritis, incontinence,. Patient is a resident of [facility]. Patient took a fall on March 02. Subsequently suffered a right femur fracture. This was a joint at already had arthroplasty. Pain was local ized to the hip area. Worse with activity better with rest. He could not be managed conservatively. Denies any cardiac history. Status post undergone right femur ORIF. Today-pain better controlled. Did work with therapy. Did tolerate her diet. Looking more peppy today. Review of systems: Was done for constitutional, cardiovascular, GI, pulmonary. relevant finding as above Current medications are reviewed in the electronic records from today's date Physical examination: VITAL SIGNS: 98.3, 68, 15, 126/65, 98% room air GENERAL: Sitting up in a chair, comfortable EYES: Pupils equal. Conjunctiva normal. HEENT: External appearance of nose and ears normal, oral cavity grossly normal. NECK: JVD not raised; masses not palpable. HEART: First and second heart sounds are normal; no edema. LUNGS: Respiratory rate normal; clear to auscultation. ABDOMEN: Soft, nontender, liver spleen not palpable, no masses palpable. PSYCH: Alert and oriented x3; mood and affect normal. INVESTIGATIONS, reviewed in the clinical context: Hemoglobin 11.2 Previous labs Blood work from March 17 shows a white count of 4.6 hemoglobin 11.6 From March 07 shows a potassium of 4.2 creatinine of 0.47 Assessment: -ORIF of right femur fracture that occurred on January 31 -GERD -Hyperlipidemia -Essential hypertension. -Mild cognitive impairment -Chronic urinary stress incontinence -Normocytic anemia cause unknown, for further workup as an outpatient Plan: Patient doing well stable. Continue per medication treatment plan. Going to the rehab. Thank you Dr. De Leon
== END 2019-03-21 16:50 | DRG 481 ==
LOC: 2ORMAIN 12:46 → 4SSUR 17:17
PROVIDERS: ADMIT Orthopaedic Surgery; ATTEND Orthopaedic Surgery
PROC: 0QS604Z Reposition Right Upper Femur with Internal Fixation Device, Open Approach (ICD-10-PCS; principal; 2019-03-18 14:55)
DX: S72.8X1A Other fracture of right femur, initial encounter for closed fracture (principal); M97.01XA Periprosthetic fracture around internal prosthetic right hip joint, initial encounter; W18.30XA Fall on same level, unspecified, initial encounter; E78.5 Hyperlipidemia, unspecified; F03.90 Unspecified dementia, unspecified severity, without behavioral disturbance, psychotic disturbance, mood disturbance, and anxiety; F31.9 Bipolar disorder, unspecified; I10 Essential (primary) hypertension; K21.9 Gastro-esophageal reflux disease without esophagitis; M19.90 Unspecified osteoarthritis, unspecified site; M81.0 Age-related osteoporosis without current pathological fracture; N39.3 Stress incontinence (female) (male); Z79.1 Long term (current) use of non-steroidal anti-inflammatories (NSAID); Z79.82 Long term (current) use of aspirin; Z79.83 Long term (current) use of bisphosphonates; Z79.899 Other long term (current) drug therapy; Z82.49 Family history of ischemic heart disease and other diseases of the circulatory system; Z85.41 Personal history of malignant neoplasm of cervix uteri; Z87.891 Personal history of nicotine dependence; Z96.643 Presence of artificial hip joint, bilateral; Z96.653 Presence of artificial knee joint, bilateral; D64.9 Anemia, unspecified
CPT/HCPCS: 85025; 86891

== ENCOUNTER → 2019-09-02 | Outpatient (CLI) | payer MEDICARE ==
--- NOTE | 2019-09-02 15:43 | MR ---
EXAMINATION TYPE: MR lumbar spine wo con DATE OF EXAM: 09/02/2019 COMPARISON: NONE HISTORY: Low back pain TECHNIQUE: T1 and T2 axial and sagittal images of the lumbar spine are submitted. FINDINGS: There is no abnormal signal seen within the visualized spinal cord or paraspinal soft tissu es. At T12-L1 there is degenerative disc disease and circumferential disc bulging. No focal herniation. N o Canal stenosis. Disc bulging greater laterally to left. At L1-2 there is degenerative disc disease and disc bulging but no canal stenosis, focal herniation o r foraminal encroachment. At L2-3 there is moderate degenerative disc disease with circumferential disc bulging. No foraminal e ncroachment. No Canal stenosis. At L3-4 there is degenerative disc disease with discogenic marrow changes and hypertrophic spurring. Disc bulging noted with mild hypertrophy of the facet joints. No Canal stenosis. Neural foramina leo in patent with mild narrowing but no definite nerve root contact. Mild effacement of thecal sac. At L4-5 there is degenerative disc disease with ligamentum flavum and facet purchase 3. Disc bulging is seen capped by spur resulting in mild effacement of thecal sac and borderline to m ild canal stenosis. Moderate to severe bilateral foraminal encroachment At L5-S1 there is facet arthropathy but no disc herniation or canal stenosis. No foraminal encroachme nt. 4 mm synovial cyst adjacent to the posterior margin of the right facet joint which is extracanali cular. IMPRESSION: 1. Multilevel severe degenerative disc disease with disc bulging noted at multiple levels but no foca l herniation. Hypertrophic changes and disc bulging at L4-5 result in effacement of thecal sac and brady rderline to mild canal stenosis and moderate to severe bilateral foraminal encroachment.
== END | disposition home or self-care (01) ==
LOC: RADMRIMAIN 12:55
PROVIDERS: ATTEND Family Medicine
DX: M51.36 Other intervertebral disc degeneration, lumbar region (principal); M48.061 Spinal stenosis, lumbar region without neurogenic claudication; M51.26 Other intervertebral disc displacement, lumbar region
CPT/HCPCS: 72148

== ENCOUNTER → 2020-02-10 | Outpatient (CLI) | payer MEDICARE ==
[~2020-02-10] MED LIST changes: -ACETAMINOPHEN TAB 500 MG TAB PO ONE; -DEXAMETHASONE SOD PHOSPHATE 10 MG/ML 1 ML VIAL IV ONE; -HYDROmorphone 0.5 MG/0.5 ML SYRINGE IVP PRN; +IODINE/POTASS IOD (LUGOLS) BOTTLE TOPICAL ONE; -LIDOCAINE 1% 20 ML VIAL (10MG/ML) FOR IV START INTRADERMA PRN; -MELOXICAM 7.5 MG TAB PO ONE; -MIDAZOLAM 2 MG/2 ML VIAL IV PRN; -ONDANSETRON 4 MG/2 ML VIAL IVP ONE; -Pre Op ABX Message 1 EACH MISC MISCELLANE ONE; -SCOPOLAMINE 1.5MG/72HR PATCH TRANSDERM ONE; -TRANEXAMIC ACID 1,000 MG in SODIUM CHLORIDE 0.9% 100 ML IVPB ONE
--- NOTE | 2020-02-11 07:20 | NM ---
EXAMINATION TYPE: NM DatScan Brain SPECT DATE OF EXAM: 02/10/2020 COMPARISON: NONE HISTORY: Tremor TECHNIQUE: 10 drops of Lugol's solution was administered 1 hour prior to injection as a thyroid bloc elsa agent. After the administration of 4.39 mCi I-123 Ioflupane DaTscan. Images obtained 3 hours p ost injection. SPECT images of the brain were acquired with axial and coronal reconstructions. FINDINGS: Uptake along the striata is symmetric and normal. IMPRESSION: Normal ELAN scan
== END | disposition home or self-care (01) ==
LOC: RADNMMAIN 11:07
PROVIDERS: ATTEND Psychiatry & Neurology Neurology
DX: G25.0 Essential tremor (principal)
CPT/HCPCS: 78803; A9584

== ENCOUNTER → 2020-02-23 | Outpatient (CLI) | payer MEDICARE ==
--- NOTE | 2020-02-23 13:44 | US ---
EXAMINATION TYPE: US transvaginal DATE OF EXAM: 02/23/2020 COMPARISON: NONE CLINICAL HISTORY: N95.0 Post menopausal bleeding. Bleeding x 3 months ago TECHNIQUE: Transvaginal (TV). EXAM MEASUREMENTS: Uterus: 5.2 x 2.9 x 4.3 cm Endometrial Stripe: .4 cm 1. Uterus: Anteverted Heterogenous fibroid seen 2.3 x 1.8 x 2.3 cm. 2. Endometrium: Fluid seen 3. Right Ovary: Obscured by overlying bowel gas 4. Left Ovary: Obscured by overlying bowel gas 5. Bilateral Adnexa: wnl 6. Posterior cul-de-sac: wnl IMPRESSION: Leiomyomatous change of the uterus.
== END | disposition home or self-care (01) ==
LOC: RADUSWWP 12:08
PROVIDERS: ATTEND Family Medicine
DX: D25.9 Leiomyoma of uterus, unspecified (principal); N95.0 Postmenopausal bleeding
CPT/HCPCS: 76830

== ENCOUNTER 2020-03-07 21:08 | Emergency (ER) | payer MEDICARE ==
[2020-03-07 21:30] VITALS: RESP 18; TEMP 99
[2020-03-07] MEDS ORDERED: MORPHINE SULFATE 4 MG/ML SYRINGE IM STA (21:35)
--- NOTE | 2020-03-07 21:59 | XR ---
EXAMINATION TYPE: XR wrist complete LT DATE OF EXAM: 03/07/2020 COMPARISON: NONE HISTORY: Pain and swelling TECHNIQUE: 4 views FINDINGS: IMPRESSION: There is impacted transverse fracture distal radial metaphysis. There is nondisplaced fra cture ulnar styloid process. There is narrowing and spurring at the first carpometacarpal joint. The carpal bones appear intact. There is no dislocation. IMPRESSION: Acute fractures of the distal radius and ulna as above. There is radius fracture impaction. Moderate osteoarthritis at the first carpometacarpal joint.
--- NOTE | 2020-03-07 22:01 | XR ---
EXAMINATION TYPE: XR hand complete LT DATE OF EXAM: 03/07/2020 COMPARISON: NONE HISTORY: Fall. Pain. TECHNIQUE: 3 views FINDINGS: There is acute impacted transverse fracture distal radial metaphysis 1 cm from the wrist vanesa int. There is slight posterior displacement of the distal fragment on the lateral view 5 mm. There is nondisplaced ulnar styloid process fracture. There is moderate osteoarthritis at the first carpometa carpal joint. There is narrowing and spurring at the scaphoid trapezium joint. The metacarpals are in tact. There is some osteopenia. IMPRESSION: Acute fractures of the distal radius and ulna as above.
[2020-03-07] MEDS ORDERED: HYDROmorphone 0.5 MG/0.5 ML SYRINGE IM STA (22:30)
[2020-03-07] MEDS ORDERED: LIDOCAINE 1% INJ 10MG/ML (20 ML MDV) SQ ONE (22:38)
[2020-03-07] MEDS ORDERED: ACET/COD 300 MG/30 MG STARTER PACK 6 TAB BTL PO STA (23:28)
--- NOTE | 2020-03-07 23:29 | ED ---
General Adult HPI - General Chief complaint: Extremity Injury, Upper Stated complaint: LT wrist injury Time Seen by Provider: 03/07/20 21:18 Source: patient, RN notes reviewed Mode of arrival: EMS Limitations: no limitations - History of Present Illness Initial comments: 79-year-old female with a past medical history of cervical cancer, hyperlipidemia, GERD, osteoarthritis presents to the emergency department for a chief complaint of wrist pain. Patient states she was at her friend's house when she stepped wrong down the last step and fell forward. Patient states she fell onto the left hand. Patient states her left wrist is very painful. Patient does not take blood thinners. Patient did not hit her head. She did not sustain any other injuries. She denies shortness of breath lightheadedness or chest pain prior to fall. States she only fell because she missed the step.Patient has no other complaints at this time including shortness of breath, chest pain, abdominal pain, nausea or vomiting, headache, or visual changes. - Related Data Home Medications Medication Instructions Recorded Confirmed FLUoxetine HCL [PROzac] 40 mg PO HS 12/14/14 03/18/19 Multivitamin/Iron/Folic Acid 1 tab PO DAILY 12/14/14 03/18/19 [Centrum Complete Multivit Tab] Cholecalciferol [Vitamin D3 (25 1,000 unit PO DAILY 12/23/14 03/18/19 Mcg = 1000 Iu)] Donepezil [Aricept] 10 mg PO HS 12/23/14 03/18/19 Memantine [Namenda] 5 mg PO DAILY 01/24/16 03/18/19 Primidone [Mysoline] 50 mg PO QID 01/24/16 03/18/19 Alendronate Sodium [Fosamax] 70 mg PO WE 09/04/16 03/18/19 Cyanocobalamin (Vitamin B-12) 1,000 mcg PO DAILY 12/29/16 03/18/19 [Vitamin B-12] Aspirin EC [Ecotrin Low Dose] 81 mg PO DAILY 03/03/19 03/18/19 Calcium/Magnesium/Zinc 1 tab PO DAILY 03/03/19 03/18/19 [Xzxkoiz-Kufgyqvcn-Umhv Tablet] Chlorhexidine Gluconate [Periogard] 15 ml MUCOUS MEM BID 03/03/19 03/18/19 Meloxicam [Mobic] 7.5 mg PO BID 03/03/19 03/18/19 Mirabegron [Myrbetriq] 50 mg PO DAILY 03/03/19 03/18/19 Previous Rx's Medication Instructions Recorded Acetaminophen Tab [Tylenol] 325 mg PO Q6HR PRN tab 03/06/19 Docusate [Colace] 100 mg PO DAILY cap 03/06/19 Lubiprostone [Amitiza] 24 mcg PO BID #2 capsule 03/06/19 traZODone HCL 200 mg PO HS #4 tablet 03/06/19 HYDROcodone/APAP 7.5-325MG [[place] 1 - 2 each PO Q6HR PRN #56 tab 03/21/19 7.5] Heparin Sodium,Porcine [Heparin 5,000 unit SQ Q12HR #60 vial 03/21/19 Sodium] Sennosides-Docusate Sodium 2 each PO HS tab 03/21/19 [Senokot-S] clonazePAM [KlonoPIN] 1 mg PO BID@0700,1500 #6 tablet 03/21/19 clonazePAM [KlonoPIN] 2 mg PO HS@2300 #3 tablet 03/21/19 HYDROcodone/APAP 5-325MG [[place] 1 tab PO Q6HR PRN #10 tab 03/07/20 5-325] Allergies Allergy/AdvReac Type Severity Reaction Status Date / Time lorazepam [From Ativan] Allergy Hallucinati Verified 03/07/20 21:30 ons pneumococcal vaccine Allergy Swelling Verified 03/07/20 21:30 Review of Systems ROS Statement: Those systems with pertinent positive or pertinent negative responses have been documented in the HPI. ROS Other: All systems not noted in ROS Statement are negative. Past Medical History Past Medical History: Cancer, GERD/Reflux, Hyperlipidemia, Memory Impairment, Osteoarthritis (OA), Skin Disorder Additional Past Medical History / Comment(s): cervical ca, INCONTINENCE, FRACTURE OF RIGHT ANKLE, psoriasis History of Any Multi-Drug Resistant Organisms: None Reported Past Surgical History: Adenoidectomy, Joint Replacement, Orthopedic Surgery, Tonsillectomy, Tubal Ligation Additional Past Surgical History / Comment(s): mateusz hip and right knee replacement , REVISION OF TOTAL LEFT HIP, R knee arthroscopy, part of cervix removed, EGD/colonoscopy. Past Anesthesia/Blood Transfusion Reactions: No Reported Reaction, Family History of Problems w/ Anesthesia Additional Past Anesthesia/Blood Transfusion Reaction / Comment(s): "father had problem w/spinal & was paralyzed per pt." Past Psychological History: Anxiety, Bipolar, Depression Smoking Status: Never smoker Past Alcohol Use History: Rare Past Drug Use History: None Reported - Past Family History Father Family Medical History: Hypertension Additional Family Medical History / Comment(s): open heart surgery, paralyzed by spinal Mother Family Medical History: Dementia General Exam Limitations: no limitations General appearance: alert, in no apparent distress Head exam: Present: atraumatic, normocephalic, normal inspection Eye exam: Present: normal appearance, PERRL, EOMI. Absent: scleral icterus, conjunctival injection, periorbital swelling ENT exam: Present: normal exam, mucous membranes moist Neck exam: Present: normal inspection, full ROM. Absent: tenderness, meningismus, lymphadenopathy Respiratory exam: Present: normal lung sounds bilaterally. Absent: respiratory distress, wheezes, rales, rhonchi, stridor Cardiovascular Exam: Present: regular rate, normal rhythm, normal heart sounds. Absent: systolic murmur, diastolic murmur, rubs, gallop, clicks Extremities exam: Present: tenderness (Tenderness to the dorsum of the left wrist with mild ecchymosis and contusion. No lacerations.), normal capillary refill (Capillary refill less than 2 seconds, DP pulse 2+ in the left upper extremity.), joint swelling (Mild edema to the left wrist.), other (Sensation intact left upper extremity.). Absent: full ROM (Patient unable to flex or extend the left wrist secondary to pain. She is able to move all digits of the left hand.), pedal edema, calf tenderness Course Vital Signs 03/07/20 21:26 Temperature 99.0 F Pulse Rate 68 Respiratory 18 Rate Blood Pressure 147/80 O2 Sat by Pulse 98 Oximetry Procedures - Joint Aspiration/Injection Consent Obtained: verbal consent Side of Body: left Joint Aspirated: wrist/hand Skin Prep: sterile prep and drape (with chlorhexidine) Local Anesthesia Used: Lidocaine 1% Amount of Anesthesia Used (mLs): 5 Needle Size Used: 22G Syringe Size Used: 10cc Patient Tolerated Procedure: well, no complications - Orthopedic Splinting/Casting Injury #1 Side: left Upper Extremity Injury Location: long arm Upper Extremity Immobilizer: sugar tong splint Additional Comments: Neurovascular status intact left upper extremity. Medical Decision Making - Medical Decision Making Wrist x-ray shows acute fracture of the distal radius and ulna with radius fracture impaction. Dr. Marie did review these films with Dr. Cali, recommends splinting. Patient was given IM pain medications. Hematoma block was performed. Attempted wrist reduction. Patient was splinted in a sugar tong. Patient will follow up with orthopedics, referral given. Patient has [place] at home that she will take for pain. Discussed rest ice and elevate. Discussed returning here for any worsening symptoms. Disposition Clinical Impression: Radius and ulna distal fracture Disposition: HOME SELF-CARE Condition: Good Instructions (If sedation given, give patient instructions): Wrist Injury (ED) Additional Instructions: Please take your [place] as needed for pain. Please follow-up with orthopedics first thing Sunday morning by calling for an appointment. Return here to the emergency room for any worsening symptoms. In the meantime rest ice and elevate the left wrist. Prescriptions: HYDROcodone/APAP 5-325MG [[place] 5-325] 1 tab PO Q6HR PRN #10 tab PRN Reason: Pain Is patient prescribed a controlled substance at d/c from ED?: No Referrals: Zane Burris DO [Primary Care Provider] - 1-2 days Casey Marie DO [Medical Doctor] - 1-2 days Time of Disposition: 23:23
[2020-03-08 00:01] VITALS: BP 153/71; PULSE 66
== END 2020-03-07 23:50 | disposition home or self-care (01) ==
LOC: EC 21:08
DX: S52.615A Nondisplaced fracture of left ulna styloid process, initial encounter for closed fracture (principal); S52.601A Unspecified fracture of lower end of right ulna, initial encounter for closed fracture; M19.90 Unspecified osteoarthritis, unspecified site; F41.9 Anxiety disorder, unspecified; F31.9 Bipolar disorder, unspecified; Z88.8 Allergy status to other drugs, medicaments and biological substances; Z88.7 Allergy status to serum and vaccine; Z79.899 Other long term (current) drug therapy; Z79.82 Long term (current) use of aspirin; Z79.1 Long term (current) use of non-steroidal anti-inflammatories (NSAID); Z96.643 Presence of artificial hip joint, bilateral; Z96.651 Presence of right artificial knee joint; Z85.41 Personal history of malignant neoplasm of cervix uteri; W01.0XXA Fall on same level from slipping, tripping and stumbling without subsequent striking against object, initial encounter; Y93.89 Activity, other specified; Y92.099 Unspecified place in other non-institutional residence as the place of occurrence of the external cause
CPT/HCPCS: 96372 ×2; 99284; 25605; 20605; 73110; 73130; J2270; J2001; J1170

== ENCOUNTER 2020-03-28 10:56 | Emergency (ER) | payer MEDICARE ==
[2020-03-28 11:13] VITALS: BP 118/67; PULSE 58; RESP 16; TEMP 99
[2020-03-28] MEDS ORDERED: KETOROLAC 15 MG/ML 1 ML VIAL IM STA (11:15)
[2020-03-28] MEDS ORDERED: NITROGLYCERIN OINT 1 INCH/GM PACKET TOPICAL STA (11:16)
--- NOTE | 2020-03-28 11:47 | XR ---
EXAMINATION TYPE: 4 views right wrist 3 views left knee DATE OF EXAM: 03/28/2020 COMPARISON: Wrist 02/01/2018 HISTORY: 79-year-old female with fall and pain FINDINGS: Right wrist: Redemonstrated degenerative spurring at the distal radioulnar joint. There is some soft tissue swelli ng about the wrist. Bony deformity with dorsal angulation of the distal radius was present previously compatible with old fracture deformity. Severe degenerative change first CMC joint and triscaphe sky nt. Left knee: Osteopenia. No joint effusion seen. Extensor mechanism appears intact. Some degenerative spurring at the patellofemoral compartment. IMPRESSION: 1. Right wrist: Severe OA at the base of the thumb. Chronic fracture deformity of the distal radius. Similar degenerative change at the DRUJ. No acute osseous abnormality seen. 2. Left knee: Osteopenia. No acute osseous abnormality seen.
--- NOTE | 2020-03-28 11:54 | ED ---
Extremity Problem HPI - General Chief complaint: Extremity Problem,Nontraumatic Stated complaint: L leg Pain Time Seen by Provider: 03/28/20 10:58 Source: patient, EMS, RN notes reviewed, old records reviewed Mode of arrival: EMS Limitations: no limitations - History of Present Illness Initial comments: 79 year old female presents today with L knee pain and R wrist pain. Patient's left knee pain is worse today after twisting trying to into her new apartment and lifting a box and picture frame. Patient states she also is complaining of right wrist pain and chronic her sister movements from her heavy lifting. Patient states that she has had no abrasions. She did have a recent fall which she fractured her left wrist. She denies any other significant complaints of did take [place] prior to arrival. She lives in assisted living home. - Related Data Home Medications Medication Instructions Recorded Confirmed FLUoxetine HCL [PROzac] 40 mg PO HS 12/14/14 03/18/19 Multivitamin/Iron/Folic Acid 1 tab PO DAILY 12/14/14 03/18/19 [Centrum Complete Multivit Tab] Cholecalciferol [Vitamin D3 (25 1,000 unit PO DAILY 12/23/14 03/18/19 Mcg = 1000 Iu)] Donepezil [Aricept] 10 mg PO HS 12/23/14 03/18/19 Memantine [Namenda] 5 mg PO DAILY 01/24/16 03/18/19 Primidone [Mysoline] 50 mg PO QID 01/24/16 03/18/19 Alendronate Sodium [Fosamax] 70 mg PO WE 09/04/16 03/18/19 Cyanocobalamin (Vitamin B-12) 1,000 mcg PO DAILY 12/29/16 03/18/19 [Vitamin B-12] Aspirin EC [Ecotrin Low Dose] 81 mg PO DAILY 03/03/19 03/18/19 Calcium/Magnesium/Zinc 1 tab PO DAILY 03/03/19 03/18/19 [Oyjlnvh-Xytwjlbdx-Dyfo Tablet] Chlorhexidine Gluconate [Periogard] 15 ml MUCOUS MEM BID 03/03/19 03/18/19 Meloxicam [Mobic] 7.5 mg PO BID 03/03/19 03/18/19 Mirabegron [Myrbetriq] 50 mg PO DAILY 03/03/19 03/18/19 Previous Rx's Medication Instructions Recorded Acetaminophen Tab [Tylenol] 325 mg PO Q6HR PRN tab 03/06/19 Docusate [Colace] 100 mg PO DAILY cap 03/06/19 Lubiprostone [Amitiza] 24 mcg PO BID #2 capsule 03/06/19 traZODone HCL 200 mg PO HS #4 tablet 03/06/19 HYDROcodone/APAP 7.5-325MG [[place] 1 - 2 each PO Q6HR PRN #56 tab 03/21/19 7.5] Heparin Sodium,Porcine [Heparin 5,000 unit SQ Q12HR #60 vial 03/21/19 Sodium] Sennosides-Docusate Sodium 2 each PO HS tab 03/21/19 [Senokot-S] clonazePAM [KlonoPIN] 1 mg PO BID@0700,1500 #6 tablet 03/21/19 clonazePAM [KlonoPIN] 2 mg PO HS@2300 #3 tablet 03/21/19 HYDROcodone/APAP 5-325MG [[place] 1 tab PO Q6HR PRN #10 tab 03/07/20 5-325] Hydrocodone/Acetaminophen [[place] 1 each PO Q6H PRN #10 tab 03/08/20 5-325] Allergies Allergy/AdvReac Type Severity Reaction Status Date / Time lorazepam [From Ativan] Allergy Hallucinati Verified 03/28/20 11:10 ons pneumococcal vaccine Allergy Swelling Verified 03/28/20 11:10 Review of Systems ROS Statement: Those systems with pertinent positive or pertinent negative responses have been documented in the HPI. ROS Other: All systems not noted in ROS Statement are negative. Past Medical History Past Medical History: Cancer, GERD/Reflux, Hyperlipidemia, Memory Impairment, Osteoarthritis (OA), Skin Disorder Additional Past Medical History / Comment(s): cervical ca, INCONTINENCE, FRACTURE OF RIGHT ANKLE, psoriasis History of Any Multi-Drug Resistant Organisms: None Reported Past Surgical History: Adenoidectomy, Joint Replacement, Orthopedic Surgery, Tonsillectomy, Tubal Ligation Additional Past Surgical History / Comment(s): mateusz hip and right knee replacement , REVISION OF TOTAL LEFT HIP, R knee arthroscopy, part of cervix removed, EGD/colonoscopy. Past Anesthesia/Blood Transfusion Reactions: No Reported Reaction, Family History of Problems w/ Anesthesia Additional Past Anesthesia/Blood Transfusion Reaction / Comment(s): "father had problem w/spinal & was paralyzed per pt." Past Psychological History: Anxiety, Bipolar, Depression Smoking Status: Never smoker Past Alcohol Use History: Rare Past Drug Use History: None Reported - Past Family History Father Family Medical History: Hypertension Additional Family Medical History / Comment(s): open heart surgery, paralyzed by spinal Mother Family Medical History: Dementia General Exam - General Exam Comments Initial Comments: 79 year old female, no distress. Limitations: no limitations General appearance: alert, in no apparent distress Head exam: Present: atraumatic, normocephalic, normal inspection Eye exam: Present: normal appearance, PERRL, EOMI. Absent: scleral icterus, conjunctival injection, periorbital swelling ENT exam: Present: normal exam, mucous membranes moist Neck exam: Present: normal inspection. Absent: tenderness, meningismus, lymphadenopathy Respiratory exam: Present: normal lung sounds bilaterally. Absent: respiratory distress, wheezes, rales, rhonchi, stridor Cardiovascular Exam: Present: regular rate, normal rhythm, normal heart sounds. Absent: systolic murmur, diastolic murmur, rubs, gallop, clicks GI/Abdominal exam: Present: soft, normal bowel sounds. Absent: distended, tenderness, guarding, rebound, rigid Extremities exam: Present: normal inspection, full ROM, normal capillary refill. Absent: tenderness, pedal edema, joint swelling, calf tenderness Left Upper Leg exam: Present: normal inspection, full ROM Knee exam: Present: normal inspection, full ROM (Patient reports tenderness over the lateral aspect of the knee. There is full range of motion noted. Normal pulses distally. No significant swelling or erythema.), tenderness (Lateral meniscus) Lower Leg exam: Present: normal inspection, full ROM Ankle exam: Present: normal inspection, full ROM Foot/Toe exam: Present: normal inspection, full ROM Back exam: Present: normal inspection Neurological exam: Present: alert, oriented X3, CN II-XII intact Psychiatric exam: Present: normal affect, normal mood Skin exam: Present: warm, dry, intact, normal color. Absent: rash Course Vital Signs 03/28/20 11:10 Temperature 99 F Pulse Rate 58 L Respiratory 16 Rate Blood Pressure 118/67 O2 Sat by Pulse 96 Oximetry Medical Decision Making - Medical Decision Making 79-year-old female presents with left knee pain after twisting while lifting a box. She also has right wrist pain which is chronic. Fortunately into a new apartment. Patient to take and [place] that was given to her by [facility] care staff. At this time patient's x-rays reviewed and unremarkable. No evidence of fracture. She does have evidence of a arthritis within the right wrist joint which is from old fracture. Worst MCP. Patient was given an Saurav wrap for her knee. Discussed chronic wrist pain from old fractures. She is able to ambulate. Discussed close follow-up with orthopedic associates. - Radiology Data Radiology results: report reviewed Right wrist x-ray shows severe osteoarthritis of the base of the thumb. Chronic fracture deformity of the distal radius. Similar to a general change of the DRUJ. No osseous lesions Q. Left knee shows no acute osseous lesion. Disposition Clinical Impression: Knee sprain, Chronic pain of right wrist Disposition: HOME SELF-CARE Condition: Good Instructions (If sedation given, give patient instructions): Knee Sprain (ED), Osteoarthritis (ED) Additional Instructions: Please use medication as discussed. Follow up with orthopedic. Rest, ice and elevate knee. Please follow up with family doctor if symptoms have not improved over the next two days. Please return to the emergency room if your symptoms increase or worsen or for any other concerns. Is patient prescribed a controlled substance at d/c from ED?: No Referrals: Zane Burris DO [Primary Care Provider] - 1-2 days Time of Disposition: 12:30
[2020-03-28] MEDS ORDERED: HYDROcodone/APAP 7.5-325MG 1 EACH TAB PO ONE (12:56)
== END 2020-03-28 13:59 | disposition home or self-care (01) ==
LOC: EC 10:56
DX: S83.92XA Sprain of unspecified site of left knee, initial encounter (principal); M25.531 Pain in right wrist; G89.29 Other chronic pain; Z76.5 Malingerer [conscious simulation]; M19.031 Primary osteoarthritis, right wrist; F41.9 Anxiety disorder, unspecified; F31.9 Bipolar disorder, unspecified; E78.5 Hyperlipidemia, unspecified; Z87.81 Personal history of (healed) traumatic fracture; Z88.8 Allergy status to other drugs, medicaments and biological substances; Z88.7 Allergy status to serum and vaccine; Z85.41 Personal history of malignant neoplasm of cervix uteri; Z79.1 Long term (current) use of non-steroidal anti-inflammatories (NSAID); Z96.643 Presence of artificial hip joint, bilateral; Z96.651 Presence of right artificial knee joint; Z79.899 Other long term (current) drug therapy; X37.1XXA Tornado, initial encounter; Y93.89 Activity, other specified
CPT/HCPCS: 73110; 73562; 99284; 96372; J1885

== ENCOUNTER 2020-06-10 07:42 | Observation (INO) | payer MEDICARE ==
[2020-06-10] MEDS ORDERED: NITROGLYCERIN SL TABS 0.4 MG TAB SUBLINGUAL STA ×3 (07:48)
[2020-06-10] MEDS ORDERED: ASPIRIN 81 MG PO STA (07:48)
--- NOTE | 2020-06-10 07:51 | ED ---
General Adult HPI - General Chief complaint: Chest Pain Stated complaint: chest pain Time Seen by Provider: 06/10/20 07:42 Source: patient, EMS, RN notes reviewed Limitations: no limitations - History of Present Illness Initial comments: Patient is a pleasant 79-year-old female presenting to the emergency Department with complaints of chest discomfort. Onset of symptoms was around 6:30 this morning. Discomfort is currently 7/10. Patient complains of chest pressure. Patient does have some mild associated dyspnea. No nausea. Patient was sweaty earlier. No history of similar symptoms previously. Patient admits to feeling anxious. - Related Data Home Medications Medication Instructions Recorded Confirmed FLUoxetine HCL [PROzac] 40 mg PO HS@199912/14/14 06/10/20 Multivitamin/Iron/Folic Acid 1 tab PO DAILY@0812/14/14 06/10/20 [Centrum Complete Multivit Tab] Cholecalciferol [Vitamin D3 (25 1,000 unit PO DAILY@0800 12/23/14 06/10/20 Mcg = 1000 Iu)] Donepezil [Aricept] 10 mg PO HS@199912/23/14 06/10/20 Memantine [Namenda] 5 mg PO HS@199901/24/16 06/10/20 Primidone [Mysoline] 50 mg PO BID@0800,1200 01/24/16 06/10/20 Alendronate Sodium [Fosamax] 70 mg PO WE@0600 09/04/16 06/10/20 Cyanocobalamin (Vitamin B-12) 1,000 mcg PO DAILY@0800 12/29/16 06/10/20 [Vitamin B-12] Aspirin EC [Ecotrin Low Dose] 81 mg PO DAILY@0800 03/03/19 06/10/20 Docusate [Colace] 100 mg PO HS PRN 06/10/20 06/10/20 FLUoxetine HCL [PROzac] 10 mg PO HS@199906/10/20 06/10/20 Meloxicam [Mobic] 7.5 mg PO BID@0600,1800 06/10/20 06/10/20 Polyethylene Glycol 3350 [Miralax] 17 gm PO DAILY@0800 06/10/20 06/10/20 captopriL [Captopril] 25 mg PO BID PRN 06/10/20 06/10/20 clonazePAM 0.5 mg PO BID@08,199906/10/20 06/10/20 hydrALAZINE HCL 10 mg PO QID 06/10/20 06/10/20 traZODone HCL 100 mg PO HS@199906/10/20 06/10/20 Allergies Allergy/AdvReac Type Severity Reaction Status Date / Time lorazepam [From Ativan] Allergy Hallucinati Verified 06/10/20 08:43 ons pneumococcal vaccine Allergy Swelling Verified 06/10/20 08:43 Review of Systems ROS Statement: Those systems with pertinent positive or pertinent negative responses have been documented in the HPI. ROS Other: All systems not noted in ROS Statement are negative. Constitutional: Denies: fever Eyes: Denies: eye pain ENT: Denies: ear pain Respiratory: Denies: cough Cardiovascular: Reports: chest pain Endocrine: Denies: fatigue Gastrointestinal: Denies: abdominal pain Genitourinary: Denies: dysuria Musculoskeletal: Denies: back pain Skin: Denies: rash Neurological: Denies: weakness Past Medical History Past Medical History: Cancer, GERD/Reflux, Hyperlipidemia, Memory Impairment, Osteoarthritis (OA), Skin Disorder Additional Past Medical History / Comment(s): cervical ca, INCONTINENCE, FRACTU RE OF RIGHT ANKLE, psoriasis History of Any Multi-Drug Resistant Organisms: None Reported Past Surgical History: Adenoidectomy, Joint Replacement, Orthopedic Surgery, Tonsillectomy, Tubal Ligation Additional Past Surgical History / Comment(s): mateusz hip and right knee replacement , REVISION OF TOTAL LEFT HIP, R knee arthroscopy, part of cervix removed, EGD/colonoscopy. Past Anesthesia/Blood Transfusion Reactions: No Reported Reaction, Family History of Problems w/ Anesthesia Additional Past Anesthesia/Blood Transfusion Reaction / Comment(s): "father had problem w/spinal & was paralyzed per pt." Past Psychological History: Anxiety, Bipolar, Depression Smoking Status: Never smoker Past Alcohol Use History: Rare Past Drug Use History: None Reported - Past Family History Father Family Medical History: Hypertension Additional Family Medical History / Comment(s): open heart surgery, paralyzed by spinal Mother Family Medical History: Dementia General Exam Limitations: no limitations General appearance: alert, in no apparent distress Head exam: Present: normocephalic Eye exam: Present: normal appearance Neck exam: Present: normal inspection Respiratory exam: Present: normal lung sounds bilaterally Cardiovascular Exam: Present: regular rate, normal rhythm Expanded Peripheral pulses: 2+: Radial (R), Radial (L), Dorsalis Pedis (R), Dorsalis Pedis (L) GI/Abdominal exam: Present: soft. Absent: distended, tenderness Extremities exam: Present: normal inspection. Absent: pedal edema, calf tenderness Neurological exam: Present: alert Psychiatric exam: Present: normal affect, normal mood Skin exam: Present: normal color Course Vital Signs 06/10/20 06/10/20 07:44 08:15 Temperature 97.6 F Pulse Rate 70 72 Respiratory 18 18 Rate Blood Pressure 133/73 O2 Sat by Pulse 10 L 100 Oximetry EKG Findings - EKG Comments: EKG Findings:: Normal sinus rhythm 63. MO 116. QRS 84. QT 412. QTC 421. Normal axis. Normal QRS. Nonspecific ST-T. Motion artifact. Medical Decision Making - Medical Decision Making Patient reevaluated and symptom-free following nitroglycerin. Patient updated on results and plan. Dr. Wnyne has been paged for admission covering for Dr. Mead. - Lab Data Result diagrams: 06/10/20 08:03 06/10/20 08:03 Lab Results 06/10/20 06/10/20 06/10/20 Range/Units 08:03 08:03 08:03 WBC 6.3 (3.8-10.6) k/uL RBC 4.32 (3.80-5.40) m/uL Hgb 13.7 (11.4-16.0) gm/dL Hct 41.9 (34.0-46.0) % MCV 97.1 (80.0-100.0) fL MCH 31.8 (25.0-35.0) pg MCHC 32.8 (31.0-37.0) g/dL RDW 13.7 (11.5-15.5) % Plt Count 269 (150-450) k/uL Neutrophils % 62 % Lymphocytes % 28 % Monocytes % 5 % Eosinophils % 3 % Basophils % 0 % Neutrophils # 3.9 (1.3-7.7) k/uL Lymphocytes # 1.8 (1.0-4.8) k/uL Monocytes # 0.3 (0-1.0) k/uL Eosinophils # 0.2 (0-0.7) k/uL Basophils # 0.0 (0-0.2) k/uL PT 10.2 (9.0-12.0) sec INR 1.0 (<1.2) APTT 23.2 (22.0-30.0) sec D-Dimer 0.52 (<0.60) mg/L FEU Sodium 139 (137-145) mmol/L Potassium 3.6 (3.5-5.1) mmol/L Chloride 107 (98-107) mmol/L Carbon Dioxide 23 (22-30) mmol/L Anion Gap 9 mmol/L BUN 17 (7-17) mg/dL Creatinine 0.71 (0.52-1.04) mg/dL Est GFR (CKD-EPI)AfAm >90 (>60 ml/min/1.73 sqM) Est GFR (CKD-EPI)NonAf 83 (>60 ml/min/1.73 sqM) Glucose 112 H (74-99) mg/dL Calcium 9.4 (8.4-10.2) mg/dL Magnesium 1.8 (1.6-2.3) mg/dL Total Bilirubin 0.4 (0.2-1.3) mg/dL AST 20 (14-36) U/L ALT 13 (4-34) U/L Alkaline Phosphatase 74 (38-126) U/L Troponin I (0.000-0.034) ng/mL Total Protein 6.8 (6.3-8.2) g/dL Albumin 4.0 (3.5-5.0) g/dL Amylase 148 H (30-110) U/L Lipase 344 H (23-300) U/L 06/10/20 Range/Units 08:03 WBC (3.8-10.6) k/uL RBC (3.80-5.40) m/uL Hgb (11.4-16.0) gm/dL Hct (34.0-46.0) % MCV (80.0-100.0) fL MCH (25.0-35.0) pg MCHC (31.0-37.0) g/dL RDW (11.5-15.5) % Plt Count (150-450) k/uL Neutrophils % % Lymphocytes % % Monocytes % % Eosinophils % % Basophils % % Neutrophils # (1.3-7.7) k/uL Lymphocytes # (1.0-4.8) k/uL Monocytes # (0-1.0) k/uL Eosinophils # (0-0.7) k/uL Basophils # (0-0.2) k/uL PT (9.0-12.0) sec INR (<1.2) APTT (22.0-30.0) sec D-Dimer (<0.60) mg/L FEU Sodium (137-145) mmol/L Potassium (3.5-5.1) mmol/L Chloride (98-107) mmol/L Carbon Dioxide (22-30) mmol/L Anion Gap mmol/L BUN (7-17) mg/dL Creatinine (0.52-1.04) mg/dL Est GFR (CKD-EPI)AfAm (>60 ml/min/1.73 sqM) Est GFR (CKD-EPI)NonAf (>60 ml/min/1.73 sqM) Glucose (74-99) mg/dL Calcium (8.4-10.2) mg/dL Magnesium (1.6-2.3) mg/dL Total Bilirubin (0.2-1.3) mg/dL AST (14-36) U/L ALT (4-34) U/L Alkaline Phosphatase (38-126) U/L Troponin I <0.012 (0.000-0.034) ng/mL Total Protein (6.3-8.2) g/dL Albumin (3.5-5.0) g/dL Amylase (30-110) U/L Lipase (23-300) U/L - Radiology Data Radiology results: image reviewed (Chest x-ray shows no acute process) Disposition Clinical Impression: Chest pain Disposition: ADMITTED IP TO THIS HOSP Is patient prescribed a controlled substance at d/c from ED?: No Referrals: Iraj Paredes MD [Primary Care Provider] - 1-2 days Decision Time: 09:23
[2020-06-10 08:08] LABS: Basophils % (A) 0 %; Eosinophils # (A) 0.2 k/uL (0-0.7); Eosinophils % (A) 3 %; HCT 41.9 % (34.0-46.0); HGB 13.7 gm/dL (11.4-16.0); Lymphocytes # (A) 1.8 k/uL (1.0-4.8); Lymphocytes % (A) 28 %; MCH 31.8 pg (25.0-35.0); MCHC 32.8 g/dL (31.0-37.0); MCV 97.1 fL (80.0-100.0); Mean Platelet Volume 7.5; Monocytes # (A) 0.3 k/uL (0-1.0); Monocytes % (A) 5 %; Neutrophils # (A) 3.9 k/uL (1.3-7.7); Neutrophils % (A) 62 %; Platelet Count 269 k/uL (150-450); RBC 4.32 m/uL (3.80-5.40); RDW 13.7 % (11.5-15.5); WBC 6.3 k/uL (3.8-10.6)
[2020-06-10 08:21] LABS: ALT 13 U/L (4-34); AST 20 U/L (14-36); African American GFR (CKD) >90 (>60 ml/min/1.73 sqM); Alkaline Phosphatase 74 U/L (38-126); Amylase 148 U/L (30-110); Anion Gap 9 mmol/L; Blood Urea Nitrogen 17 mg/dL (7-17); Calcium 9.4 mg/dL (8.4-10.2); Carbon Dioxide 23 mmol/L (22-30); Chloride 107 mmol/L (98-107); Glucose 112 mg/dL (74-99); Lipase 344 U/L (23-300); Magnesium 1.8 mg/dL (1.6-2.3); Non-African American GFR(CKD) 83 (>60 ml/min/1.73 sqM); Potassium 3.6 mmol/L (3.5-5.1); Sodium 139 mmol/L (137-145); Total Bilirubin 0.4 mg/dL (0.2-1.3); Total Protein 6.8 g/dL (6.3-8.2)
[2020-06-10 08:25] LABS: D-Dimer 0.52 mg/L FEU (<0.60); Partial Thromboplastin Time 23.2 sec (22.0-30.0); Prothrombin Time 10.2 sec (9.0-12.0)
--- NOTE | 2020-06-10 08:28 | XR ---
EXAMINATION TYPE: XR chest 2V DATE OF EXAM: 06/10/2020 COMPARISON: 03/02/2019 HISTORY: 79-year-old female with chest pain and shortness of breath TECHNIQUE: AP and lateral views FINDINGS: Heart upper limits of normal in size. Aorta and pulmonary vasculature within normal limits. Mild inte rstitial prominence is unchanged. No consolidation or pleural effusion. IMPRESSION: Chronic changes. No acute process seen.
[2020-06-10] MEDS ORDERED: NITROGLYCERIN SL TABS 0.4 MG TAB SUBLINGUAL PRN (09:23)
[2020-06-10] MEDS ORDERED: DOCUSATE 100 MG CAP PO PRN (10:46)
[2020-06-10] MEDS ORDERED: amLODIPine 5 MG TAB PO PRN (11:34)
[2020-06-10] MEDS: PRIMIDONE 50 MG TAB PO SCH ×2 (11:44→13:36)
[2020-06-10] MEDS: hydrALAZINE HCL 10 MG TAB PO SCH ×3 (11:44→16:28)
[2020-06-10] MEDS: NITROGLYCERIN OINT 1 INCH/GM PACKET TOPICAL SCH ×2 (11:44→17:35)
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
[2020-06-10 16:12] VITALS: RESP 16
[2020-06-10] MEDS: MELOXICAM 7.5 MG TAB PO SCH (17:35)
--- NOTE | 2020-06-10 18:17 | P.HPIM ---
History of Present Illness H&P Date: 06/10/20 Chief Complaint: Chest pain History of presenting complaint: This is a very pleasant 79-year-old patient of visiting physicians. Chronic stable medical conditions include GERD, hyperlipidemia, some memory impairment, osteoarthritis, urinary incontinence, cervical cancer with surgical removal, peripheral neuropathy. Bipolar disorder. Patient lives at [facility]. Does use a walker. She has a financial DPOA. Patient presents with one hour of pain across the chest. Rather constant. Did good on the right arm. No dizziness or lightheadedness. She did break out in a sweat. [place] tired and rundown. Admitted unstable angina. No fever no chills. Review of systems: GEN.: Tired EYES: None HEENT: None NECK: None RESPIRATORY: None CARDIOVASCULAR: As above GASTROINTESTINAL: None GENITOURINARY: None MUSCULOSKELETAL: Joint pains LYMPHATICS: None HEMATOLOGICAL: None PSYCHIATRY: A bit forgetful NEUROLOGICAL: Does use a walker Past medical history to include: GERD, hyperlipidemia, memory impairment, osteoarthritis, urinary incontinence, cervical cancer with surgery, peripheral neuropathy, bipolar disorder, does use a walker Social history: Lives at [facility]. Does use a walker. Has a financial DPOAE. Alcohol rarely. Does not smoke. Physical examination: VITAL SIGNS: 97.6, 70, 18, 133/73, 100% on room air GENERAL: BMI 28.3, sitting on bed, awake. EYES: Pupils equal. Conjunctiva normal. HEENT: External appearance of nose and ears normal, oral cavity grossly normal. NECK: JVD not raised; masses not palpable. HEART: First and second heart sounds are normal; no edema. LUNGS: Respiratory rate normal; clear to auscultation. ABDOMEN: Soft, nontender, liver spleen not palpable, no masses palpable. MUSCULAR skeletal: Evidence of OA PSYCH: [Able to answer questions l. NEUROLOGICAL: Cranial nerves grossly intact; no facial asymmetry, power and sensation grossly intact. LYMPHATICS: No lymph nodes palpable in the axilla and neck INVESTIGATIONS, reviewed in the clinical context: White count 6.3 hemoglobin 13.7 platelets 269 potassium 3.6 creatinine 0.71 Troponin I 3 negative EKG tracing personally reviewed by me-normal sinus rhythm Chest x-ray film personally reviewed by me-lungs thompson clear Assessment: -Possible unstable angina, and the patient's risk factors include hyperlipidemia, her age, postmenopausal -GERD -Hyperlipidemia -Mild cognitive impairment -Primary osteoarthritis -Chronic urinary incontinence -Peripheral neuropathy cause unknown -Bipolar disorder -Chronic gait dysfunction uses a walker -Essential hypertension Plan: Later this afternoon patient's blood pressure started running high. Taken manually was 200/90. We'll start the patient on amlodipine 5 mg in the morning. He did get 1 dose this morning. Change hydralazine to 25 mg 3 times a day. DC Nitropaste and put the patient on Imdur 30 mg day. Change PRN Capoten to Zestoretic 20/12.5 twice a day. Consult outsole caser. Cardiac he consulted. Past Medical History Past Medical History: Cancer, GERD/Reflux, Hyperlipidemia, Memory Impairment, Osteoarthritis (OA), Skin Disorder Additional Past Medical History / Comment(s): Mild dementia, arthritis in m ultiple joints, urine incontinence, UTIs, cervical cancer with surgical removal, cystic acne as a youg person, neuropathy bilateral hands/feet History of Any Multi-Drug Resistant Organisms: None Reported Past Surgical History: Adenoidectomy, Joint Replacement, Orthopedic Surgery, Tonsillectomy, Tubal Ligation Additional Past Surgical History / Comment(s): 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 Past Anesthesia/Blood Transfusion Reactions: No Reported Reaction, Family History of Problems w/ Anesthesia Additional Past Anesthesia/Blood Transfusion Reaction / Comment(s): "father had problem w/spinal & was paralyzed per pt." Past Psychological History: Anxiety, Bipolar, Depression Additional Psychological History / Comment(s): Pt resides at [facility]. She ambulates with a walker. She states she makes her own medical decisions, but has a financial DPOA named Anuja Randall. Pt states she showers and dresses herself. She goes to the dining room for meals and staff manage her medications. Smoking Status: Never smoker Past Alcohol Use History: Rare Additional Past Alcohol Use History / Comment(s): Pt started smoking in her 50's only smoked x 1 month then quit, occ glass of wine at holidays or if someone visits Past Drug Use History: None Reported - Past Family History Father Family Medical History: Hypertension Additional Family Medical History / Comment(s): open heart surgery, paralyzed by spinal Mother Family Medical History: Dementia Medications and Allergies Home Medications Medication Instructions Recorded Confirmed Type FLUoxetine HCL [PROzac] 40 mg PO HS@199912/14/14 06/10/20 History Multivitamin/Iron/Folic Acid 1 tab PO DAILY@0800 12/14/14 06/10/20 History [Centrum Complete Multivit Tab] Cholecalciferol [Vitamin D3 (25 1,000 unit PO DAILY@0800 12/23/14 06/10/20 History Mcg = 1000 Iu)] Donepezil [Aricept] 10 mg PO HS@199912/23/14 06/10/20 History Memantine [Namenda] 5 mg PO HS@199901/24/16 06/10/20 History Primidone [Mysoline] 50 mg PO BID@0800,1200 01/24/16 06/10/20 History Alendronate Sodium [Fosamax] 70 mg PO WE@59909/04/16 06/10/20 History Cyanocobalamin (Vitamin B-12) 1,000 mcg PO DAILY@0800 12/29/16 06/10/20 History [Vitamin B-12] Aspirin EC [Ecotrin Low Dose] 81 mg PO DAILY@0800 03/03/19 06/10/20 History Docusate [Colace] 100 mg PO HS PRN 06/10/20 06/10/20 History FLUoxetine HCL [PROzac] 10 mg PO HS@199906/10/20 06/10/20 History Meloxicam [Mobic] 7.5 mg PO BID@0600,1800 06/10/20 06/10/20 History Polyethylene Glycol 3350 [Miralax] 17 gm PO DAILY@0800 06/10/20 06/10/20 History captopriL [Captopril] 25 mg PO BID PRN 06/10/20 06/10/20 History clonazePAM 0.5 mg PO BID@0800,199906/10/20 06/10/20 History hydrALAZINE HCL 10 mg PO QID 06/10/20 06/10/20 History traZODone HCL 100 mg PO HS@199906/10/20 06/10/20 History Allergies Allergy/AdvReac Type Severity Reaction Status Date / Time lorazepam [From Ativan] Allergy Hallucinati Verified 06/10/20 08:43 ons pneumococcal vaccine Allergy Swelling Verified 06/10/20 08:43 Physical Exam Vitals: Vital Signs Temp Pulse Resp BP Pulse Ox 06/10/20 10:02 97.6 F 72 18 138/73 100 06/10/20 09:00 72 18 138/73 100 06/10/20 08:15 72 18 100 06/10/20 07:44 97.6 F 70 18 133/73 10 L Intake and Output 06/09/20 06/10/20 06/10/20 22:59 06:59 14:59 Other: Weight 77.111 kg Results CBC & Chem 7: 06/10/20 08:03 06/10/20 08:03 Labs: Abnormal Lab Results - Last 24 Hours (Table) 06/10/20 Range/Units 08:03 Glucose 112 H (74-99) mg/dL Amylase 148 H (30-110) U/L Lipase 344 H (23-300) U/L
[2020-06-10] MEDS: ISOSORBIDE MONONITRATE ER 30 MG TAB.ER.24H PO SCH (18:44)
[2020-06-10] MEDS ORDERED: DONEPEZIL 10 MG TAB PO SCH (20:00)
[2020-06-10] MEDS ORDERED: traZODone HCL 100 MG TAB PO SCH (20:00)
[2020-06-10] MEDS ORDERED: MEMANTINE 5 MG TAB PO SCH (20:00)
[2020-06-10] MEDS ORDERED: FLUoxetine HCL 20 MG CAP PO SCH (20:00)
[2020-06-10] MEDS ORDERED: FLUoxetine HCL 10 MG CAP PO SCH (20:00)
[2020-06-10] MEDS: clonazePAM 0.5 MG TAB PO SCH (20:37)
[2020-06-10] MEDS: LISINOPRIL-HCTZ 20-12.5 MG 1 EACH TAB PO SCH (20:41)
[2020-06-10] MEDS ORDERED: CALCIUM CARBONATE 500 MG CHEWABLE PO PRN (21:00)
[2020-06-10] MEDS: hydrALAZINE HCL 25 MG TAB PO SCH (22:07)
[2020-06-11] MEDS ORDERED: ACETAMINOPHEN TAB 500 MG TAB PO PRN (02:30)
[2020-06-11] MEDS: MELOXICAM 7.5 MG TAB PO SCH (05:09)
[2020-06-11] MEDS ORDERED: REGADENOSON 0.4 MG/5 ML SYRINGE IV ONE (07:00)
[2020-06-11] MEDS ORDERED: AMINOPHYLLINE 500 MG/20 ML VIAL IV PRN (07:00)
[2020-06-11] MEDS ORDERED: CAFFEINE CITRATE 60 MG/3 ML VIAL IV PRN (07:00)
[2020-06-11 07:17] LABS: Cholesterol 211 mg/dL (<200); HDL Cholesterol 79 mg/dL (40-60); LDL Cholesterol,Calculated 118 mg/dL (0-99); Triglycerides 68 mg/dL (<150)
[2020-06-11] MEDS ORDERED: ASPIRIN 81 MG PO SCH (08:00)
[2020-06-11] MEDS ORDERED: MULTIVITAMINS, THERA 1 EACH TAB PO SCH (08:00)
[2020-06-11] MEDS ORDERED: CYANOCOBALAMIN 500 MCG TAB PO SCH (08:00)
[2020-06-11] MEDS ORDERED: CHOLECALCIFEROL 1,000 UNIT TAB PO SCH (08:00)
[2020-06-11] MEDS ORDERED: polyethylene glycoL 3350 17 GM POWD.PACK PO SCH (08:00)
[2020-06-11 08:15] VITALS: TEMP 97.6
[2020-06-11] MEDS ORDERED: amLODIPine 5 MG TAB PO SCH (09:00)
[2020-06-11] MEDS ORDERED: ASPIRIN 325 MG TAB PO SCH (09:00)
--- NOTE | 2020-06-11 09:56 | ECHOF ---
Referral Reason:chest pain MEASUREMENTS -------- HEIGHT: 165.1 cm WEIGHT: 77.1 kg BP: 180/74 RVIDd: 3.2 cm (< 3.3) IVSd: 1.3 cm (0.6 - 1.1) LVIDd: 4.3 cm (3.9 - 5.3) LVPWd: 1.4 cm (0.6 - 1.1) IVSs: 1.4 cm LVIDs: 2.2 cm LVPWs: 1.5 cm LAESV Index (A-L): 33.55 ml/m Ao Diam: 2.3 cm (2.0 - 3.7) AV Cusp: 1.8 cm (1.5 - 2.6) MV EXCURSION: 15.694 mm (> 18.000) MV EF SLOPE: 60 mm/s (70 - 150) EPSS: 0.2 cm MV E Sergey: 0.84 m/s MV DecT: 290 ms MV A Sergey: 1.32 m/s MV E/A Ratio: 0.64 AV maxP.02 mmHg AV maxP.02 mmHg AV meanP.57 mmHg AR PHT: 449 ms RAP: 5.00 mmHg RVSP: 48.84 mmHg FINDINGS -------- Sinus rhythm. This was a technically adequate study. The left ventricular size is normal. There is mild concentric left ventricular hypertrophy. Overa ll left ventricular systolic function is normal with, an EF between 55 - 60 %. The diastolic fillin g pattern is normal for the age of the patient 21.07. The right ventricle is normal in size. LA is midly dilated 29-33ml/m2. The right atrial size is normal. Interatrial and interventricular septum intact. The aortic valve is trileaflet and appears structurally normal. There is mild aortic valve sclerosi s. There is mild aortic regurgitation. There is mild aortic stenosis present. Peak/mean gradien t across the Aortic Valve is 22.02mmHg / 10.57mmHg. Mild mitral regurgitation is present. Plue-to-ihmeutja tricuspid regurgitation present. There is mild to moderate pulmonary hypertension. The right ventricular systolic pressure, as measured by Doppler, is 48.84mmHg. Trace/mild (physiologic) pulmonic regurgitation. The aortic root size is normal. Normal inferior vena cava with normal inspiratory collapse consistent with estimated right atrial pre ssure of 5 mmHg. There is no pericardial effusion. CONCLUSIONS -------- 1. The left ventricular size is normal. 2. There is mild concentric left ventricular hypertrophy. 3. Overall left ventricular systolic function is normal with, an EF between 55 - 60 %. 4. The diastolic filling pattern is normal for the age of the patient 21.07 5. The right ventricle is normal in size. 6. LA is midly dilated 29-33ml/m2. 7. There is mild aortic valve sclerosis. 8. There is mild aortic regurgitation. 9. There is mild aortic stenosis present. 10. Peak/mean gradient across the Aortic Valve is 22.02mmHg / 10.57mmHg. 11. Mild mitral regurgitation is present. 12. Rqnp-ao-ydaxjbhh tricuspid regurgitation present. 13. There is mild to moderate pulmonary hypertension. 14. The right ventricular systolic pressure, as measured by Doppler, is 48.84mmHg. 15. Trace/mild (physiologic) pulmonic regurgitation. J[employer]IOR [employer]ETING ASSOCIATE: Millicent Koo RDCS
--- NOTE | 2020-06-11 10:35 | P.STRESS ---
- Stress Test Note Stress Test Results/Findings: Exam Performed: NM stress lexiscan cardiolite Exam Date: 06/11/20 Reason for Exam: CP Height: 5 ft 5 in Weight: 77.11 kg Protocol: LEXISCAN CARDIOLITE Stage: NA Duration of Exercise: NA Resting Heart Rate: 65 Resting Blood Pressure: 170 Maximum Achieved Heart Rate: 106 Maximum Achieved Blood Pressure: 155/126 85% PMHR: 122 100% PMHR: 143 METS: NA Technologist Comment: Stress Test Results/Findings: This is a 79-year-old female with history of ischemic heart disease in the family being evaluated for symptoms of chest pain and shortness of breath. Stress data: Baseline EKG showed sinus rhythm with normal TX interval and QRS duration. Blood pressure at rest is 150/68, pulse rate of 65. Patient was given standard dose of Lexiscan. EKGs taken during or after the infusion did not reveal any significant changes from the baseline. Occasional PVCs are noted. Final impression: #1. Negative Lexiscan stress test #2. Report on the nuclear images to be given by the radiologist.
[2020-06-11] MEDS: clonazePAM 0.5 MG TAB PO SCH (11:00)
--- NOTE | 2020-06-11 11:03 | NM ---
EXAMINATION TYPE: NM stress lexiscan cardiolite DATE OF EXAM: 06/11/2020 COMPARISON: NONE HISTORY: Chest pain TECHNIQUE: After the intravenous administration of 9.8 mCi Tc 99m Sestamibi - Cardiolite resting SPE CT images acquired 45 minutes post injection. The patient received 0.4mg Lexiscan, 25.5 mCi Tc 99m Sestamibi - Stress images obtained [address] injection FINDINGS: Review of stress and rest SPECT images demonstrates no distinct reversible perfusion abnormality. The re is decreased activity of the inferior wall on both stress and rest images, with wall motion dyskin esia. Estimated left ventricular ejection fraction of 83 %. TID 0.93 IMPRESSION: 1. No scintigraphic evidence for reversible ischemia. 2. Decreased fixed activity of the inferior wall with mild abnormal wall motion. Findings may represe nt scar. 3. Ejection fraction 83%.
[2020-06-11] MEDS: PRIMIDONE 50 MG TAB PO SCH (11:06)
[2020-06-11] MEDS: ISOSORBIDE MONONITRATE ER 30 MG TAB.ER.24H PO SCH (11:06)
[2020-06-11] MEDS: hydrALAZINE HCL 25 MG TAB PO SCH (11:07)
[2020-06-11] MEDS: LISINOPRIL-HCTZ 20-12.5 MG 1 EACH TAB PO SCH (11:08)
--- NOTE | 2020-06-11 12:28 | EST ---
Stress Test Results/Findings: Exam Performed: NM stress lexiscan cardiolite Exam Date: 06/11/20 Reason for Exam: CP Height: 5 ft 5 in Weight: 77.11 kg Protocol: LEXISCAN CARDIOLITE Stage: NA Duration of Exercise: NA Resting Heart Rate: 65 Resting Blood Pressure: 170 Maximum Achieved Heart Rate: 106 Maximum Achieved Blood Pressure: 155/126 85% PMHR: 122 100% PMHR: 143 METS: NA Technologist Comment: Stress Test Results/Findings: This is a 79-year-old female with history of ischemic heart disease in the family being evaluated for symptoms of chest pain and shortness of breath. Stress data: Baseline EKG showed sinus rhythm with normal TN interval and QRS duration. Blood pressure at rest is 150/68, pulse rate of 65. Patient was given standard dose of Lexiscan. EKGs taken during or after the infusion did not reveal any significant changes from the baseline. Occasional PVCs are noted. Final impression: #1. Negative Lexiscan stress test #2. Report on the nuclear images to be given by the radiologist. ARUN
--- NOTE | 2020-06-11 13:03 | P.PN ---
Subjective Progress Note Date: 06/11/20 CHIEF COMPLAINT: Chest pain HISTORY OF PRESENT ILLNESS: Patient examined this morning the bedside. She denies chest pain or pressure. She denies shortness of breath. Vital signs are stable. Echocardiogram completed revealed ejection fraction between 55 and 60%, mild mitral regurgitation, myzr-bt-vwyswsew tricuspid regurgitation, and mild to moderate pulmonary hypertension. PHYSICAL EXAM: VITAL SIGNS: Reviewed. GENERAL: Well-developed in no acute distress. HEENT: Head is normocephalic. Pupils are equal, round. Sclerae anicteric. Mucous membranes of the mouth are moist. Neck supple. No JVD or thyromegaly LUNGS: Respirations even and unlabored. Lungs essentially clear to auscultation bilaterally. HEART: Regular rate and rhythm. S1 and S2 heard. ABDOMEN: Soft. Nondistended. Nontender. EXTREMITIES: Normal range of motion. No clubbing or cyanosis. Peripheral pulses intact. No lower extremity edema. Patient with resting tremor of her upper extremities. NEUROLOGIC: Awake and alert. Oriented x 3. ASSESSMENT: Chest pain, troponins negative 3 Hypertension Osteoarthritis History of memory impairment Anxiety Depression Bipolar disorder PLAN: Patient underwent Lexiscan stress test today which was negative for reversible ischemia. She may be discharged from a cardiac standpoint. We will sign off. Please reconsult if needed. Nurse practitioner note has been reviewed by physician. Signing provider agrees with the documented findings, assessment, and plan of care. Objective - Vital Signs Vital signs: Vital Signs Temp 97.6 F 06/11/20 08:14 Pulse 69 06/11/20 09:00 Resp 16 06/11/20 08:14 BP 135/76 06/11/20 09:00 Pulse Ox 97 06/11/20 08:14 Intake & Output 06/10/20 06/11/20 06/11/20 18:59 06:59 18:59 Intake Total 240 390 Output Total 200 Balance 240 190 Weight 77.111 kg 77.11 kg Intake: Oral 240 390 Output: Urine 200 Other: Voiding Method Toilet Toilet # Voids 2 0 - Labs CBC & Chem 7: 06/10/20 08:03 06/10/20 08:03 Labs: Abnormal Lab Results - Last 24 Hours (Table) 06/11/20 Range/Units 06:38 Cholesterol 211 H (<200) mg/dL LDL Cholesterol, Calc 118 H (0-99) mg/dL HDL Cholesterol 79 H (40-60) mg/dL
[2020-06-11 13:49] VITALS: BP 104/61; PULSE 77
--- NOTE | 2020-06-11 23:23 | P.DS ---
Providers Date of admission: 06/10/20 09:23 Expected date of discharge: 06/11/20 Attending physician: Ezio Wynne Primary care physician: [facility] Course: Chief Complaint: Chest pain History of presenting complaint: This is a very pleasant 79-year-old patient of visiting physicians. Chronic stable medical conditions include GERD, hyperlipidemia, some memory impairment, osteoarthritis, urinary incontinence, cervical cancer with surgical removal, peripheral neuropathy. Bipolar disorder. Patient lives at [facility]. Does use a walker. She has a financial DPOA. Patient presents with one hour of pain across the chest. Rather constant. Did good on the right arm. No dizziness or lightheadedness. She did break out in a sweat. [place] tired and rundown. Admitted unstable angina. No fever no chills. patient's blood pressure is uncontrolled. Medication adjusted. Better controlled now. Nuclear stress test came back negative. Today-sitting up. Feeling comfortable. No chest pain. Consultation: Dr. Lopez from cardiology . Physical examination: VITAL SIGNS: 97.6, 69, 16, 135 with 76, 97% room air GENERAL: sitting up in a chair, comfortablee. EYES: Pupils equal. Conjunctiva normal. NECK: JVD not raised; masses not palpable. HEART: First and second heart sounds are normal; no edema. LUNGS: Respiratory rate normal; clear to auscultation. ABDOMEN: Soft, nontender, liver spleen not palpable, no masses palpable. MUSCULAR skeletal: Evidence of OA PSYCH: [Able to answer questions l. INVESTIGATIONS, reviewed in the clinical context: White count 6.3 hemoglobin 13.7 platelets 269 potassium 3.6 creatinine 0.71 Troponin I 3 negative EKG tracing personally reviewed by me-normal sinus rhythm Chest x-ray film personally reviewed by me-lungs thompson clear LDL 118 Assessment: -Possible unstable angina, and the patient's risk factors include hyperlipidemia, her age, postmenopausal. With negative stress test -GERD -Hyperlipidemia -Mild cognitive impairment -Primary osteoarthritis -Chronic urinary incontinence -Peripheral neuropathy cause unknown -Bipolar disorder -Chronic gait dysfunction uses a walker -Essential hypertensionwith urgency, POA disposition: Home Patient Condition at Discharge: Stable Plan - Discharge Summary Discharge Rx Participant: No New Discharge Prescriptions: New hydrALAZINE HCL [Apresoline] 25 mg PO TID #90 tab Isosorbide Mononitrate ER [Imdur] 30 mg PO DAILY #30 tab Nitroglycerin Sl Tabs [Nitrostat] 0.4 mg SUBLINGUAL Q5M PRN #25 tab PRN Reason: Angina amLODIPine [Norvasc] 5 mg PO DAILY #30 tab Lisinopril-Hctz 20-12.5 mg [Zestoretic 20-12.5] 1 tab PO BID #60 tab Continue FLUoxetine HCL [PROzac] 40 mg PO HS@1999 Multivitamin/Iron/Folic Acid [Centrum Complete Multivit Tab] 1 tab PO DAILY@0800 Cholecalciferol [Vitamin D3 (25 Mcg = 1000 Iu)] 1,000 unit PO DAILY@0800 Donepezil [Aricept] 10 mg PO HS@1999 Primidone [Mysoline] 50 mg PO BID@0800,1200 Memantine [Namenda] 5 mg PO HS@1999 Alendronate Sodium [Fosamax] 70 mg PO WE@0600 Cyanocobalamin (Vitamin B-12) [Vitamin B-12] 1,000 mcg PO DAILY@0800 Aspirin EC [Ecotrin Low Dose] 81 mg PO DAILY@0800 clonazePAM 0.5 mg PO BID@08,1999 Docusate [Colace] 100 mg PO HS PRN PRN Reason: Constipation FLUoxetine HCL [PROzac] 10 mg PO HS@1999 Polyethylene Glycol 3350 [Miralax] 17 gm PO DAILY@0800 traZODone HCL 100 mg PO HS@1999 Meloxicam [Mobic] 7.5 mg PO BID@0600,1800 Discontinued hydrALAZINE HCL 10 mg PO QID captopriL [Captopril] 25 mg PO BID PRN PRN Reason: systolic bp 170 or greater Discharge Medication List FLUoxetine HCL [PROzac] 40 mg PO HS@199912/14/14 [History] Multivitamin/Iron/Folic Acid [Centrum Complete Multivit Tab] 1 tab PO DAILY@0800 12/14/14 [History] Cholecalciferol [Vitamin D3 (25 Mcg = 1000 Iu)] 1,000 unit PO DAILY@0800 12/23/14 [History] Donepezil [Aricept] 10 mg PO HS@199912/23/14 [History] Memantine [Namenda] 5 mg PO HS@199901/24/16 [History] Primidone [Mysoline] 50 mg PO BID@0800,1200 01/24/16 [History] Alendronate Sodium [Fosamax] 70 mg PO WE@0600 09/04/16 [History] Cyanocobalamin (Vitamin B-12) [Vitamin B-12] 1,000 mcg PO DAILY@0800 12/29/16 [History] Aspirin EC [Ecotrin Low Dose] 81 mg PO DAILY@0800 03/03/19 [History] Docusate [Colace] 100 mg PO HS PRN 06/10/20 [History] FLUoxetine HCL [PROzac] 10 mg PO HS@199906/10/20 [History] Meloxicam [Mobic] 7.5 mg PO BID@0600,1800 06/10/20 [History] Polyethylene Glycol 3350 [Miralax] 17 gm PO DAILY@0800 06/10/20 [History] clonazePAM 0.5 mg PO BID@0800,199906/10/20 [History] traZODone HCL 100 mg PO HS@199906/10/20 [History] Isosorbide Mononitrate ER [Imdur] 30 mg PO DAILY #30 tab 06/11/20 [Rx] Lisinopril-Hctz 20-12.5 mg [Zestoretic 20-12.5] 1 tab PO BID #60 tab 06/11/20 [Rx] Nitroglycerin Sl Tabs [Nitrostat] 0.4 mg SUBLINGUAL Q5M PRN #25 tab 06/11/20 [Rx] amLODIPine [Norvasc] 5 mg PO DAILY #30 tab 06/11/20 [Rx] hydrALAZINE HCL [Apresoline] 25 mg PO TID #90 tab 06/11/20 [Rx] Follow up Appointment(s)/Referral(s): Iraj Paredes MD [Primary Care Provider] - 06/14/20 (phone visit) Ana Lopez MD [STAFF PHYSICIAN] - 06/22/20 4:15 pm [facility] Visiting Nurse, [NON-STAFF] - 1-2 Days Patient Instructions/Handouts: Chest Pain (GEN), Hypertension (GEN) Discharge Disposition: HOME SELF-CARE
== END 2020-06-11 15:00 | disposition home or self-care (01) ==
LOC: EC 07:42 → 3NCARDOBS 09:23
PROVIDERS: ADMIT Hospitalist; ATTEND Hospitalist
DX: R07.9 Chest pain, unspecified (principal); E78.5 Hyperlipidemia, unspecified; F03.90 Unspecified dementia, unspecified severity, without behavioral disturbance, psychotic disturbance, mood disturbance, and anxiety; F31.9 Bipolar disorder, unspecified; F41.9 Anxiety disorder, unspecified; G62.9 Polyneuropathy, unspecified; I10 Essential (primary) hypertension; I27.20 Pulmonary hypertension, unspecified; K21.9 Gastro-esophageal reflux disease without esophagitis; M19.91 Primary osteoarthritis, unspecified site; R32 Unspecified urinary incontinence; Z79.1 Long term (current) use of non-steroidal anti-inflammatories (NSAID); Z79.82 Long term (current) use of aspirin; Z79.83 Long term (current) use of bisphosphonates; Z82.49 Family history of ischemic heart disease and other diseases of the circulatory system; Z85.41 Personal history of malignant neoplasm of cervix uteri; Z87.891 Personal history of nicotine dependence; Z96.643 Presence of artificial hip joint, bilateral; Z96.651 Presence of right artificial knee joint; R26.9 Unspecified abnormalities of gait and mobility
CPT/HCPCS: 93005 ×2; 99285; 36415; 93017; 93306; 97161; 85379; 80061; 80053; 82150; 83690; 83735; 84484; 85025; 85610; 85730; 71046; 78452; G0378 ×2; A9500; J2785

== ENCOUNTER 2021-02-04 20:25 | Observation (INO) | payer MEDICARE ==
[2021-02-04] MEDS ORDERED: SODIUM CHLORIDE 0.9% 500 ML 500 ML IV STA ×2 (20:54→23:02)
[2021-02-04] MEDS ORDERED: diphenhydrAMINE 50 MG/ML 1 ML VIAL IVP STA (20:54)
--- NOTE | 2021-02-04 21:01 | ED ---
Nausea/Vomiting/Diarrhea HPI - General Stated complaint: NVD Source: patient, RN notes reviewed, old records reviewed Limitations: no limitations - History of Present Illness Initial comments: 80-year-old white female, alert and oriented 4, presents to the emergency room via EMS with complaints of nausea and vomiting that started last night. Patient states that she had 5 episodes of diarrhea yesterday with 3 episodes of vomi ting, today she's had 2 episodes of diarrhea and one episode of vomiting. Describes the vomiting as fluid in the stool as watery and brown. Denies any medications yet or hematemesis. Patient states that the symptoms started after supper last night when she tried to have some soup. She tried shrimp today and then had another episode of vomiting. Patient's blood pressure was elevated at the [facility], [place] and was given captopril 25 mg at 1949. Patient is tremulous and states that she just feels sick. She states that her urine did have some blood in it a couple of days ago. She is denying chest pain, shortness of breath, back pain or abdominal pain at this time. Per patient and medical record, she has history of osteoarthritis, hypertension, GERD, urinary incontinence, peripheral neuropathy, bipolar disorder, depression, cervical cancer with removal and anxiety. She has multiple surgical history of hips and ankle fractures. MD complaint: nausea, vomiting, diarrhea -: days(s) (2) Description of Vomiting: food contents Description of Diarrhea: water Associated Abdominal Pain: No Radiation: none Severity scale (1-10): 0 Consistency: now resolved Improves with: medication (zofran by EMS) Worsens with: eating Associated Symptoms: denies other symptoms - Related Data Home Medications Medication Instructions Recorded Confirmed FLUoxetine HCL [PROzac] 40 mg PO HS@199912/14/14 02/04/21 Multivitamin/Iron/Folic Acid 1 tab PO DAILY@0812/14/14 02/04/21 [Centrum Complete Multivit Tab] Cholecalciferol [Vitamin D3 (25 1,000 unit PO DAILY@0800 12/23/14 02/04/21 Mcg = 1000 Iu)] Memantine [Namenda] 5 mg PO HS@199901/24/16 02/04/21 Primidone [Mysoline] 50 mg PO BID@0800,1200 01/24/16 02/04/21 Alendronate Sodium [Fosamax] 70 mg PO WE@0600 09/04/16 02/04/21 Cyanocobalamin (Vitamin B-12) 1,000 mcg PO DAILY@0800 12/29/16 02/04/21 [Vitamin B-12] Aspirin EC [Ecotrin Low Dose] 81 mg PO DAILY@0800 03/03/19 02/04/21 Docusate [Colace] 100 mg PO HS PRN 06/10/20 02/04/21 FLUoxetine HCL [PROzac] 10 mg PO HS@199906/10/20 02/04/21 Meloxicam [Mobic] 7.5 mg PO BID@0600,1800 06/10/20 02/04/21 Polyethylene Glycol 3350 [Miralax] 17 gm PO DAILY@0800 06/10/20 02/04/21 clonazePAM 0.5 mg PO BID@0800,199906/10/20 02/04/21 traZODone HCL 100 mg PO HS@199906/10/20 02/04/21 ALPRAZolam [Xanax] 0.25 mg PO BID PRN 02/04/21 02/04/21 Diclofenac Sodium Gel [Voltaren 4 gm TOPICAL QID 02/04/21 02/04/21 Gel] Isosorbide Mononitrate ER [Imdur] 30 mg PO HS@199902/04/21 02/04/21 Loratadine [Claritin] 10 mg PO DAILY@0800 02/04/21 02/04/21 Omeprazole 20 mg PO DAILY@149902/04/21 02/04/21 Propylene Glycol/Peg 400 [Systane 1 drop BOTH EYES TID@0800,1599,199902/04/21 02/04/21 Ultra 0.4-0.3% Eye Drp] QUEtiapine [SEROquel] 25 mg PO HS@199902/04/21 02/04/21 Sodium Chloride 0.65% Nasal [Deep 2 spray NASAL DAILY PRN 02/04/21 02/04/21 Sea (Saline)] Vit C/E/Zn/Coppr/Lutein/Zeaxan 1 cap PO Q12H 02/04/21 02/04/21 [Preservision Areds 2 Softgel] busPIRone HCL [Buspar] 7.5 mg PO BID@0800,199902/04/21 02/04/21 captopriL [Capoten] 25 mg PO BID PRN 02/04/21 02/04/21 hydrALAZINE HCL [Apresoline] 50 mg PO QID 02/04/21 02/04/21 Previous Rx's Medication Instructions Recorded Nitroglycerin Sl Tabs [Nitrostat] 0.4 mg SUBLINGUAL Q5M PRN #25 tab 06/11/20 Allergies Allergy/AdvReac Type Severity Reaction Status Date / Time lorazepam [From Ativan] Allergy Hallucinati Verified 02/04/21 21:00 ons pneumococcal vaccine Allergy Swelling Verified 02/04/21 21:00 Review of Systems ROS Statement: Those systems with pertinent positive or pertinent negative responses have been documented in the HPI. ROS Other: All systems not noted in ROS Statement are negative. Past Medical History Past Medical History: Cancer, GERD/Reflux, Hyperlipidemia, Memory Impairment, Osteoarthritis (OA), Skin Disorder Additional Past Medical History / Comment(s): Mild dementia, arthritis in multiple joints, urine incontinence, UTIs, cervical cancer with surgical removal, cystic acne as a youg person, neuropathy bilateral hands/feet History of Any Multi-Drug Resistant Organisms: None Reported Past Surgical History: Adenoidectomy, Joint Replacement, Orthopedic Surgery, To nsillectomy, Tubal Ligation Additional Past Surgical History / Comment(s): 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 Past Anesthesia/Blood Transfusion Reactions: No Reported Reaction, Family History of Problems w/ Anesthesia Additional Past Anesthesia/Blood Transfusion Reaction / Comment(s): "father had problem w/spinal & was paralyzed per pt." Past Psychological History: Anxiety, Bipolar, Depression Additional Psychological History / Comment(s): Pt [facility]. She ambulates with a walker. She states she makes her own medical decisions, but has a financial DPOA named Anuja Randall. Pt states she showers and dresses herself. She goes to the dining room for meals and staff manage her medications. Smoking Status: Never smoker Past Alcohol Use History: Rare Additional Past Alcohol Use History / Comment(s): Pt started smoking in her 50's only smoked x 1 month then quit, occ glass of wine at holidays or if someone visits Past Drug Use History: None Reported - Past Family History Father Family Medical History: Hypertension Additional Family Medical History / Comment(s): open heart surgery, paralyzed by spinal Mother Family Medical History: Dementia General Exam Limitations: no limitations General appearance: alert, in no apparent distress Head exam: Present: atraumatic, normocephalic, normal inspection Eye exam: Present: normal appearance, PERRL, EOMI. Absent: scleral icterus, conjunctival injection, periorbital swelling Pupils: Present: normal accommodation ENT exam: Present: normal exam, normal oropharynx, mucous membranes moist Neck exam: Present: normal inspection, full ROM. Absent: tenderness, meningismus, lymphadenopathy, thyromegaly Respiratory exam: Present: normal lung sounds bilaterally. Absent: respiratory distress, wheezes, rales, rhonchi, stridor, chest wall tenderness, accessory muscle use, decreased breath sounds Cardiovascular Exam: Present: regular rate, normal rhythm, normal heart sounds. Absent: systolic murmur, diastolic murmur, rubs, gallop, clicks GI/Abdominal exam: Present: soft, normal bowel sounds. Absent: distended, tenderness, guarding, rebound, rigid, mass Extremities exam: Present: normal inspection, full ROM, normal capillary refill. Absent: tenderness, pedal edema, joint swelling, calf tenderness Back exam: Present: normal inspection, full ROM. Absent: tenderness, CVA tenderness (L), muscle spasm, paraspinal tenderness, vertebral tenderness Neurological exam: Present: alert, oriented X3, CN II-XII intact Psychiatric exam: Present: anxious Skin exam: Present: warm, dry, intact, normal color. Absent: rash, cyanosis, diaphoretic, erythema, urticaria, petechiae, pallor, mottled, abrasion Course Vital Signs 02/04/21 02/04/21 02/04/21 20:54 21:15 22:04 Temperature 98.6 F Pulse Rate 80 79 64 Respiratory 18 17 16 Rate Blood Pressure 173/153 157/65 111/57 O2 Sat by Pulse 100 100 98 Oximetry 02/04/21 02/04/21 22:10 22:46 Temperature Pulse Rate 71 79 Respiratory 17 18 Rate Blood Pressure 165/104 96/69 O2 Sat by Pulse 99 99 Oximetry - Reevaluation(s) Reevaluation #1: 02/04/21 22:05 Blood pressure 111/57, patient's tremors at diminished but remained. Patient states that she is incontinent of urine but she feels the sensation and that is normal for her, she is wearing a depends. Time: 22:05 Medical Decision Making - Medical Decision Making EKG shows a new prolonged QTc at 0.639 compared to however patient is on fluoxetine, trazodone, clonazepam, alprazolam, and memantine. Hemoglobin and hematocrit is stable at 12 and 36 respectively, WBC count is 4.3. Potassium is 3.3 which was supplemented with 20meq of Kdur. KUB x-ray shows no obstruction, no pneumoperitoneum, no abnormal calcifications and no obstruction. There is bilateral hip prosthesis intact. UA is positive for WBCs, nitrates, leukocyte esterase, and bacteria. Patient will be admitted for weakness, UTI and d ehydration. Case discussed with Dr. Ortiz. - Lab Data Result diagrams: 02/04/21 21:00 02/04/21 21:00 Lab Results 02/04/21 02/04/21 02/04/21 Range/Units 21:00 21:00 21:00 WBC 4.5 (3.8-10.6) k/uL RBC 3.85 (3.80-5.40) m/uL Hgb 12.1 (11.4-16.0) gm/dL Hct 36.4 (34.0-46.0) % MCV 94.5 (80.0-100.0) fL MCH 31.4 (25.0-35.0) pg MCHC 33.3 (31.0-37.0) g/dL RDW 14.0 (11.5-15.5) % Plt Count 181 (150-450) k/uL MPV 8.5 Neutrophils % 77 % Lymphocytes % 15 % Monocytes % 5 % Eosinophils % 0 % Basophils % 0 % Neutrophils # 3.5 (1.3-7.7) k/uL Lymphocytes # 0.7 L (1.0-4.8) k/uL Monocytes # 0.2 (0-1.0) k/uL Eosinophils # 0.0 (0-0.7) k/uL Basophils # 0.0 (0-0.2) k/uL Sodium 139 (137-145) mmol/L Potassium 3.3 L (3.5-5.1) mmol/L Chloride 108 H (98-107) mmol/L Carbon Dioxide 20 L (22-30) mmol/L Anion Gap 11 mmol/L BUN 15 (7-17) mg/dL Creatinine 0.54 (0.52-1.04) mg/dL Est GFR (CKD-EPI)AfAm >90 (>60 ml/min/1.73 sqM) Est GFR (CKD-EPI)NonAf >90 (>60 ml/min/1.73 sqM) Glucose 115 H (74-99) mg/dL Calcium 9.2 (8.4-10.2) mg/dL Total Bilirubin 0.4 (0.2-1.3) mg/dL AST 29 (14-36) U/L ALT 24 (4-34) U/L Alkaline Phosphatase 82 (38-126) U/L Total Protein 6.5 (6.3-8.2) g/dL Albumin 3.9 (3.5-5.0) g/dL Amylase 76 (30-110) U/L Lipase 165 (23-300) U/L Urine Color Yellow Urine Appearance Cloudy H (Clear) Urine pH 7.0 (5.0-8.0) Ur Specific [place] 1.009 (1.001-1.035) Urine Protein Negative (Negative) Urine Glucose (UA) Negative (Negative) Urine Ketones 2+ H (Negative) Urine Blood Negative (Negative) Urine Nitrite Positive H (Negative) Urine Bilirubin Negative (Negative) Urine Urobilinogen <2.0 (<2.0) mg/dL Ur Leukocyte Esterase Moderate H (Negative) Urine RBC 1 (0-5) /hpf Urine WBC 26 H (0-5) /hpf Ur Squamous Epith Cells <1 (0-4) /hpf Urine Bacteria Occasional H (None) /hpf Urine Mucus Rare H (None) /hpf - EKG Data EKG shows normal: sinus rhythm, intervals (Ventricular rate of 99, AK interval o f 0.174, QRS of 0.60, QTC of 0.69; poor quality EKG with significant artifact) When compared to previous EKG there are: other (Previous QTc interval on 06/10/2020 was 0.421) Disposition Clinical Impression: Weakness, Urinary tract infection Disposition: ADMITTED IP TO THIS HOSP Condition: Fair Decision Date: 02/04/21 Decision Time: 23:08
[2021-02-04 21:18] LABS: Basophils % (A) 0 %; Eosinophils % (A) 0 %; HCT 36.4 % (34.0-46.0); HGB 12.1 gm/dL (11.4-16.0); Lymphocytes # (A) 0.7 k/uL (1.0-4.8); Lymphocytes % (A) 15 %; MCH 31.4 pg (25.0-35.0); MCHC 33.3 g/dL (31.0-37.0); MCV 94.5 fL (80.0-100.0); Mean Platelet Volume 8.5; Monocytes # (A) 0.2 k/uL (0-1.0); Monocytes % (A) 5 %; Neutrophils # (A) 3.5 k/uL (1.3-7.7); Neutrophils % (A) 77 %; Platelet Count 181 k/uL (150-450); RBC 3.85 m/uL (3.80-5.40); WBC 4.5 k/uL (3.8-10.6)
[2021-02-04] MEDS ORDERED: hydrALAZINE HCL 20 MG/ML 1 ML VIAL IVP STA (21:42)
[2021-02-04 21:43] LABS: ALT 24 U/L (4-34); AST 29 U/L (14-36); African American GFR (CKD) >90 (>60 ml/min/1.73 sqM); Albumin 3.9 g/dL (3.5-5.0); Alkaline Phosphatase 82 U/L (38-126); Amylase 76 U/L (30-110); Anion Gap 11 mmol/L; Blood Urea Nitrogen 15 mg/dL (7-17); Calcium 9.2 mg/dL (8.4-10.2); Carbon Dioxide 20 mmol/L (22-30); Chloride 108 mmol/L (98-107); Glucose 115 mg/dL (74-99); Lipase 165 U/L (23-300); Non-African American GFR(CKD) >90 (>60 ml/min/1.73 sqM); Potassium 3.3 mmol/L (3.5-5.1); Sodium 139 mmol/L (137-145); Total Bilirubin 0.4 mg/dL (0.2-1.3); Total Protein 6.5 g/dL (6.3-8.2)
--- NOTE | 2021-02-04 21:46 | XR ---
EXAMINATION TYPE: XR KUB DATE OF EXAM: 02/04/2021 COMPARISON: 12/23/2014 HISTORY: Abdominal pain TECHNIQUE: 2 views supine FINDINGS: Bowel gas pattern is normal. There is no sign of intestinal obstruction or pneumoperitoneum . Fecal pattern is normal. There is no evidence of a mass. There is bilateral hip prosthesis. There a re no pathologic calcifications over the kidneys. IMPRESSION: Nonacute abdomen. No change.
[2021-02-04] MEDS ORDERED: POTASSIUM CHLORIDE ER 20 MEQ TAB.ER PO STA (21:57)
[2021-02-04 22:45] LABS: Appearance,Urine Cloudy (Clear); Bacteria,Urine Occasional /hpf; Bilirubin,Urine Negative (Negative); Blood,Urine Negative (Negative); Color,Urine Yellow; Glucose,Urine (UA) Negative (Negative); Ketones,Urine 2+ (Negative); Leukocyte Esterase,Urine Moderate (Negative); Mucus,Urine Rare /hpf; Nitrite,Urine Positive (Negative); Protein,Urine Negative (Negative); RBC,Urine 1 /hpf (0-5); Specific Gravity,Urine 1.009 (1.001-1.035); Squamous Epithelial Cell,Urine <1 /hpf (0-4); Urobilinogen,Urine <2.0 mg/dL (<2.0); WBC,Urine 26 /hpf (0-5)
[2021-02-04] MEDS ORDERED: SODIUM CHLORIDE 0.9% 1,000 ML IV STA (23:02)
[2021-02-04] MEDS ORDERED: ACETAMINOPHEN TAB 325 MG TAB PO PRN (23:05)
[2021-02-04] MEDS ORDERED: NALOXONE 0.4 MG/ML 1 ML VIAL IV PRN (23:05)
[2021-02-04] MEDS ORDERED: SODIUM CHLORIDE 0.9% 1,000 ML IV SCH (23:15)
[2021-02-05 07:39] LABS: ALT 20 U/L (4-34); AST 23 U/L (14-36); African American GFR (CKD) >90 (>60 ml/min/1.73 sqM); Albumin/Globulin Ratio 1.3; Alkaline Phosphatase 57 U/L (38-126); Anion Gap 6 mmol/L; Blood Urea Nitrogen 11 mg/dL (7-17); Calcium 8.2 mg/dL (8.4-10.2); Carbon Dioxide 22 mmol/L (22-30); Chloride 112 mmol/L (98-107); Globulin 2.3 g/dL; Glucose 92 mg/dL (74-99); Magnesium 1.7 mg/dL (1.6-2.3); Non-African American GFR(CKD) 89 (>60 ml/min/1.73 sqM); Potassium 3.4 mmol/L (3.5-5.1); Sodium 140 mmol/L (137-145); Total Bilirubin 0.2 mg/dL (0.2-1.3); Total Protein 5.3 g/dL (6.3-8.2)
[2021-02-05] MEDS ORDERED: NITROGLYCERIN SL TABS 0.4 MG TAB SUBLINGUAL PRN (10:44)
[2021-02-05] MEDS ORDERED: ALPRAZolam 0.25 MG TAB PO PRN (10:44)
[2021-02-05] MEDS ORDERED: SODIUM CHLORIDE 0.65% NASAL SPRAY 44 ML BTL NASAL PRN (10:44)
[2021-02-05] MEDS: DICLOFENAC SODIUM GEL 100 GM TUBE TOPICAL SCH ×3 (12:47→21:21)
[2021-02-05] MEDS: clonazePAM 0.5 MG TAB PO SCH ×2 (12:48→21:29)
[2021-02-05] MEDS: PRIMIDONE 50 MG TAB PO SCH (12:48)
[2021-02-05] MEDS: busPIRone HCl 5 MG TAB PO SCH ×2 (12:48→21:29)
[2021-02-05] MEDS: ASPIRIN 81 MG PO SCH (12:48)
[2021-02-05] MEDS: VIT A,C & E-LUTEIN-MINERALS 1 EACH TAB PO SCH ×2 (12:48→21:23)
[2021-02-05] MEDS: ARTIFICIAL TEARS-HYPROMELLOSE DROPS 15 ML BTL BOTH EYES SCH ×3 (12:49→21:25)
[2021-02-05] MEDS: hydrALAZINE HCL 50 MG TAB PO SCH ×3 (12:54→21:23)
[2021-02-05 13:03] VITALS: BMI 23.4
[2021-02-05] MEDS: LACTATED RINGERS 1,000 ML IV SCH (14:21)
[2021-02-05] MEDS ORDERED: PANTOPRAZOLE 40 MG TABLET PO SCH (15:00)
--- NOTE | 2021-02-05 17:52 | P.HPIM ---
History of Present Illness H&P Date: 02/05/21 Chief Complaint: Vomiting diarrhea History of presenting complaint: This is a very pleasant 80-year-old patient of visiting physicians, Dr. Paredes. Chronic stable medical conditions include GERD, hyperlipidemia, some memory impairment, osteoarthritis, urinary incontinence, cervical cancer with surgical removal, peripheral neuropathy. Bipolar disorder.lives at [facility]. Does use a walker. She has a financial DPOA. 2 days patient started having vomiting diarrhea. Some chills and perspiration. No obvious fever. Nobody else was sick at her place. Last diarrhea and vomiting was yesterday evening. Started IV fluids here. Feeling better this morning. Patient is set at the bedside. Patient also noticed some blood in the urine and was having painful urination. Was found to have a UTI and given IV ceftriaxone. Did eat some breakfast this morning. Review of systems: GEN.: Chills perspiration EYES: None HEENT: None NECK: None RESPIRATORY: None CARDIOVASCULAR: As above GASTROINTESTINAL: None GENITOURINARY: As above MUSCULOSKELETAL: Joint pains LYMPHATICS: None HEMATOLOGICAL: None PSYCHIATRY: A bit forgetful NEUROLOGICAL: Does use a walker Past medical history to include: GERD, hyperlipidemia, memory impairment, osteoarthritis, urinary incontinence, cervical cancer with surgery, peripheral neuropathy, bipolar disorder, does use a walker Social history: Lives at [facility]. Does use a walker. Has a financial DPOAE. Alcohol rarely. Does not smoke. Physical examination: VITAL SIGNS: 98.2, 68, 18, 120/69, 96% room air GENERAL: BMI 23.5, laying in bed, awake EYES: Pupils equal. Conjunctiva normal. HEENT: External appearance of nose and ears normal, oral cavity grossly normal. NECK: JVD not raised; masses not palpable. HEART: First and second heart sounds are normal; no edema. LUNGS: Respiratory rate normal; clear to auscultation. ABDOMEN: Soft, nontender, liver spleen not palpable, no masses palpable. MUSCULAR skeletal: Evidence of OA PSYCH: Able to answer questions appropriately. Mood and affect normal NEUROLOGICAL: Cranial nerves grossly intact; no facial asymmetry, power and sensation grossly intact. LYMPHATICS: No lymph nodes palpable in the axilla and neck INVESTIGATIONS, reviewed in the clinical context: WBC 4.5 hemoglobin 12.1 platelets 181 potassium 3.4 creatinine 0.57 UA positive for nitrite, leukoesterase, WBC Assessment and plan: -Acute UTI with cystitis Started on IV ceftriaxone -Acute viral gastroenteritis, self-limiting Improving. IV fluids. -Chronic stable angina, Continue nitrates, aspirin -GERD Omeprazole -Hyperlipidemia -Mild cognitive impairment On Namenda -Primary osteoarthritis Use the medications as needed -Chronic urinary incontinence Depends -Peripheral neuropathy cause unknown -Bipolar disorder On trazodone, Klonopin, BuSpar, Seroquel, Prozac -Chronic gait dysfunction uses a walker Fall precautions -Essential hypertension Hydralazine, Capoten, IV fluids. Soft bland diet. IV ceftriaxone. Urine culture pending. Care was discussed with the patient's son at the bedside. Increase activity as tolerated. Past Medical History Past Medical History: Cancer, GERD/Reflux, Hyperlipidemia, Memory Impairment, Osteoarthritis (OA), Skin Disorder Additional Past Medical History / Comment(s): Mild dementia, arthritis in multiple joints, urine incontinence, UTIs, cervical cancer with surgical removal, cystic acne as a youg person, neuropathy bilateral hands/feet History of Any Multi-Drug Resistant Organisms: None Reported Past Surgical History: Adenoidectomy, Joint Replacement, Orthopedic Surgery, Tonsillectomy, Tubal Ligation Additional Past Surgical History / Comment(s): 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 Past Anesthesia/Blood Transfusion Reactions: No Reported Reaction, Family History of Problems w/ Anesthesia Additional Past Anesthesia/Blood Transfusion Reaction / Comment(s): "father had problem w/spinal & was paralyzed per pt." Past Psychological History: Anxiety, Bipolar, Depression Additional Psychological History / Comment(s): [facility]. She ambulates with a walker. She states she makes her own medical decisions, but has a financial DPOA named Anuja Randall. Pt states she showers and dresses herself. She goes to the dining room for meals and staff manage her medications. Smoking Status: Never smoker Past Alcohol Use History: Rare Additional Past Alcohol Use History / Comment(s): Pt started smoking in her 50's only smoked x 1 month then quit, occ glass of wine at holidays or if someone vi sits Past Drug Use History: None Reported - Past Family History Father Family Medical History: Hypertension Additional Family Medical History / Comment(s): open heart surgery, paralyzed by spinal. Pt states paralyzed from shot in this hospital. Mother Family Medical History: Dementia Medications and Allergies Home Medications Medication Instructions Recorded Confirmed Type FLUoxetine HCL [PROzac] 40 mg PO HS@199912/14/14 02/04/21 History Multivitamin/Iron/Folic Acid 1 tab PO DAILY@0800 12/14/14 02/04/21 History [Centrum Complete Multivit Tab] Cholecalciferol [Vitamin D3 (25 1,000 unit PO DAILY@0800 12/23/14 02/04/21 History Mcg = 1000 Iu)] Memantine [Namenda] 5 mg PO HS@199901/24/16 02/04/21 History Primidone [Mysoline] 50 mg PO BID@0800,1200 01/24/16 02/04/21 History Alendronate Sodium [Fosamax] 70 mg PO WE@59909/04/16 02/04/21 History Cyanocobalamin (Vitamin B-12) 1,000 mcg PO DAILY@0800 12/29/16 02/04/21 History [Vitamin B-12] Aspirin EC [Ecotrin Low Dose] 81 mg PO DAILY@0800 03/03/19 02/04/21 History Docusate [Colace] 100 mg PO HS PRN 06/10/20 02/04/21 History FLUoxetine HCL [PROzac] 10 mg PO HS@199906/10/20 02/04/21 History Meloxicam [Mobic] 7.5 mg PO BID@0600,1800 06/10/20 02/04/21 History Polyethylene Glycol 3350 [Miralax] 17 gm PO DAILY@0800 06/10/20 02/04/21 History clonazePAM 0.5 mg PO BID@08,199906/10/20 02/04/21 History traZODone HCL 100 mg PO HS@199906/10/20 02/04/21 History Nitroglycerin Sl Tabs [Nitrostat] 0.4 mg SUBLINGUAL Q5M PRN #25 tab 06/11/20 02/04/21 Rx ALPRAZolam [Xanax] 0.25 mg PO BID PRN 02/04/21 02/04/21 History Diclofenac Sodium Gel [Voltaren 4 gm TOPICAL QID 02/04/21 02/04/21 History Gel] Isosorbide Mononitrate ER [Imdur] 30 mg PO HS@199902/04/21 02/04/21 History Loratadine [Claritin] 10 mg PO DAILY@0800 02/04/21 02/04/21 History Omeprazole 20 mg PO DAILY@1500 02/04/21 02/04/21 History Propylene Glycol/Peg 400 [Systane 1 drop BOTH EYES TID@0800,1600,199902/04/21 02/04/21 History Ultra 0.4-0.3% Eye Drp] QUEtiapine [SEROquel] 25 mg PO HS@199902/04/21 02/04/21 History Sodium Chloride 0.65% Nasal [Deep 2 spray NASAL DAILY PRN 02/04/21 02/04/21 History Sea (Saline)] Vit C/E/Zn/Coppr/Lutein/Zeaxan 1 cap PO Q12H 02/04/21 02/04/21 History [Preservision Areds 2 Softgel] busPIRone HCL [Buspar] 7.5 mg PO BID@08,199902/04/21 02/04/21 History captopriL [Capoten] 25 mg PO BID PRN 02/04/21 02/04/21 History hydrALAZINE HCL [Apresoline] 50 mg PO QID 02/04/21 02/04/21 History Allergies Allergy/AdvReac Type Severity Reaction Status Date / Time lorazepam [From Ativan] Allergy Hallucinati Verified 02/04/21 21:00 ons pneumococcal vaccine Allergy Swelling Verified 02/04/21 21:00 Physical Exam Vitals: Vital Signs Temp Pulse Pulse Resp BP BP Pulse Ox 02/05/21 05:19 99.5 F 64 16 127/68 97 02/05/21 01:06 98 F 64 16 116/69 99 02/05/21 00:00 71 17 117/61 99 02/04/21 22:46 79 18 96/69 99 02/04/21 22:10 71 17 165/104 99 02/04/21 22:04 64 16 111/57 98 02/04/21 21:15 79 17 157/65 100 02/04/21 20:54 98.6 F 80 18 173/153 100 Intake and Output 02/04/21 02/05/21 02/05/21 22:59 06:59 14:59 Other: Voiding Method Toilet # Voids 2 Weight 64 kg 64 kg Results CBC & Chem 7: 02/04/21 21:00 02/05/21 06:43 Labs: Abnormal Lab Results - Last 24 Hours (Table) 02/04/21 02/04/21 02/04/21 Range/Units 21:00 21:00 21:00 Lymphocytes # 0.7 L (1.0-4.8) k/uL Potassium 3.3 L (3.5-5.1) mmol/L Chloride 108 H (98-107) mmol/L Carbon Dioxide 20 L (22-30) mmol/L Glucose 115 H (74-99) mg/dL Calcium (8.4-10.2) mg/dL Total Protein (6.3-8.2) g/dL Albumin (3.5-5.0) g/dL Urine Appearance Cloudy H (Clear) Urine Ketones 2+ H (Negative) Urine Nitrite Positive H (Negative) Ur Leukocyte Esterase Moderate H (Negative) Urine WBC 26 H (0-5) /hpf Urine Bacteria Occasional H (None) /hpf Urine Mucus Rare H (None) /hpf 02/05/21 Range/Units 06:43 Lymphocytes # (1.0-4.8) k/uL Potassium 3.4 L (3.5-5.1) mmol/L Chloride 112 H (98-107) mmol/L Carbon Dioxide (22-30) mmol/L Glucose (74-99) mg/dL Calcium 8.2 L (8.4-10.2) mg/dL Total Protein 5.3 L (6.3-8.2) g/dL Albumin 3.0 L (3.5-5.0) g/dL Urine Appearance (Clear) Urine Ketones (Negative) Urine Nitrite (Negative) Ur Leukocyte Esterase (Negative) Urine WBC (0-5) /hpf Urine Bacteria (None) /hpf Urine Mucus (None) /hpf Thrombosis Risk Factor Assmnt - Choose All That Apply Each Risk Factor Represents 3 Points: Age 75 years or older Thrombosis Risk Factor Assessment Total Risk Factor Score: 3 Thrombosis Risk Factor Assessment Level: Moderate Risk
[2021-02-05] MEDS ORDERED: traZODone HCL 100 MG TAB PO SCH (20:00)
[2021-02-05] MEDS ORDERED: FLUoxetine HCL 20 MG CAP PO SCH (20:00)
[2021-02-05] MEDS ORDERED: QUEtiapine 25 MG TAB PO SCH (20:00)
[2021-02-05] MEDS ORDERED: ISOSORBIDE MONONITRATE ER 30 MG TAB.ER.24H PO SCH (20:00)
[2021-02-05] MEDS ORDERED: MEMANTINE 5 MG TAB PO SCH (20:00)
[2021-02-05] MEDS ORDERED: FLUoxetine HCL 10 MG CAP PO SCH (20:00)
[2021-02-06] MEDS: LACTATED RINGERS 1,000 ML IV SCH (06:11)
[2021-02-06] MEDS: ARTIFICIAL TEARS-HYPROMELLOSE DROPS 15 ML BTL BOTH EYES SCH (07:25)
[2021-02-06] MEDS: busPIRone HCl 5 MG TAB PO SCH (07:26)
[2021-02-06] MEDS: ASPIRIN 81 MG PO SCH (07:26)
[2021-02-06] MEDS: clonazePAM 0.5 MG TAB PO SCH (07:27)
[2021-02-06] MEDS: PRIMIDONE 50 MG TAB PO SCH (07:27)
[2021-02-06] MEDS: VIT A,C & E-LUTEIN-MINERALS 1 EACH TAB PO SCH (07:29)
[2021-02-06] MEDS: hydrALAZINE HCL 50 MG TAB PO SCH ×2 (07:29→12:12)
[2021-02-06 07:30] VITALS: RESP 18
[2021-02-06 07:57] VITALS: BP 169/73; PULSE 66; TEMP 97.8
[2021-02-06] MEDS ORDERED: CYANOCOBALAMIN 500 MCG TAB PO SCH (08:00)
[2021-02-06] MEDS: DICLOFENAC SODIUM GEL 100 GM TUBE TOPICAL SCH ×2 (08:26→12:12)
--- NOTE | 2021-02-06 15:51 | P.DS ---
Providers Date of admission: 02/04/21 23:02 Expected date of discharge: 02/06/21 Attending physician: Ezio Wynne Primary care physician: Iraj Paredes [facility] Course: Chief Complaint: Vomiting diarrhea History of presenting complaint: This is a very pleasant 80-year-old patient of visiting physicians, Dr. Paredes. Chronic stable medical conditions include GERD, hyperlipidemia, some memory impairment, osteoarthritis, urinary incontinence, cervical cancer with surgical removal, peripheral neuropathy. Bipolar disorder.lives at [facility]. Does use a walker. She has a financial DPOA. 2 days patient started having vomiting diarrhea. Some chills and perspiration. No obvious fever. Nobody else was sick at her place. Last diarrhea and vomiting was yesterday evening. Started IV fluids here. Feeling better this morning. Patient is set at the bedside. Patient also noticed some blood in the urine and was having painful urination. Was found to have a UTI and given IV ceftriaxone. Did eat some breakfast this morning. Admitted with acute UTI with cystitis, viral gastroenteritis. She responded well to IV ceftriaxone, IV fluids. Today: Feeling back to her baseline. Tolerating a diet. Feeling well. Antibiotic changed to Keflex. Past medical history to include: GERD, hyperlipidemia, memory impairment, osteoarthritis, urinary incontinence, cervical cancer with surgery, peripheral neuropathy, bipolar disorder, does use a walker Social history: Lives at [facility]. Does use a walker. Has a financial DPOAE. Alcohol rarely. Does not smoke. Physical examination: VITAL SIGNS: 97.8, 66, 18, 116 x 78, 95% room air GENERAL: BMI 23.5, laying in bed, awake EYES: Pupils equal. Conjunctiva normal. HEENT: External appearance of nose and ears normal, oral cavity grossly normal. NECK: JVD not raised; masses not palpable. HEART: First and second heart sounds are normal; no edema. LUNGS: Respiratory rate normal; clear to auscultation. ABDOMEN: Soft, nontender, liver spleen not palpable, no masses palpable. MUSCULAR skeletal: Evidence of OA PSYCH: Able to answer questions appropriately. Mood and affect normal INVESTIGATIONS, reviewed in the clinical context: WBC 4.5 hemoglobin 12.1 platelets 181 potassium 3.4 creatinine 0.57 UA positive for nitrite, leukoesterase, WBC Assessment and plan: -Acute UTI with cystitis Started on IV ceftriaxone-discharge and Keflex -Acute viral gastroenteritis, self-limiting Improved. IV fluids. -Chronic stable angina, Continue nitrates, aspirin -GERD Omeprazole -Hyperlipidemia -Mild cognitive impairment On Namenda -Primary osteoarthritis Use the medications as needed -Chronic urinary incontinence Depends -Peripheral neuropathy cause unknown -Bipolar disorder On trazodone, Klonopin, BuSpar, Seroquel, Prozac -Chronic gait dysfunction uses a walker Fall precautions -Essential hypertension Hydralazine, Capoten, Disposition: Home Patient Condition at Discharge: Fair Plan - Discharge Summary Discharge Rx Participant: Yes New Discharge Prescriptions: New Cephalexin [Keflex] 250 mg PO Q6HR #12 cap Continue FLUoxetine HCL [PROzac] 40 mg PO HS@2000 Multivitamin/Iron/Folic Acid [Centrum Complete Multivit Tab] 1 tab PO DAILY@0800 Cholecalciferol [Vitamin D3 (25 Mcg = 1000 Iu)] 1,000 unit PO DAILY@0800 Primidone [Mysoline] 50 mg PO BID@0800,1200 Memantine [Namenda] 5 mg PO HS@2000 Alendronate Sodium [Fosamax] 70 mg PO WE@0600 Cyanocobalamin (Vitamin B-12) [Vitamin B-12] 1,000 mcg PO DAILY@0800 Aspirin EC [Ecotrin Low Dose] 81 mg PO DAILY@0800 clonazePAM 0.5 mg PO BID@0800,2000 FLUoxetine HCL [PROzac] 10 mg PO HS@2000 Polyethylene Glycol 3350 [Miralax] 17 gm PO DAILY@0800 traZODone HCL 100 mg PO HS@2000 Meloxicam [Mobic] 7.5 mg PO BID@0600,1800 Nitroglycerin Sl Tabs [Nitrostat] 0.4 mg SUBLINGUAL Q5M PRN #25 tab PRN Reason: Angina busPIRone HCL [Buspar] 7.5 mg PO BID@0800,2000 QUEtiapine [SEROquel] 25 mg PO HS@2000 Sodium Chloride 0.65% Nasal [Deep Sea (Saline)] 2 spray NASAL DAILY PRN PRN Reason: Nasal Congestion ALPRAZolam [Xanax] 0.25 mg PO BID PRN PRN Reason: Anxiety captopriL [Capoten] 25 mg PO BID PRN PRN Reason: Blood Pressure Diclofenac Sodium Gel [Voltaren Gel] 4 gm TOPICAL QID hydrALAZINE HCL [Apresoline] 50 mg PO QID Isosorbide Mononitrate ER [Imdur] 30 mg PO HS@1999 Vit C/E/Zn/Coppr/Lutein/Zeaxan [Preservision Areds 2 Softgel] 1 cap PO Q12H Discontinued Loratadine [Claritin] 10 mg PO DAILY@0800 No Action Docusate [Colace] 100 mg PO HS PRN PRN Reason: Constipation Omeprazole 20 mg PO DAILY@1500 Propylene Glycol/Peg 400 [Systane Ultra 0.4-0.3% Eye Drp] 1 drop BOTH EYES TID@0800,1600,1999 Discharge Medication List FLUoxetine HCL [PROzac] 40 mg PO HS@199912/14/14 [History] Multivitamin/Iron/Folic Acid [Centrum Complete Multivit Tab] 1 tab PO DAILY@0800 12/14/14 [History] Cholecalciferol [Vitamin D3 (25 Mcg = 1000 Iu)] 1,000 unit PO DAILY@0800 5 [History] Memantine [Namenda] 5 mg PO HS@199901/24/16 [History] Primidone [Mysoline] 50 mg PO BID@0800,1200 01/24/16 [History] Alendronate Sodium [Fosamax] 70 mg PO WE@0609/04/16 [History] Cyanocobalamin (Vitamin B-12) [Vitamin B-12] 1,000 mcg PO DAILY@0800 12/29/16 [History] Aspirin EC [Ecotrin Low Dose] 81 mg PO DAILY@0800 03/03/19 [History] Docusate [Colace] 100 mg PO HS PRN 06/10/20 [History] FLUoxetine HCL [PROzac] 10 mg PO HS@199906/10/20 [History] Meloxicam [Mobic] 7.5 mg PO BID@0600,1800 06/10/20 [History] Polyethylene Glycol 3350 [Miralax] 17 gm PO DAILY@0800 06/10/20 [History] clonazePAM 0.5 mg PO BID@0800,199906/10/20 [History] traZODone HCL 100 mg PO HS@199906/10/20 [History] Nitroglycerin Sl Tabs [Nitrostat] 0.4 mg SUBLINGUAL Q5M PRN #25 tab 06/11/20 [Rx] ALPRAZolam [Xanax] 0.25 mg PO BID PRN 02/04/21 [History] Diclofenac Sodium Gel [Voltaren Gel] 4 gm TOPICAL QID 02/04/21 [History] Isosorbide Mononitrate ER [Imdur] 30 mg PO HS@199902/04/21 [History] Omeprazole 20 mg PO DAILY@1500 02/04/21 [History] Propylene Glycol/Peg 400 [Systane Ultra 0.4-0.3% Eye Drp] 1 drop BOTH EYES TID@0800,1600,199902/04/21 [History] QUEtiapine [SEROquel] 25 mg PO HS@199902/04/21 [History] Sodium Chloride 0.65% Nasal [Deep Sea (Saline)] 2 spray NASAL DAILY PRN 02/04/21 [History] Vit C/E/Zn/Coppr/Lutein/Zeaxan [Preservision Areds 2 Softgel] 1 cap PO Q12H 02/04/21 [History] busPIRone HCL [Buspar] 7.5 mg PO BID@0800,199902/04/21 [History] captopriL [Capoten] 25 mg PO BID PRN 02/04/21 [History] hydrALAZINE HCL [Apresoline] 50 mg PO QID 02/04/21 [History] Cephalexin [Keflex] 250 mg PO Q6HR #12 cap 02/06/21 [Rx] Follow up Appointment(s)/Referral(s): Iraj Paredes MD [Primary Care Provider] - 1-2 days Patient Instructions/Handouts: Cephalexin (By mouth), Urinary Tract Infection in Women (DC) Activity/Diet/Wound Care/Special Instructions: Follow up with medical Dr. in next week Diet as tolerated Activity limited until seen by DrLolita Discharge Disposition: HOME SELF-CARE
[2021-02-09] MEDS ORDERED: NON FORMULARY DRUG (Alendronate Sodium [Fosamax] 70 MG Tablet) PO SCH (06:00)
== END 2021-02-06 13:00 | disposition home or self-care (01) ==
LOC: EC 20:25 → 5NMEDONC 23:02
PROVIDERS: ADMIT Hospitalist; ATTEND Hospitalist
DX: N30.91 Cystitis, unspecified with hematuria (principal); R11.2 Nausea with vomiting, unspecified; Z20.822 Contact with and (suspected) exposure to COVID-19; A08.4 Viral intestinal infection, unspecified; I20.8 Other forms of angina pectoris; K21.9 Gastro-esophageal reflux disease without esophagitis; E78.5 Hyperlipidemia, unspecified; F03.90 Unspecified dementia, unspecified severity, without behavioral disturbance, psychotic disturbance, mood disturbance, and anxiety; F31.9 Bipolar disorder, unspecified; E86.0 Dehydration; F41.9 Anxiety disorder, unspecified; G62.9 Polyneuropathy, unspecified; I10 Essential (primary) hypertension; M19.91 Primary osteoarthritis, unspecified site; Z79.1 Long term (current) use of non-steroidal anti-inflammatories (NSAID); Z79.82 Long term (current) use of aspirin; Z79.83 Long term (current) use of bisphosphonates; Z79.899 Other long term (current) drug therapy; Z82.49 Family history of ischemic heart disease and other diseases of the circulatory system; Z85.41 Personal history of malignant neoplasm of cervix uteri; Z87.891 Personal history of nicotine dependence; Z96.643 Presence of artificial hip joint, bilateral
CPT/HCPCS: 99285; 96361 ×3; 96366; 96365; 96375; 36415; 80053 ×2; 82150; 83690; 83735 ×2; 84484; 85025; 81001; 87086; 87077; 87186; 87635; 74018; G0378 ×3; J1200; J0696 ×3; 93005

== ENCOUNTER 2021-05-19 11:25 | Emergency (ER) | payer MEDICARE ==
[2021-05-19 11:33] VITALS: RESP 18; TEMP 98.5
--- NOTE | 2021-05-19 11:59 | ED ---
Skin/Abscess/FB HPI - General Chief complaint: Skin/Abscess/Foreign Body Stated complaint: Head Wound Time Seen by Provider: 05/19/21 11:41 Source: patient, EMS Mode of arrival: EMS Limitations: no limitations - History of Present Illness Initial comments: This a 80-year-old female presents emergency Department chief complaint of wound to her head. Patient states has been there for possibly 3 weeks after she may have burned it with her curling iron or may have injured it with her hair pick. Patient states that she noticed And bigger, there is some drainage, bleeding. She states is mild discomfort at the site no other complaints. - Related Data Home Medications Medication Instructions Recorded Confirmed FLUoxetine HCL [PROzac] 40 mg PO HS@199912/14/14 02/04/21 Multivitamin/Iron/Folic Acid 1 tab PO DAILY@0800 12/14/14 02/04/21 [Centrum Complete Multivit Tab] Cholecalciferol [Vitamin D3 (25 1,000 unit PO DAILY@0800 12/23/14 02/04/21 Mcg = 1000 Iu)] Memantine [Namenda] 5 mg PO HS@199901/24/16 02/04/21 Primidone [Mysoline] 50 mg PO BID@0800,1200 01/24/16 02/04/21 Alendronate Sodium [Fosamax] 70 mg PO WE@0609/04/16 02/04/21 Cyanocobalamin (Vitamin B-12) 1,000 mcg PO DAILY@0800 12/29/16 02/04/21 [Vitamin B-12] Aspirin EC [Ecotrin Low Dose] 81 mg PO DAILY@0800 03/03/19 02/04/21 Docusate [Colace] 100 mg PO HS PRN 06/10/20 02/04/21 FLUoxetine HCL [PROzac] 10 mg PO HS@199906/10/20 02/04/21 Meloxicam [Mobic] 7.5 mg PO BID@0600,1800 06/10/20 02/04/21 Polyethylene Glycol 3350 [Miralax] 17 gm PO DAILY@0800 06/10/20 02/04/21 clonazePAM 0.5 mg PO BID@0800,199906/10/20 02/04/21 traZODone HCL 100 mg PO HS@199906/10/20 02/04/21 ALPRAZolam [Xanax] 0.25 mg PO BID PRN 02/04/21 02/04/21 Diclofenac Sodium Gel [Voltaren 4 gm TOPICAL QID 02/04/21 02/04/21 Gel] Isosorbide Mononitrate ER [Imdur] 30 mg PO HS@199902/04/21 02/04/21 Omeprazole 20 mg PO DAILY@149902/04/21 02/04/21 QUEtiapine [SEROquel] 25 mg PO HS@199902/04/21 02/04/21 Sodium Chloride 0.65% Nasal [Deep 2 spray NASAL DAILY PRN 02/04/21 02/04/21 Sea (Saline)] Vit C/E/Zn/Coppr/Lutein/Zeaxan 1 cap PO Q12H 02/04/21 02/04/21 [Preservision Areds 2 Softgel] busPIRone HCL [Buspar] 7.5 mg PO BID@0800,199902/04/21 02/04/21 captopriL [Capoten] 25 mg PO BID PRN 02/04/21 02/04/21 hydrALAZINE HCL [Apresoline] 50 mg PO QID 02/04/21 02/04/21 Loratadine 10 mg PO DAILY@0800 05/19/21 05/19/21 Magnesium Hydroxide [Milk of 2,400 mg PO DAILY PRN 05/19/21 05/19/21 Magnesia] Sennosides/Docusate Sodium [Senna 2 cap PO HS@199905/19/21 05/19/21 Plus 8.6-50 mg Softgel] Previous Rx's Medication Instructions Recorded Nitroglycerin Sl Tabs [Nitrostat] 0.4 mg SUBLINGUAL Q5M PRN #25 tab 06/11/20 Cephalexin [Keflex] 500 mg PO Q6HR #40 cap 05/19/21 Mupirocin 2% Oint [Bactroban 2% 1 applic TOPICAL TID #22 gm 05/19/21 Oint] Allergies Allergy/AdvReac Type Severity Reaction Status Date / Time lorazepam [From Ativan] Allergy Hallucinati Verified 05/19/21 11:49 ons pneumococcal vaccine Allergy Swelling Verified 05/19/21 11:49 Review of Systems ROS Statement: Those systems with pertinent positive or pertinent negative responses have been documented in the HPI. ROS Other: All systems not noted in ROS Statement are negative. Past Medical History Past Medical History: Cancer, GERD/Reflux, Hyperlipidemia, Memory Impairment, Osteoarthritis (OA), Skin Disorder Additional Past Medical History / Comment(s): Mild dementia, arthritis in multiple joints, urine incontinence, UTIs, cervical cancer with surgical removal, cystic acne as a youg person, neuropathy bilateral hands/feet History of Any Multi-Drug Resistant Organisms: None Reported Past Surgical History: Adenoidectomy, Joint Replacement, Orthopedic Surgery, Tonsillectomy, Tubal Ligation Additional Past Surgical History / Comment(s): 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 Past Anesthesia/Blood Transfusion Reactions: No Reported Reaction, Family History of Problems w/ Anesthesia Additional Past Anesthesia/Blood Transfusion Reaction / Comment(s): "father had problem w/spinal & was paralyzed per pt." Past Psychological History: Anxiety, Bipolar, Depression Smoking Status: Never smoker Past Alcohol Use History: Rare Past Drug Use History: None Reported - Past Family History Father Family Medical History: Hypertension Additional Family Medical History / Comment(s): open heart surgery, paralyzed by spinal. Pt states paralyzed from shot in this hospital. Mother Family Medical History: Dementia General Exam Limitations: no limitations General appearance: alert, in no apparent distress Head exam: Present: atraumatic, normocephalic. Absent: normal inspection (There is erythematous sore on the occipital parietal region there is some mild oozing, bleeding noted) Eye exam: Present: normal appearance, PERRL, EOMI. Absent: scleral icterus, conjunctival injection, periorbital swelling ENT exam: Present: normal exam, normal oropharynx, mucous membranes moist, TM's normal bilaterally Neck exam: Present: normal inspection, full ROM. Absent: tenderness, meningismus, lymphadenopathy Respiratory exam: Present: normal lung sounds bilaterally. Absent: respiratory distress, wheezes, rales, rhonchi, stridor Cardiovascular Exam: Present: regular rate, normal rhythm, normal heart sounds. Absent: systolic murmur, diastolic murmur, rubs, gallop, clicks Course Vital Signs 05/19/21 11:28 Temperature 98.5 F Pulse Rate 68 Respiratory 18 Rate Blood Pressure 164/68 O2 Sat by Pulse 99 Oximetry Medical Decision Making - Medical Decision Making Patient appears to have infected wound on her scalp. Patient was started on topical and oral antibiotics. We discussed possibility of starting as shingles of though she has no other areas of symptoms patient will have close follow-up return parameters were discussed. Disposition Clinical Impression: Scalp abrasion, infected Disposition: HOME SELF-CARE Condition: Stable Instructions (If sedation given, give patient instructions): Cellulitis (ED) Additional Instructions: Please return to the Emergency Department if symptoms worsen or any other concerns. Prescriptions: Mupirocin 2% Oint [Bactroban 2% Oint] 1 applic TOPICAL TID #22 gm Cephalexin [Keflex] 500 mg PO Q6HR #40 cap Is patient prescribed a controlled substance at d/c from ED?: No Referrals: Iraj Paredes MD [Primary Care Provider] - 1-2 days Time of Disposition: 11:58
[2021-05-19 12:34] VITALS: BP 155/68; PULSE 61
== END 2021-05-19 12:34 | disposition home or self-care (01) ==
LOC: EC 11:25
DX: S00.01XA Abrasion of scalp, initial encounter (principal); K21.9 Gastro-esophageal reflux disease without esophagitis; M19.90 Unspecified osteoarthritis, unspecified site; Z88.8 Allergy status to other drugs, medicaments and biological substances; Z88.7 Allergy status to serum and vaccine; Z79.82 Long term (current) use of aspirin; Z79.899 Other long term (current) drug therapy; W26.8XXA Contact with other sharp object(s), not elsewhere classified, initial encounter; Y92.009 Unspecified place in unspecified non-institutional (private) residence as the place of occurrence of the external cause
CPT/HCPCS: 99283

== ENCOUNTER 2021-07-12 13:19 | Observation (INO) | payer MEDICARE ==
[2021-07-12] MEDS ORDERED: ONDANSETRON 4 MG/2 ML VIAL IVP STA (13:42)
[2021-07-12] MEDS ORDERED: SODIUM CHLORIDE 0.9% 1,000 ML IV STA (13:42)
[2021-07-12] MEDS ORDERED: FAMOTIDINE 20 MG/2 ML VIAL IV STA (13:44)
--- NOTE | 2021-07-12 13:49 | ED ---
General Adult HPI - General Chief complaint: Nausea/Vomiting/Diarrhea Stated complaint: Diarrhea Time Seen by Provider: 07/12/21 13:27 Source: patient, RN notes reviewed Mode of arrival: ambulatory Limitations: no limitations - History of Present Illness Initial comments: Patient is a pleasant 80-year-old female presenting to the emergency Department with chief complaint diarrhea. Onset was around 24 hours ago. Patient has had multiple episodes. Patient has nausea as well however no vomiting. Patient is having abdominal cramping, intermittently. Patient is also having some mild chest discomfort. No history of similar symptoms chronically. - Related Data Home Medications Medication Instructions Recorded Confirmed FLUoxetine HCL [PROzac] 40 mg PO HS@199912/14/14 07/12/21 Multivitamin/Iron/Folic Acid 1 tab PO DAILY@0800 12/14/14 07/12/21 [Centrum Complete Multivit Tab] Memantine [Namenda] 5 mg PO HS@199901/24/16 07/12/21 Primidone [Mysoline] 50 mg PO BID@0800,1200 01/24/16 07/12/21 Alendronate Sodium [Fosamax] 70 mg PO WE@0609/04/16 07/12/21 Cyanocobalamin (Vitamin B-12) 1,000 mcg PO DAILY@0800 12/29/16 07/12/21 [Vitamin B-12] Aspirin EC [Ecotrin Low Dose] 81 mg PO DAILY@0800 03/03/19 07/12/21 Docusate [Colace] 100 mg PO HS PRN 06/10/20 07/12/21 FLUoxetine HCL [PROzac] 10 mg PO HS@199906/10/20 07/12/21 Meloxicam [Mobic] 7.5 mg PO BID@0600,1800 06/10/20 07/12/21 Polyethylene Glycol 3350 [Miralax] 17 gm PO DAILY@0800 06/10/20 07/12/21 clonazePAM 0.5 mg PO BID@0800,199906/10/20 07/12/21 traZODone HCL 100 mg PO HS@199906/10/20 07/12/21 ALPRAZolam [Xanax] 0.25 mg PO BID PRN 02/04/21 07/12/21 Diclofenac Sodium Gel [Voltaren 4 gm TOPICAL QID 02/04/21 07/12/21 Gel] Isosorbide Mononitrate ER [Imdur] 30 mg PO HS@199902/04/21 07/12/21 Omeprazole 20 mg PO DAILY@149902/04/21 07/12/21 QUEtiapine [SEROquel] 25 mg PO HS@199902/04/21 07/12/21 Sodium Chloride 0.65% Nasal [Deep 2 spray NASAL DAILY PRN 02/04/21 07/12/21 Sea (Saline)] Vit C/E/Zn/Coppr/Lutein/Zeaxan 1 cap PO BID@08,199902/04/21 07/12/21 [Preservision Areds 2 Softgel] busPIRone HCL [Buspar] 7.5 mg PO BID@0800,199902/04/21 07/12/21 captopriL [Capoten] 25 mg PO BID PRN 02/04/21 07/12/21 hydrALAZINE HCL [Apresoline] 50 mg PO QID 02/04/21 07/12/21 Loratadine 10 mg PO DAILY@0800 05/19/21 07/12/21 Magnesium Hydroxide [Milk of 2,400 mg PO DAILY PRN 05/19/21 07/12/21 Magnesia] Sennosides/Docusate Sodium [Senna 2 cap PO HS@199905/19/21 07/12/21 Plus 8.6-50 mg Softgel] Cholecalciferol [Vitamin D3 (25 25 mcg PO DAILY 07/12/21 07/12/21 Mcg = 1000 Iu)] hydrALAZINE HCL 50 mg PO QID 07/12/21 07/12/21 Previous Rx's Medication Instructions Recorded Nitroglycerin Sl Tabs [Nitrostat] 0.4 mg SUBLINGUAL Q5M PRN #25 tab 06/11/20 Allergies Allergy/AdvReac Type Severity Reaction Status Date / Time lorazepam [From Ativan] Allergy Hallucinati Verified 05/19/21 11:49 ons pneumococcal vaccine Allergy Swelling Verified 05/19/21 11:49 Review of Systems ROS Statement: Those systems with pertinent positive or pertinent negative responses have been documented in the HPI. ROS Other: All systems not noted in ROS Statement are negative. Constitutional: Denies: fever Eyes: Denies: eye pain ENT: Denies: ear pain Respiratory: Denies: cough Cardiovascular: Reports: as per HPI, chest pain Endocrine: Denies: fatigue Gastrointestinal: Reports: as per HPI, nausea, diarrhea. Denies: vomiting Genitourinary: Denies: dysuria Musculoskeletal: Denies: back pain Skin: Denies: rash Neurological: Denies: weakness Past Medical History Past Medical History: Cancer, GERD/Reflux, Hyperlipidemia, Memory Impairment, Osteoarthritis (OA), Skin Disorder Additional Past Medical History / Comment(s): Mild dementia, arthritis in multiple joints, urine incontinence, UTIs, cervical cancer with surgical removal, cystic acne as a youg person, neuropathy bilateral hands/feet History of Any Multi-Drug Resistant Organisms: None Reported Past Surgical History: Adenoidectomy, Joint Replacement, Orthopedic Surgery, Tonsillectomy, Tubal Ligation Additional Past Surgical History / Comment(s): Bilateral total hip replacements with L hip revision, R ORIF hip d/t periprosthetic fracture of femur, ORIF R a nkle d/t fracture, L knee arthroscopy, D&C with part cervix removed d/t cancer, EGD, colonoscopy. Past Anesthesia/Blood Transfusion Reactions: No Reported Reaction, Family His tory of Problems w/ Anesthesia Additional Past Anesthesia/Blood Transfusion Reaction / Comment(s): "father had problem w/spinal & was paralyzed per pt." Past Psychological History: Anxiety, Bipolar, Depression Smoking Status: Never smoker Past Alcohol Use History: Rare Past Drug Use History: None Reported - Past Family History Father Family Medical History: Hypertension Additional Family Medical History / Comment(s): open heart surgery, paralyzed by spinal. Pt states paralyzed from shot in this hospital. Mother Family Medical History: Dementia General Exam Limitations: no limitations General appearance: alert, in no apparent distress Head exam: Present: normocephalic Eye exam: Present: normal appearance Neck exam: Present: normal inspection Respiratory exam: Present: normal lung sounds bilaterally Cardiovascular Exam: Present: regular rate, normal rhythm Expanded Peripheral pulses: 2+: Radial (R), Radial (L), Dorsalis Pedis (R), Dorsalis Pedis (L) GI/Abdominal exam: Present: soft, tenderness (Mild diffuse tenderness). Absent: distended, guarding, rebound, rigid Extremities exam: Present: normal inspection Neurological exam: Present: alert Psychiatric exam: Present: normal affect, normal mood Skin exam: Present: normal color Course Vital Signs 07/12/21 07/12/21 07/12/21 13:22 13:33 14:00 Temperature Pulse Rate 88 85 Respiratory 20 18 Rate Blood Pressure 160/77 165/83 O2 Sat by Pulse 98 99 Oximetry 07/12/21 14:14 Temperature 97.1 F L Pulse Rate Respiratory Rate Blood Pressure O2 Sat by Pulse Oximetry EKG Findings - EKG Comments: EKG Findings:: Sinus rhythm with rate of 84. NE 146. QRS 84. QT 414. QTC 49. Normal axis. Normal QRS. Borderline lateral ST depression. Medical Decision Making - Medical Decision Making Patient reevaluated. Patient updated. Case discussed Dr. Wynne, who will admit covering Dr. Mead - Lab Data Result diagrams: 07/12/21 14:13 07/12/21 14:13 Lab Results 07/12/21 07/12/21 07/12/21 Range/Units 14:13 14:13 14:13 WBC 5.8 (3.8-10.6) k/uL RBC 3.72 L (3.80-5.40) m/uL Hgb 12.1 (11.4-16.0) gm/dL Hct 34.6 (34.0-46.0) % MCV 92.8 (80.0-100.0) fL MCH 32.4 (25.0-35.0) pg MCHC 34.9 (31.0-37.0) g/dL RDW 13.2 (11.5-15.5) % Plt Count 216 (150-450) k/uL MPV 7.9 Neutrophils % 80 % Lymphocytes % 10 % Monocytes % 8 % Eosinophils % 1 % Basophils % 0 % Neutrophils # 4.6 (1.3-7.7) k/uL Lymphocytes # 0.6 L (1.0-4.8) k/uL Monocytes # 0.4 (0-1.0) k/uL Eosinophils # 0.1 (0-0.7) k/uL Basophils # 0.0 (0-0.2) k/uL PT 11.9 (9.0-12.0) sec INR 1.1 (<1.2) APTT 22.2 (22.0-30.0) sec Sodium 139 (137-145) mmol/L Potassium 3.7 (3.5-5.1) mmol/L Chloride 110 H (98-107) mmol/L Carbon Dioxide 18 L (22-30) mmol/L Anion Gap 11 mmol/L BUN 20 H (7-17) mg/dL Creatinine 0.56 (0.52-1.04) mg/dL Est GFR (CKD-EPI)AfAm >90 (>60 ml/min/1.73 sqM) Est GFR (CKD-EPI)NonAf 90 (>60 ml/min/1.73 sqM) Glucose 110 H (74-99) mg/dL Calcium 9.6 (8.4-10.2) mg/dL Total Bilirubin 0.6 (0.2-1.3) mg/dL AST 29 (14-36) U/L ALT 17 (4-34) U/L Alkaline Phosphatase 73 (38-126) U/L Troponin I (0.000-0.034) ng/mL Total Protein 7.3 (6.3-8.2) g/dL Albumin 4.3 (3.5-5.0) g/dL Amylase 68 (30-110) U/L Lipase 117 (23-300) U/L 07/12/ Range/Units 14:13 WBC (3.8-10.6) k/uL RBC (3.80-5.40) m/uL Hgb (11.4-16.0) gm/dL Hct (34.0-46.0) % MCV (80.0-100.0) fL MCH (25.0-35.0) pg MCHC (31.0-37.0) g/dL RDW (11.5-15.5) % Plt Count (150-450) k/uL MPV Neutrophils % % Lymphocytes % % Monocytes % % Eosinophils % % Basophils % % Neutrophils # (1.3-7.7) k/uL Lymphocytes # (1.0-4.8) k/uL Monocytes # (0-1.0) k/uL Eosinophils # (0-0.7) k/uL Basophils # (0-0.2) k/uL PT (9.0-12.0) sec INR (<1.2) APTT (22.0-30.0) sec Sodium (137-145) mmol/L Potassium (3.5-5.1) mmol/L Chloride (98-107) mmol/L Carbon Dioxide (22-30) mmol/L Anion Gap mmol/L BUN (7-17) mg/dL Creatinine (0.52-1.04) mg/dL Est GFR (CKD-EPI)AfAm (>60 ml/min/1.73 sqM) Est GFR (CKD-EPI)NonAf (>60 ml/min/1.73 sqM) Glucose (74-99) mg/dL Calcium (8.4-10.2) mg/dL Total Bilirubin (0.2-1.3) mg/dL AST (14-36) U/L ALT (4-34) U/L Alkaline Phosphatase (38-126) U/L Troponin I <0.012 (0.000-0.034) ng/mL Total Protein (6.3-8.2) g/dL Albumin (3.5-5.0) g/dL Amylase (30-110) U/L Lipase (23-300) U/L - Radiology Data Radiology results: image reviewed (Chest and abdominal x-ray revealed no acute process) Disposition Clinical Impression: Chest pain, Diarrhea Disposition: ADMITTED IP TO THIS HOSP Is patient prescribed a controlled substance at d/c from ED?: No Referrals: Iraj Paredes MD [Primary Care Provider] - 1-2 days Decision Time: 15:01
[2021-07-12] MEDS ORDERED: ASPIRIN 81 MG PO STA (14:02)
[2021-07-12 14:25] LABS: Basophils % (A) 0 %; Eosinophils # (A) 0.1 k/uL (0-0.7); Eosinophils % (A) 1 %; HCT 34.6 % (34.0-46.0); HGB 12.1 gm/dL (11.4-16.0); Lymphocytes # (A) 0.6 k/uL (1.0-4.8); Lymphocytes % (A) 10 %; MCH 32.4 pg (25.0-35.0); MCHC 34.9 g/dL (31.0-37.0); MCV 92.8 fL (80.0-100.0); Mean Platelet Volume 7.9; Monocytes # (A) 0.4 k/uL (0-1.0); Monocytes % (A) 8 %; Neutrophils # (A) 4.6 k/uL (1.3-7.7); Neutrophils % (A) 80 %; Platelet Count 216 k/uL (150-450); RBC 3.72 m/uL (3.80-5.40); RDW 13.2 % (11.5-15.5); WBC 5.8 k/uL (3.8-10.6)
--- NOTE | 2021-07-12 14:39 | XR ---
EXAMINATION TYPE: XR chest 2V DATE OF EXAM: 07/12/2021 COMPARISON: Chest x-ray June 10, 2020 HISTORY: Chest pain. TECHNIQUE: Frontal and lateral views of the chest are obtained. FINDINGS: There is mild chronic parenchymal changes bilaterally without suspicious focal air space o pacity, pleural effusion, or pneumothorax seen. The cardiac silhouette size is stable and within nor mal limits. The osseous structures are demineralized. Overlying EKG leads redemonstrated. IMPRESSION: Chronic changes without acute pulmonary process. No significant change from prior.
--- NOTE | 2021-07-12 14:40 | XR ---
EXAMINATION TYPE: XR KUB DATE OF EXAM: 07/12/2021 2:29 PM CLINICAL HISTORY: Chest and abdominal pain TECHNIQUE: Two supine KUB images of the abdomen are obtained. COMPARISON: Abdominal x-ray February 04, 2021. FINDINGS: Gas seen in nondistended stomach. Scattered gas seen in nondistended small and large bowel loops. Visualized lung bases are clear. Surgical change to bilateral hips partially imaged similar to prior. No suspicious calcifications. Disc space narrowing at L4-L5 level with mild to moderate multi level spurring. IMPRESSION: Overall nonobstructive bowel gas pattern. No significant change from prior.
[2021-07-12 14:42] LABS: ALT 17 U/L (4-34); AST 29 U/L (14-36); African American GFR (CKD) >90 (>60 ml/min/1.73 sqM); Albumin 4.3 g/dL (3.5-5.0); Alkaline Phosphatase 73 U/L (38-126); Amylase 68 U/L (30-110); Anion Gap 11 mmol/L; Blood Urea Nitrogen 20 mg/dL (7-17); Calcium 9.6 mg/dL (8.4-10.2); Carbon Dioxide 18 mmol/L (22-30); Chloride 110 mmol/L (98-107); Glucose 110 mg/dL (74-99); Lipase 117 U/L (23-300); Non-African American GFR(CKD) 90 (>60 ml/min/1.73 sqM); Potassium 3.7 mmol/L (3.5-5.1); Sodium 139 mmol/L (137-145); Total Bilirubin 0.6 mg/dL (0.2-1.3); Total Protein 7.3 g/dL (6.3-8.2)
[2021-07-12 14:55] LABS: INR 1.1 (<1.2); Partial Thromboplastin Time 22.2 sec (22.0-30.0); Prothrombin Time 11.9 sec (9.0-12.0)
[2021-07-12] MEDS ORDERED: NITROGLYCERIN SL TABS 0.4 MG TAB SUBLINGUAL PRN ×2 (15:01→22:11)
[2021-07-12] MEDS ORDERED: QUEtiapine 25 MG TAB PO SCH (22:11)
[2021-07-12] MEDS ORDERED: MELOXICAM 7.5 MG TAB PO SCH (22:11)
[2021-07-12] MEDS ORDERED: traZODone HCL 100 MG TAB PO SCH (22:11)
[2021-07-12] MEDS ORDERED: MAGNESIUM HYDROXIDE 2,400 MG/10 ML CUP PO PRN (22:11)
[2021-07-12] MEDS ORDERED: ALPRAZolam 0.25 MG TAB PO PRN (22:11)
[2021-07-12] MEDS ORDERED: SODIUM CHLORIDE 0.65% NASAL SPRAY 44 ML BTL NASAL PRN (22:11)
[2021-07-12] MEDS ORDERED: ACETAMINOPHEN TAB 325 MG TAB PO PRN (22:15)
[2021-07-12] MEDS ORDERED: NALOXONE 0.4 MG/ML 1 ML VIAL IV PRN (22:15)
[2021-07-12] MEDS ORDERED: CALCIUM CARBONATE 500 MG CHEWABLE PO PRN (22:15)
--- NOTE | 2021-07-12 22:32 | P.HPIM ---
History of Present Illness H&P Date: 07/12/21 Chief Complaint: Diarrhea This is a very pleasant 80-year-old patient follows with visiting physicians Dr. Paredes. Chronic stable medical conditions include GERD, hyperlipidemia, cognitive impairment, osteoarthritis, urinary incontinence peripheral neuropathy does use a walker to get about. Bipolar. Patient lives at [facility] assisted living. Patient for 2 days started having multiple episodes of diarrhea. No blood. Abdominal discomfort. Nausea. Fever and chills. Dizzy lightheaded. Also some left chest stabbing sharp pain. No radiation. Breaking out in a swea t. Tired rundown. Appetite had been poor. Does not remember anybody else around her being sick or eating anything that was left over. Review of systems: GEN.: Tired fever or chills EYES: None HEENT: None NECK: None RESPIRATORY: None CARDIOVASCULAR: None GASTROINTESTINAL: As above GENITOURINARY: Urinary incontinence MUSCULOSKELETAL: None LYMPHATICS: None HEMATOLOGICAL: None PSYCHIATRY: Anxious NEUROLOGICAL: None Past medical history to include: GERD, hyperlipidemia, cognitive impairment, osteoarthritis, urinary incontinence, peripheral neuropathy, bipolar disorder Social history: Lives at [facility] in assisted living. Does use a walker. Makes her own medical decision but has a financial [employer]. Nonsmoker. Alcohol rarely. Family history: Hypertension, cardiac conditions Physical examination: VITAL SIGNS: 97, 104, 18, 129/60, 99% room air GENERAL: BMI 21.6, laying in bed, perspiration, a bit shaky tired anxious. EYES: Pupils equal. Conjunctiva normal. HEENT: External appearance of nose and ears normal, oral cavity grossly normal. NECK: JVD not raised; masses not palpable. HEART: First and second heart sounds are normal; no edema. LUNGS: Respiratory rate normal; clear to auscultation. ABDOMEN: Soft, mild tenderness, no guarding rigidity, liver spleen not palpable, no masses palpable. PSYCH: Alert and oriented x3; mood and affect anxiousl. NEUROLOGICAL: Cranial nerves grossly intact; no facial asymmetry, power and sensation grossly intact. LYMPHATICS: No lymph nodes palpable in the axilla and neck INVESTIGATIONS, reviewed in the clinical context: WBC 5.8 hemoglobin 12.1 platelets 216 sodium 139 potassium 3.7 BUN 20 creatinine 0.56 Troponin I less than 0.0122 Coronavirus [PCR]: Not detected EKG tracing personally reviewed by me-normal sinus rhythm. Nonspecific ST-T wave changes. Chest x-ray film personally reviewed by me-no infiltrates Assessment and plan: -Acute gastroenteritis could be bacterial/food poisoning Patient presents with 2 days of persistent diarrhea watery with no blood. Abdominal discomfort. Fever or chills. Nausea. We'll empirically treat the patient with Levaquin 500 milligram a day and Flagyl 500 mg 3 times a day. -Clinical dehydration IV fluids -GERD Omeprazole 20 mg daily -Hyperlipidemia Diet-controlled -Essential hypertension Hydralazine 50 mg 4 times a day -Mild cognitive impairment Namenda 5 mg daily at bedtime -Primary osteoarthritis Mobic 7.5 mg twice a day. Voltaren gel 4 times a day -Chronic urinary stress incontinence Depends - peripheral neuropathy both in the hand and feet -Bipolar disorder BuSpar 7.5 mg by mouth twice a day, Klonopin 0.5 mg twice a day Prozac 50 mg daily at bedtime. Seroquel 25 mg daily at bedtime trazodone 100 mg daily at bedtime -Chronic gait dysfunction uses a walker Fall precaution Levaquin. Flagyl. Full liquid diet. Lactated Ringer's. Resume home medications. Fall precautions. Care was discussed with the patient. Questions answered. Subcu Lovenox. Past Medical History Past Medical History: Cancer, GERD/Reflux, Hyperlipidemia, Memory Impairment, Osteoarthritis (OA), Skin Disorder Additional Past Medical History / Comment(s): Mild dementia, arthritis in multiple joints, urine incontinence, UTIs, cervical cancer with surgical removal, cystic acne as a youg person, neuropathy bilateral hands/feet History of Any Multi-Drug Resistant Organisms: None Reported Past Surgical History: Adenoidectomy, Joint Replacement, Orthopedic Surgery, Tonsillectomy, Tubal Ligation Additional Past Surgical History / Comment(s): 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 Past Anesthesia/Blood Transfusion Reactions: No Reported Reaction, Family History of Problems w/ Anesthesia Additional Past Anesthesia/Blood Transfusion Reaction / Comment(s): "father had problem w/spinal & was paralyzed per pt." Past Psychological History: Anxiety, Bipolar, Depression Smoking Status: Never smoker Past Alcohol Use History: Rare Past Drug Use History: None Reported - Past Family History Father Family Medical History: Hypertension Additional Family Medical History / Comment(s): open heart surgery, paralyzed by spinal. Pt states paralyzed from shot in this hospital. Mother Family Medical History: Dementia Medications and Allergies Home Medications Medication Instructions Recorded Confirmed Type FLUoxetine HCL [PROzac] 40 mg PO HS@199912/14/14 07/12/21 History Multivitamin/Iron/Folic Acid 1 tab PO DAILY@0800 12/14/14 07/12/21 History [Centrum Complete Multivit Tab] Memantine [Namenda] 5 mg PO HS@199901/24/16 07/12/21 History Primidone [Mysoline] 50 mg PO BID@0800,1200 01/24/16 07/12/21 History Alendronate Sodium [Fosamax] 70 mg PO WE@0600 09/04/16 07/12/21 History Cyanocobalamin (Vitamin B-12) 1,000 mcg PO DAILY@0800 12/29/16 07/12/21 History [Vitamin B-12] Aspirin EC [Ecotrin Low Dose] 81 mg PO DAILY@0800 03/03/19 07/12/21 History Docusate [Colace] 100 mg PO HS PRN 06/10/20 07/12/21 History FLUoxetine HCL [PROzac] 10 mg PO HS@199906/10/20 07/12/21 History Meloxicam [Mobic] 7.5 mg PO BID@0600,1800 06/10/20 07/12/21 History Polyethylene Glycol 3350 [Miralax] 17 gm PO DAILY@0800 06/10/20 07/12/21 History clonazePAM 0.5 mg PO BID@0800,199906/10/20 07/12/21 History traZODone HCL 100 mg PO HS@199906/10/20 07/12/21 History Nitroglycerin Sl Tabs [Nitrostat] 0.4 mg SUBLINGUAL Q5M PRN #25 tab 06/11/20 07/12/21 Rx ALPRAZolam [Xanax] 0.25 mg PO BID PRN 02/04/21 07/12/21 History Diclofenac Sodium Gel [Voltaren 4 gm TOPICAL QID 02/04/21 07/12/21 History Gel] Isosorbide Mononitrate ER [Imdur] 30 mg PO HS@199902/04/21 07/12/21 History Omeprazole 20 mg PO DAILY@1500 02/04/21 07/12/21 History QUEtiapine [SEROquel] 25 mg PO HS@199902/04/21 07/12/21 History Sodium Chloride 0.65% Nasal [Deep 2 spray NASAL DAILY PRN 02/04/21 07/12/21 History Sea (Saline)] Vit C/E/Zn/Coppr/Lutein/Zeaxan 1 cap PO BID@0800,199902/04/21 07/12/21 History [Preservision Areds 2 Softgel] busPIRone HCL [Buspar] 7.5 mg PO BID@0800,199902/04/21 07/12/21 History captopriL [Capoten] 25 mg PO BID PRN 02/04/21 07/12/21 History hydrALAZINE HCL [Apresoline] 50 mg PO QID 02/04/21 07/12/21 History Loratadine 10 mg PO DAILY@0800 05/19/21 07/12/21 History Magnesium Hydroxide [Milk of 2,400 mg PO DAILY PRN 05/19/21 07/12/21 History Magnesia] Sennosides/Docusate Sodium [Senna 2 cap PO HS@199905/19/21 07/12/21 History Plus 8.6-50 mg Softgel] Cholecalciferol [Vitamin D3 (25 25 mcg PO DAILY 07/12/21 07/12/21 History Mcg = 1000 Iu)] hydrALAZINE HCL 50 mg PO QID 07/12/21 07/12/21 History Allergies Allergy/AdvReac Type Severity Reaction Status Date / Time lorazepam [From Ativan] Allergy Hallucinati Verified 05/19/21 11:49 ons pneumococcal vaccine Allergy Swelling Verified 05/19/21 11:49 Physical Exam Vitals: Vital Signs Temp Pulse Resp BP Pulse Ox 07/12/21 21:17 106 H 18 177/82 94 L 07/12/21 20:55 104 H 18 129/60 07/12/21 14:14 97.1 F L 07/12/21 14:00 85 18 165/83 99 07/12/21 13:33 98 07/12/21 13:22 88 20 160/77 Intake and Output 07/12/21 07/12/21 07/12/21 06:59 14:59 22:59 Other: Weight 58.967 kg Results CBC & Chem 7: 07/12/21 14:13 07/12/21 14:13 Labs: Abnormal Lab Results - Last 24 Hours (Table) 07/12/21 07/12/21 Range/Units 14:13 14:13 RBC 3.72 L (3.80-5.40) m/uL Lymphocytes # 0.6 L (1.0-4.8) k/uL Chloride 110 H (98-107) mmol/L Carbon Dioxide 18 L (22-30) mmol/L BUN 20 H (7-17) mg/dL Glucose 110 H (74-99) mg/dL
[2021-07-12] MEDS: metroNIDAZOLE 500 MG TAB PO SCH (22:38)
[2021-07-12] MEDS: hydrALAZINE HCL 50 MG TAB PO SCH (22:38)
[2021-07-12] MEDS: busPIRone HCl 5 MG TAB PO SCH (22:39)
[2021-07-12] MEDS: clonazePAM 0.5 MG TAB PO SCH (22:39)
[2021-07-12] MEDS: ENOXAPARIN 40 MG/0.4 ML SYRINGE SQ SCH (22:40)
[2021-07-12] MEDS: LACTATED RINGERS 1,000 ML IV SCH (22:40)
[2021-07-12] MEDS: DICLOFENAC SODIUM GEL 100 GM TUBE TOPICAL SCH (22:53)
[2021-07-12] MEDS ORDERED: FLUoxetine HCL 20 MG CAP PO SCH (23:00)
[2021-07-12] MEDS ORDERED: LEVOFLOXACIN 500 MG TAB PO SCH (23:00)
[2021-07-13] MEDS: LACTATED RINGERS 1,000 ML IV SCH (05:34)
[2021-07-13 07:31] VITALS: BP 146/73; PULSE 71; RESP 20; TEMP 98.2
[2021-07-13] MEDS ORDERED: CYANOCOBALAMIN 500 MCG TAB PO SCH (08:00)
[2021-07-13] MEDS ORDERED: MELOXICAM 7.5 MG TAB PO SCH (08:00)
[2021-07-13] MEDS ORDERED: NON FORMULARY DRUG (Aspirin Ec 81 MG Tablet.Dr) PO SCH (08:00)
[2021-07-13] MEDS ORDERED: LORATADINE 10 MG TAB PO SCH (08:00)
[2021-07-13] MEDS: clonazePAM 0.5 MG TAB PO SCH (08:07)
[2021-07-13] MEDS: busPIRone HCl 5 MG TAB PO SCH (08:07)
[2021-07-13] MEDS: hydrALAZINE HCL 50 MG TAB PO SCH (08:08)
[2021-07-13] MEDS: metroNIDAZOLE 500 MG TAB PO SCH (08:09)
[2021-07-13] MEDS: PRIMIDONE 50 MG TAB PO SCH ×2 (08:10→12:45)
[2021-07-13] MEDS: ENOXAPARIN 40 MG/0.4 ML SYRINGE SQ SCH (08:11)
[2021-07-13] MEDS: DICLOFENAC SODIUM GEL 100 GM TUBE TOPICAL SCH ×2 (08:23→12:45)
[2021-07-13] MEDS ORDERED: ASPIRIN 325 MG TAB PO SCH (09:00)
--- NOTE | 2021-07-13 09:56 | P.CRDCN ---
History of Present Illness History of present illness: HISTORY OF PRESENT ILLNESS: This is a 80-year old female with a past medical history significant for hypertension, hyperlipidemia, osteoarthritis, and memory impairment. Patient denies any previous cardiac history. She did see Dr. Lopez in the office for a follow up in 06/2020. We have been asked to see the patient in consultation for chest pain. Patient presents to the emergency department with complaints of chest pain and diarrhea. Patient comes from an assisted living. Patient states she has been having diarrhea for 2 days. After having diarrhea she started to have left sided sharp chest pain. It is non-radiating. It is some-what exertional. It is aggravated by activity and movement. She also has been having symptoms of feeling "feverish", having chills and diaphoresis and nausea. She also endorsing some abdominal cramping. She states her chest pain was constant, did not resolve until coming to the hospital. She also has been feeling somewhat lightheaded. She denies any symptoms of syncope or near syncope, orthopnea, LE edema or PND. She endorses She denies cough, dysuria, or vomiting. She denies history of CAD, NE, Stroke, or diabetes. She is a non- smoker. DIAGNOSTICS: EKG reveals sinus rhythm with PACs without signs of acute ischemia Lexiscan stress test 05/2020 no evidence of reversible ischemia Echocardiogram 05/2020- EF 55-60%, mild aortic stenosis with a peak/pain gradient of 22 mmHg/11 mmHg., mild aortic regurgitation, mild mitral regurgitation, moderate tricuspid regurgitation. Mild to moderate pulmonary hypertension with an RVSP of 49 mmHg Chest xray negative for acute process Laboratory data: Troponin negative 3, sodium 139, potassium 3.7, BUN 20, serum creatinine 0.5, lipase negative, liver enzymes within normal limits, COVID-19 19 PCR negative, WBC 5.8, hemoglobin 12.1, platelets 216. Current home cardiac medications include REVIEW OF SYSTEMS: At the time of my exam: CONSTITUTIONAL: Endorses feeling "feverish" +chills. HEENT: Denies blurred vision, vision changes, or eye pain. Denies hemoptysis CARDIOVASCULAR:+chest pain, Denies orthopnea, PND or palpitations RESPIRATORY: No shortness of breath. GASTROINTESTINAL: +nausea +abdominal cramping. +Diarrhea Denies vomiting. HEMATOLOGIC: Denies bleeding disorders. GENITOURINARY: Denies any blood in urine. SKIN: Denies pruitis. Denies rash. PHYSICAL EXAM: VITAL SIGNS: Reviewed. GENERAL: Well-developed in no acute distress. HEENT: Head is normocephalic. Pupils are equal, round. Sclerae anicteric. Mucous membranes of the mouth are moist. Neck supple. No JVD or thyromegaly LUNGS: Respirations even and unlabored. Lungs essentially clear to auscultation bilaterally. HEART: Regular rate and rhythm. S1 and S2 heard. Systolic ejection murmur at right sternal border ABDOMEN: Soft. Nondistended. Nontender. EXTREMITIES: Normal range of motion. No clubbing or cyanosis. Peripheral pulses intact. No lower extremity edema. Patient with resting tremor of her upper extremities. NEUROLOGIC: Awake and alert. Oriented x 3 ASSESSMENT: Chest pain, atypical, no evidence of ischemia on EKG, troponins negative 3 Chills, Nausea, diaphoresis, abdominal discomfort. Hypertension Osteoarthritis History of memory impairment Anxiety Depression Bipolar disorder PLAN: -From a cardiology perspective, chest pain is atypical, acute coronary syndrome has ruled out. Symptoms appear to be more GI related. No further cardiac workup indicated at this time. Recommend follow-up with Dr. Lopez in the outpatient office in one week. Discontinue patient's home Imdur. Nurse practitioner note has been reviewed by physician. Signing provider agrees with the documented findings, assessment, and plan of care. Past Medical History Past Medical History: Cancer, GERD/Reflux, Hyperlipidemia, Memory Impairment, Osteoarthritis (OA), Skin Disorder Additional Past Medical History / Comment(s): Mild dementia, arthritis in multiple joints, urine incontinence, UTIs, cervical cancer with surgical removal, cystic acne as a youg person, neuropathy bilateral hands/feet History of Any Multi-Drug Resistant Organisms: None Reported Past Surgical History: Adenoidectomy, Joint Replacement, Orthopedic Surgery, Tonsillectomy, Tubal Ligation Additional Past Surgical History / Comment(s): 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 Past Anesthesia/Blood Transfusion Reactions: No Reported Reaction, Family History of Problems w/ Anesthesia Additional Past Anesthesia/Blood Transfusion Reaction / Comment(s): "father had problem w/spinal & was paralyzed per pt." Past Psychological History: Anxiety, Bipolar, Depression Additional Psychological History / Comment(s): [facility]. She ambulates with a walker. She states she makes her own medical decisions, but has a financial DPOA named Anuja Randall. Pt states she showers and dresses herself. She goes to the dining room for meals and staff manage her medications. Smoking Status: Never smoker Past Alcohol Use History: Rare Additional Past Alcohol Use History / Comment(s): Pt started smoking in her 50's only smoked x 1 month then quit, occ glass of wine at holidays or if someone visits Past Drug Use History: None Reported - Past Family History Father Family Medical History: Hypertension Additional Family Medical History / Comment(s): open heart surgery, paralyzed by spinal. Pt states paralyzed from shot in this hospital. Mother Family Medical History: Dementia Medications and Allergies Home Medications Medication Instructions Recorded Confirmed Type FLUoxetine HCL [PROzac] 40 mg PO HS@199912/14/14 07/12/21 History Multivitamin/Iron/Folic Acid 1 tab PO DAILY@0800 12/14/14 07/12/21 History [Centrum Complete Multivit Tab] Memantine [Namenda] 5 mg PO HS@199901/24/16 07/12/21 History Primidone [Mysoline] 50 mg PO BID@0800,1200 01/24/16 07/12/21 History Alendronate Sodium [Fosamax] 70 mg PO WE@0600 09/04/16 07/12/21 History Cyanocobalamin (Vitamin B-12) 1,000 mcg PO DAILY@0800 12/29/16 07/12/21 History [Vitamin B-12] Aspirin EC [Ecotrin Low Dose] 81 mg PO DAILY@0800 03/03/19 07/12/21 History Docusate [Colace] 100 mg PO HS PRN 06/10/20 07/12/21 History FLUoxetine HCL [PROzac] 10 mg PO HS@199906/10/20 07/12/21 History Meloxicam [Mobic] 7.5 mg PO BID@0600,1800 06/10/20 07/12/21 History Polyethylene Glycol 3350 [Miralax] 17 gm PO DAILY@0800 06/10/20 07/12/21 History clonazePAM 0.5 mg PO BID@0800,199906/10/20 07/12/21 History traZODone HCL 100 mg PO HS@199906/10/20 07/12/21 History Nitroglycerin Sl Tabs [Nitrostat] 0.4 mg SUBLINGUAL Q5M PRN #25 tab 06/11/20 07/12/21 Rx ALPRAZolam [Xanax] 0.25 mg PO BID PRN 02/04/21 07/12/21 History Diclofenac Sodium Gel [Voltaren 4 gm TOPICAL QID 02/04/21 07/12/21 History Gel] Omeprazole 20 mg PO DAILY@1500 02/04/21 07/12/21 History QUEtiapine [SEROquel] 25 mg PO HS@199902/04/21 07/12/21 History Sodium Chloride 0.65% Nasal [Deep 2 spray NASAL DAILY PRN 02/04/21 07/12/21 History Sea (Saline)] Vit C/E/Zn/Coppr/Lutein/Zeaxan 1 cap PO BID@0800,199902/04/21 07/12/21 History [Preservision Areds 2 Softgel] busPIRone HCL [Buspar] 7.5 mg PO BID@0800,199902/04/21 07/12/21 History captopriL [Capoten] 25 mg PO BID PRN 02/04/21 07/12/21 History hydrALAZINE HCL [Apresoline] 50 mg PO QID 02/04/21 07/12/21 History Loratadine 10 mg PO DAILY@0800 05/19/21 07/12/21 History Magnesium Hydroxide [Milk of 2,400 mg PO DAILY PRN 05/19/21 07/12/21 History Magnesia] Sennosides/Docusate Sodium [Senna 2 cap PO HS@199905/19/21 07/12/21 History Plus 8.6-50 mg Softgel] Cholecalciferol [Vitamin D3 (25 25 mcg PO DAILY 07/12/21 07/12/21 History Mcg = 1000 Iu)] hydrALAZINE HCL 50 mg PO QID 07/12/21 07/12/21 History Allergies Allergy/AdvReac Type Severity Reaction Status Date / Time lorazepam [From Ativan] Allergy Hallucinati Verified 05/19/21 11:49 ons pneumococcal vaccine Allergy Swelling Verified 05/19/21 11:49 Physical Exam Vitals: Vital Signs Temp Pulse Pulse Resp BP BP BP 07/13/21 07:00 98.2 F 71 20 146/73 07/13/21 01:53 98.0 F 79 18 169/68 07/13/21 01:38 82 18 07/12/21 23:08 18 07/12/21 22:19 97.6 F 82 19 154/63 07/12/21 21:17 106 H 18 177/82 07/12/21 20:55 104 H 18 129/60 07/12/21 14:14 97.1 F L 07/12/21 14:00 85 18 165/83 07/12/21 13:33 07/12/21 13:22 88 20 160/77 Pulse Ox 07/13/21 07:00 95 07/13/21 01:53 99 07/13/21 01:38 07/12/21 23:08 07/12/21 22:19 97 07/12/21 21:17 94 L 07/12/21 20:55 07/12/21 14:14 07/12/21 14:00 99 07/12/21 13:33 98 07/12/21 13:22 Intake and Output 07/12/21 07/13/21 07/13/21 22:59 06:59 14:59 Intake Total 100 Balance 100 Intake: Oral 100 Other: # Voids 1 Weight 58.967 kg Results 07/12/21 14:13 07/12/21 14:13 Cardiac Enzymes 07/12/21 07/12/21 07/12/21 Range/Units 14:13 14:13 18:36 AST 29 (14-36) U/L Troponin I <0.012 <0.012 (0.000-0.034) ng/mL 07/12/21 Range/Units 23:41 AST (14-36) U/L Troponin I <0.012 (0.000-0.034) ng/mL Coagulation 07/12/21 Range/Units 14:13 PT 11.9 (9.0-12.0) sec APTT 22.2 (22.0-30.0) sec CBC 07/12/21 Range/Units 14:13 WBC 5.8 (3.8-10.6) k/uL RBC 3.72 L (3.80-5.40) m/uL Hgb 12.1 (11.4-16.0) gm/dL Hct 34.6 (34.0-46.0) % Plt Count 216 (150-450) k/uL Comprehensive Metabolic Panel 07/12/21 Range/Units 14:13 Sodium 139 (137-145) mmol/L Potassium 3.7 (3.5-5.1) mmol/L Chloride 110 H (98-107) mmol/L Carbon Dioxide 18 L (22-30) mmol/L BUN 20 H (7-17) mg/dL Creatinine 0.56 (0.52-1.04) mg/dL Glucose 110 H (74-99) mg/dL Calcium 9.6 (8.4-10.2) mg/dL AST 29 (14-36) U/L ALT 17 (4-34) U/L Alkaline Phosphatase 73 (38-126) U/L Total Protein 7.3 (6.3-8.2) g/dL Albumin 4.3 (3.5-5.0) g/dL Current Medications Generic Name Dose Route Start Last Admin Trade Name Freq PRN Reason Stop Dose Admin Acetaminophen 650 mg 07/12/21 22:15 Acetaminophen Tab 325 Mg Tab PO Q6HR PRN Mild Pain or Fever > 100.5 Alprazolam 0.25 mg 07/12/21 22:11 Alprazolam 0.25 Mg Tab PO BID PRN Anxiety Aspirin 81 mg 07/13/21 09:00 Aspirin 325 Mg Tab PO DAILY [facility] Buspirone HCl 7.5 mg 07/12/21 22:00 07/13/21 08:07 Buspirone Hcl 5 Mg Tab PO 7.5 mg BID@ [facility] Administration Calcium Carbonate/Glycine 1,000 mg 07/12/21 22:15 Calcium Carbonate 500 Mg Chewable PO Q4HR PRN Dyspepsia Clonazepam 0.5 mg 07/12/21 22:11 07/13/21 08:07 Clonazepam 0.5 Mg Tab PO 0.5 mg BID@ [facility] Administration Cyanocobalamin 1,000 mcg 07/13/21 08:00 12/01/21 08:06 Cyanocobalamin 500 Mcg Tab PO 1,000 mcg DAILY@0800 [facility] Administration Diclofenac Sodium 4 gm 07/12/21 22:15 07/12/21 22:53 Diclofenac Sodium Gel 100 Gm Tube TOPICAL 4 gm QID [facility] Administration Protocol Enoxaparin Sodium 40 mg 07/12/21 22:30 07/12/21 22:40 Enoxaparin 40 Mg/0.4 Ml Syringe SQ 40 mg DAILY [facility] Administration Fluoxetine HCl 40 mg 07/12/21 23:00 07/12/21 22:38 Fluoxetine Hcl 20 Mg Cap PO 40 mg HS@1999 [facility] Administration Fluoxetine HCl 10 mg 07/13/21 22:11 Fluoxetine Hcl 10 Mg Cap PO HS@1999 [facility] Hydralazine HCl 50 mg 07/12/21 22:15 07/13/21 08:08 Hydralazine Hcl 50 Mg Tab PO 50 mg QID [facility] Administration Lactated Ringer's 1,000 mls @ 125 mls/hr 07/12/21 22:15 07/13/21 05:34 Lactated Ringers IV 125 mls/hr .Q8H [facility] Administration Isosorbide Mononitrate 30 mg 07/13/21 20:00 Isosorbide Mononitrate Er 30 Mg Tab.Er.24h PO HS@1999 [facility] Levofloxacin 500 mg 07/12/21 23:00 07/12/21 22:39 Levofloxacin 500 Mg Tab PO 500 mg Q24H [facility] Administration Loratadine 10 mg 07/13/21 08:00 07/13/21 08:07 Loratadine 10 Mg Tab PO 10 mg DAILY@799 [facility] Administration Magnesium Hydroxide 2,400 mg 07/12/21 22:11 Magnesium Hydroxide 2,400 Mg/10 Ml Cup PO DAILY PRN Constipation Meloxicam 7.5 mg 07/13/21 08:00 07/13/21 08:06 Meloxicam 7.5 Mg Tab PO 7.5 mg BID@ [facility] Administration Memantine 5 mg 07/13/21 20:00 Memantine 5 Mg Tab PO HS@1999 [facility] Metronidazole 500 mg 07/12/21 22:30 07/13/21 08:09 Metronidazole 500 Mg Tab PO 500 mg TID [facility] Administration Naloxone HCl 0.2 mg 07/12/21 22:15 Naloxone 0.4 Mg/Ml 1 Ml Vial IV Q2M PRN Opioid Reversal Nitroglycerin 0.4 mg 07/12/21 15:01 Nitroglycerin Sl Tabs 0.4 Mg Tab SUBLINGUAL Q5M PRN Chest Pain Nitroglycerin 0.4 mg 07/12/21 22:11 Nitroglycerin Sl Tabs 0.4 Mg Tab SUBLINGUAL Q5M PRN Angina Pantoprazole Sodium 40 mg 07/13/21 15:00 Pantoprazole 40 Mg Tablet PO DAILY@1500 [facility] Primidone 50 mg 07/13/21 08:00 Primidone 50 Mg Tab PO BID@0800,1200 [facility] Quetiapine Fumarate 25 mg 07/12/21 22:11 07/12/21 22:39 Quetiapine 25 Mg Tab PO 25 mg HS@1999 [facility] Administration Sodium Chloride 10 ml 07/12/21 21:00 07/12/21 22:41 Sodium Chloride 0.9% Flush 10 Ml Syringe IV 10 ml BID [facility] Administration Sodium Chloride 2 spray 07/12/21 22:11 Sodium Chloride 0.65% Nasal [place] 44 Ml Btl NASAL DAILY PRN Nasal Congestion Trazodone HCl 100 mg 07/12/21 22:11 07/12/21 22:38 Trazodone Hcl 100 Mg Tab PO 100 mg HS@1999 [facility] Administration Intake and Output 07/12/21 07/13/21 07/13/21 22:59 06:59 14:59 Intake Total 100 Balance 100 Intake: Oral 100 Other: # Voids 1 Weight 58.967 kg 07/12/21 14:13 07/12/21 14:13
[2021-07-13] MEDS ORDERED: hydrALAZINE HCL 50 MG TAB PO SCH (12:00)
[2021-07-13 12:07] LABS: Chol/HDL Ratio 3.22 Ratio; LDL Cholesterol,Calculated 132.8 mg/dL (0.0-131.0); VLDL Calculation 13.98 mg/dL (5.00-40.00)
[2021-07-13] MEDS ORDERED: PANTOPRAZOLE 40 MG TABLET PO SCH (15:00)
--- NOTE | 2021-07-13 19:56 | P.DS ---
Providers Date of admission: 07/12/21 15:02 Expected date of discharge: 07/13/21 Attending physician: Ezio Wynne Consults: 07/12/21 15:02 Consult Physician Urgent Consulting Provider: Jaziel Bradshaw Consult Reason/Comments: cp Do you want consulting provider notified?: Yes Primary care physician: Iraj [facility] Course: Chief Complaint: Diarrhea This is a very pleasant 80-year-old patient follows with visiting physicians Dr. Paredes. Chronic stable medical conditions include GERD, hyperlipidemia, cognitive impairment, osteoarthritis, urinary incontinence peripheral neuropathy does use a walker to get about. Bipolar. Patient lives at [facility] assisted living. Patient for 2 days started having multiple episodes of diarrhea. No blood. Abdominal discomfort. Nausea. Fever and chills. Dizzy lightheaded. Also some left chest stabbing sharp pain. No radiation. Breaking out in a sweat. Tired rundown. Appetite had been poor. Does not remember anybody else around her being sick or eating anything that was left over. Patient felt of acute gastroenteritis possibly bacterial/food poisoning. Patient was started on ciprofloxacin and Flagyl. Today: Tolerating diet. No GI symptoms. Seen by cardiology. No further workup required. Discussed with the patient. Consultation: Dr. SANJEEV Toure from cardiology Past medical history to include: GERD, hyperlipidemia, cognitive impairment, osteoarthritis, urinary incontinence, peripheral neuropathy, bipolar disorder Social history: Lives at [facility] in assisted living. Does use a walker. Makes her own medical decision but has a financial DPOA-Anuja YatrOrphazymey. Nonsmoker. Alcohol rarely. Family history: Hypertension, cardiac conditions Physical examination: VITAL SIGNS: 98.2, 71, 20, 146.73, 95% room air GENERAL: Sitting up in bed, comfortable EYES: Pupils equal. Conjunctiva normal. HEENT: External appearance of nose and ears normal, oral cavity grossly normal. NECK: JVD not raised; masses not palpable. HEART: First and second heart sounds are normal; no edema. LUNGS: Respiratory rate normal; clear to auscultation. ABDOMEN: Soft, no tenderness, no guarding rigidity, liver spleen not palpable, no masses palpable. PSYCH: Alert and oriented x3; mood and affect anxiousl. INVESTIGATIONS, reviewed in the clinical context: LDL 132 WBC 5.8 hemoglobin 12.1 platelets 216 sodium 139 potassium 3.7 BUN 20 creatinine 0.56 Troponin I less than 0.0122 Coronavirus [PCR]: Not detected EKG tracing personally reviewed by me-normal sinus rhythm. Nonspecific ST-T wa ve changes. Chest x-ray film personally reviewed by me-no infiltrates Assessment and plan: -Acute gastroenteritis could be bacterial/food poisoning Patient presents with 2 days of persistent diarrhea watery with no blood. Abdominal discomfort. Fever or chills. Nausea. Complete 2 more days of Levaquin and Flagyl.. -Clinical dehydration IV fluids -GERD Omeprazole 20 mg daily -Hyperlipidemia Diet-controlled -Essential hypertension Hydralazine 50 mg 4 times a day -Mild cognitive impairment Namenda 5 mg daily at bedtime -Primary osteoarthritis Mobic 7.5 mg twice a day. Voltaren gel 4 times a day -Chronic urinary stress incontinence Depends - peripheral neuropathy both in the hand and feet -Bipolar disorder BuSpar 7.5 mg by mouth twice a day, Klonopin 0.5 mg twice a day Prozac 50 mg daily at bedtime. Seroquel 25 mg daily at bedtime trazodone 100 mg daily at bedtime -Chronic gait dysfunction uses a walker Fall precaution Disposition: Home Plan - Discharge Summary Discharge Rx Participant: Yes New Discharge Prescriptions: New Levofloxacin [Levaquin] 500 mg PO Q24H #2 tab metroNIDAZOLE [Flagyl] 500 mg PO TID #6 tab Continue FLUoxetine HCL [PROzac] 40 mg PO HS@2000 Multivitamin/Iron/Folic Acid [Centrum Complete Multivit Tab] 1 tab PO DAILY@0800 Primidone [Mysoline] 50 mg PO BID@0800,1200 Memantine [Namenda] 5 mg PO HS@2000 Alendronate Sodium [Fosamax] 70 mg PO WE@0600 Cyanocobalamin (Vitamin B-12) [Vitamin B-12] 1,000 mcg PO DAILY@0800 Aspirin EC [Ecotrin Low Dose] 81 mg PO DAILY@0800 clonazePAM 0.5 mg PO BID@0800,2000 FLUoxetine HCL [PROzac] 10 mg PO HS@2000 Polyethylene Glycol 3350 [Miralax] 17 gm PO DAILY@0800 traZODone HCL 100 mg PO HS@2000 Meloxicam [Mobic] 7.5 mg PO BID@0600,1800 Nitroglycerin Sl Tabs [Nitrostat] 0.4 mg SUBLINGUAL Q5M PRN #25 tab PRN Reason: Angina busPIRone HCL [Buspar] 7.5 mg PO BID@799,1999 Omeprazole 20 mg PO DAILY@1500 QUEtiapine [SEROquel] 25 mg PO HS@1999 Sodium Chloride 0.65% Nasal [Deep Sea (Saline)] 2 spray NASAL DAILY PRN PRN Reason: Nasal Congestion Magnesium Hydroxide [Milk of Magnesia] 2,400 mg PO DAILY PRN PRN Reason: Constipation ALPRAZolam [Xanax] 0.25 mg PO BID PRN PRN Reason: Anxiety captopriL [Capoten] 25 mg PO BID PRN PRN Reason: Blood Pressure Diclofenac Sodium Gel [Voltaren Gel] 4 gm TOPICAL QID hydrALAZINE HCL [Apresoline] 50 mg PO QID Vit C/E/Zn/Coppr/Lutein/Zeaxan [Preservision Areds 2 Softgel] 1 cap PO BID@ 799,1999 Loratadine 10 mg PO DAILY@08 Sennosides/Docusate Sodium [Senna Plus 8.6-50 mg Softgel] 2 cap PO HS@1999 Cholecalciferol [Vitamin D3 (25 Mcg = 1000 Iu)] 25 mcg PO DAILY hydrALAZINE HCL 50 mg PO QID Discontinued Docusate [Colace] 100 mg PO HS PRN PRN Reason: Constipation Isosorbide Mononitrate ER [Imdur] 30 mg PO HS@1999 Discharge Medication List FLUoxetine HCL [PROzac] 40 mg PO HS@199912/14/14 [History] Multivitamin/Iron/Folic Acid [Centrum Complete Multivit Tab] 1 tab PO DAILY@79912/14/14 [History] Memantine [Namenda] 5 mg PO HS@199901/24/16 [History] Primidone [Mysoline] 50 mg PO BID@0800,1200 01/24/16 [History] Alendronate Sodium [Fosamax] 70 mg PO WE@59909/04/16 [History] Cyanocobalamin (Vitamin B-12) [Vitamin B-12] 1,000 mcg PO DAILY@0800 12/29/16 [History] Aspirin EC [Ecotrin Low Dose] 81 mg PO DAILY@0800 03/03/19 [History] FLUoxetine HCL [PROzac] 10 mg PO HS@199906/10/20 [History] Meloxicam [Mobic] 7.5 mg PO BID@0600,1800 06/10/20 [History] Polyethylene Glycol 3350 [Miralax] 17 gm PO DAILY@0800 06/10/20 [History] clonazePAM 0.5 mg PO BID@0800,199906/10/20 [History] traZODone HCL 100 mg PO HS@199906/10/20 [History] Nitroglycerin Sl Tabs [Nitrostat] 0.4 mg SUBLINGUAL Q5M PRN #25 tab 06/11/20 [Rx] ALPRAZolam [Xanax] 0.25 mg PO BID PRN 02/04/21 [History] Diclofenac Sodium Gel [Voltaren Gel] 4 gm TOPICAL QID 02/04/21 [History] Omeprazole 20 mg PO DAILY@1500 02/04/21 [History] QUEtiapine [SEROquel] 25 mg PO HS@199902/04/21 [History] Sodium Chloride 0.65% Nasal [Deep Sea (Saline)] 2 spray NASAL DAILY PRN 02/04/21 [History] Vit C/E/Zn/Coppr/Lutein/Zeaxan [Preservision Areds 2 Softgel] 1 cap PO BID@08,199902/04/21 [History] busPIRone HCL [Buspar] 7.5 mg PO BID@0800,199902/04/21 [History] captopriL [Capoten] 25 mg PO BID PRN 02/04/21 [History] hydrALAZINE HCL [Apresoline] 50 mg PO QID 02/04/21 [History] Loratadine 10 mg PO DAILY@0800 05/19/21 [History] Magnesium Hydroxide [Milk of Magnesia] 2,400 mg PO DAILY PRN 05/19/21 [History] Sennosides/Docusate Sodium [Senna Plus 8.6-50 mg Softgel] 2 cap PO HS@199905/19/21 [History] Cholecalciferol [Vitamin D3 (25 Mcg = 1000 Iu)] 25 mcg PO DAILY 07/12/21 [History] hydrALAZINE HCL 50 mg PO QID 07/12/21 [History] Levofloxacin [Levaquin] 500 mg PO Q24H #2 tab 07/13/21 [Rx] metroNIDAZOLE [Flagyl] 500 mg PO TID #6 tab 07/13/21 [Rx] Follow up Appointment(s)/Referral(s): Iraj Paredes MD [Primary Care Provider] - 1-2 days Ana Lopez MD [STAFF PHYSICIAN] - 07/25/21 4:00 pm (Appointment made at [facility] by [place] ) Patient Instructions/Handouts: Chest Pain (DC) Activity/Diet/Wound Care/Special Instructions: soft bland diet Discharge Disposition: HOME SELF-CARE
[2021-07-13] MEDS ORDERED: ISOSORBIDE MONONITRATE ER 30 MG TAB.ER.24H PO SCH (20:00)
[2021-07-13] MEDS ORDERED: MEMANTINE 5 MG TAB PO SCH (20:00)
[2021-07-13] MEDS ORDERED: FLUoxetine HCL 10 MG CAP PO SCH (22:11)
[2021-07-14] MEDS ORDERED: ASPIRIN 81 MG PO SCH (09:00)
== END 2021-07-13 13:49 | disposition home or self-care (01) ==
LOC: EC 13:19 → 1SOBS 15:02 → 6NMEDSUR 18:00
PROVIDERS: ADMIT Hospitalist; ATTEND Hospitalist
DX: K52.9 Noninfective gastroenteritis and colitis, unspecified (principal); E86.0 Dehydration; K21.9 Gastro-esophageal reflux disease without esophagitis; E78.5 Hyperlipidemia, unspecified; I10 Essential (primary) hypertension; F03.90 Unspecified dementia, unspecified severity, without behavioral disturbance, psychotic disturbance, mood disturbance, and anxiety; Z20.822 Contact with and (suspected) exposure to COVID-19; M19.91 Primary osteoarthritis, unspecified site; R07.89 Other chest pain; R41.89 Other symptoms and signs involving cognitive functions and awareness; N39.3 Stress incontinence (female) (male); G62.9 Polyneuropathy, unspecified; F31.9 Bipolar disorder, unspecified; F41.9 Anxiety disorder, unspecified; R26.9 Unspecified abnormalities of gait and mobility; L98.9 Disorder of the skin and subcutaneous tissue, unspecified; I08.1 Rheumatic disorders of both mitral and tricuspid valves; I27.20 Pulmonary hypertension, unspecified; Z79.1 Long term (current) use of non-steroidal anti-inflammatories (NSAID); Z79.82 Long term (current) use of aspirin; Z79.83 Long term (current) use of bisphosphonates; Z79.899 Other long term (current) drug therapy; Z88.7 Allergy status to serum and vaccine; Z88.8 Allergy status to other drugs, medicaments and biological substances; Z85.41 Personal history of malignant neoplasm of cervix uteri; Z96.643 Presence of artificial hip joint, bilateral; Z82.49 Family history of ischemic heart disease and other diseases of the circulatory system
CPT/HCPCS: 99285; 96372 ×2; 96374; 96375; 36415; 93005; 80061; 80053; 82150; 83690; 84484; 85025; 85610; 85730; 87635; 71046; 74018; G0378 ×2; J2405; J1650 ×2

== ENCOUNTER 2021-07-22 22:42 | Emergency (ER) | payer MEDICARE ==
[2021-07-22 22:53] VITALS: PULSE 71; RESP 16; TEMP 97.8
[2021-07-23] MEDS ORDERED: ONDANSETRON 4 MG/2 ML VIAL IVP STA (00:02)
[2021-07-23 00:32] LABS: Basophils % (A) 0 %; Eosinophils # (A) 0.1 k/uL (0-0.7); Eosinophils % (A) 1 %; HCT 35.1 % (34.0-46.0); HGB 11.6 gm/dL (11.4-16.0); Lymphocytes # (A) 0.6 k/uL (1.0-4.8); Lymphocytes % (A) 9 %; MCH 33.4 pg (25.0-35.0); MCHC 33.2 g/dL (31.0-37.0); Mean Platelet Volume 9.4; Monocytes # (A) 0.5 k/uL (0-1.0); Monocytes % (A) 8 %; Neutrophils # (A) 5.5 k/uL (1.3-7.7); Neutrophils % (A) 81 %; Platelet Count 187 k/uL (150-450); RBC 3.49 m/uL (3.80-5.40); RDW 13.6 % (11.5-15.5); WBC 6.8 k/uL (3.8-10.6)
[2021-07-23 00:41] LABS: MCV 100.5 fL (80.0-100.0)
[2021-07-23 00:44] LABS: Albumin 3.4 g/dL (3.5-5.0); Calcium 8.9 mg/dL (8.4-10.2); Potassium 3.5 mmol/L (3.5-5.1); Total Bilirubin 0.3 mg/dL (0.2-1.3); Total Protein 6.2 g/dL (6.3-8.2)
--- NOTE | 2021-07-23 00:51 | XR ---
EXAMINATION TYPE: XR KUB DATE OF EXAM: 07/23/2021 COMPARISON: NONE HISTORY: Abdominal pain TECHNIQUE: 2 views FINDINGS: Bowel gas pattern is normal. There is no sign of intestinal obstruction or pneumoperitoneum . Fecal pattern is normal. Lung bases are clear. Bony structures are intact. There are no pathologic calcifications over the kidneys. IMPRESSION: Nonacute abdomen.
[2021-07-23 00:56] LABS: Appearance,Urine Clear (Clear); Bacteria,Urine Rare /hpf; Bilirubin,Urine Negative (Negative); Blood,Urine Negative (Negative); Color,Urine Yellow; Glucose,Urine (UA) Negative (Negative); Hyaline Casts,Urine 8 /lpf (0-2); Ketones,Urine Negative (Negative); Leukocyte Esterase,Urine Moderate (Negative); Mucus,Urine Occasional /hpf; Nitrite,Urine Negative (Negative); Protein,Urine Trace (Negative); RBC,Urine 2 /hpf (0-5); Squamous Epithelial Cell,Urine 1 /hpf (0-4); Urobilinogen,Urine <2.0 mg/dL (<2.0); WBC,Urine 9 /hpf (0-5)
[2021-07-23] MEDS ORDERED: SODIUM CHLORIDE 0.9% 500 ML 500 ML IV STA (01:49)
--- NOTE | 2021-07-23 01:50 | ED ---
General Adult HPI - General Chief complaint: Recheck/Abnormal Lab/Rx Stated complaint: Nausea/Vomiting Time Seen by Provider: 07/22/21 23:56 Source: patient, EMS Mode of arrival: EMS Limitations: no limitations - History of Present Illness Initial comments: This patient is 80-year-old woman presenting with complaint of intermittent, recurring vomiting going back up to 2 weeks. Patient states they're days she does not tolerate oral intake, days when she is able tolerate a little. The patient denying consistent abdominal pain. There is some occasional cramping or burning. Onset/Timin -: week(s) Severity scale (1-10): 0 Improves with: none Worsens with: none Associated Symptoms: nausea/vomiting Treatments Prior to Arrival: none - Related Data Home Medications Medication Instructions Recorded Confirmed FLUoxetine HCL [PROzac] 40 mg PO HS@199912/14/14 07/12/21 Multivitamin/Iron/Folic Acid 1 tab PO DAILY@0800 12/14/14 07/12/21 [Centrum Complete Multivit Tab] Memantine [Namenda] 5 mg PO HS@199901/24/16 07/12/21 Primidone [Mysoline] 50 mg PO BID@0800,1200 01/24/16 07/12/21 Alendronate Sodium [Fosamax] 70 mg PO WE@59909/04/16 07/12/21 Cyanocobalamin (Vitamin B-12) 1,000 mcg PO DAILY@0800 12/29/16 07/12/21 [Vitamin B-12] Aspirin EC [Ecotrin Low Dose] 81 mg PO DAILY@0800 03/03/19 07/12/21 FLUoxetine HCL [PROzac] 10 mg PO HS@199906/10/20 07/12/21 Meloxicam [Mobic] 7.5 mg PO BID@0600,1800 06/10/20 07/12/21 Polyethylene Glycol 3350 [Miralax] 17 gm PO DAILY@0800 06/10/20 07/12/21 clonazePAM 0.5 mg PO BID@0800,199906/10/20 07/12/21 traZODone HCL 100 mg PO HS@199906/10/20 07/12/21 ALPRAZolam [Xanax] 0.25 mg PO BID PRN 02/04/21 07/12/21 Diclofenac Sodium Gel [Voltaren 4 gm TOPICAL QID 02/04/21 07/12/21 Gel] Omeprazole 20 mg PO DAILY@1500 02/04/21 07/12/21 QUEtiapine [SEROquel] 25 mg PO HS@199902/04/21 07/12/21 Sodium Chloride 0.65% Nasal [Deep 2 spray NASAL DAILY PRN 02/04/21 07/12/21 Sea (Saline)] Vit C/E/Zn/Coppr/Lutein/Zeaxan 1 cap PO BID@0800,199902/04/21 07/12/21 [Preservision Areds 2 Softgel] busPIRone HCL [Buspar] 7.5 mg PO BID@0800,199902/04/21 07/12/21 captopriL [Capoten] 25 mg PO BID PRN 02/04/21 07/12/21 hydrALAZINE HCL [Apresoline] 50 mg PO QID 02/04/21 07/12/21 Loratadine 10 mg PO DAILY@0800 05/19/21 07/12/21 Magnesium Hydroxide [Milk of 2,400 mg PO DAILY PRN 05/19/21 07/12/21 Magnesia] Sennosides/Docusate Sodium [Senna 2 cap PO HS@199905/19/21 07/12/21 Plus 8.6-50 mg Softgel] Cholecalciferol [Vitamin D3 (25 25 mcg PO DAILY 07/12/21 07/12/21 Mcg = 1000 Iu)] hydrALAZINE HCL 50 mg PO QID 07/12/21 07/12/21 Previous Rx's Medication Instructions Recorded Nitroglycerin Sl Tabs [Nitrostat] 0.4 mg SUBLINGUAL Q5M PRN #25 tab 06/11/20 Levofloxacin [Levaquin] 500 mg PO Q24H #2 tab 07/13/21 metroNIDAZOLE [Flagyl] 500 mg PO TID #6 tab 07/13/21 Allergies Allergy/AdvReac Type Severity Reaction Status Date / Time lorazepam [From Ativan] Allergy Hallucinati Verified 05/19/21 11:49 ons pneumococcal vaccine Allergy Swelling Verified 05/19/21 11:49 Review of Systems ROS Statement: Those systems with pertinent positive or pertinent negative responses have been documented in the HPI. ROS Other: All systems not noted in ROS Statement are negative. Constitutional: Reports: weakness. Denies: fever, chills Respiratory: Denies: cough, dyspnea Cardiovascular: Denies: chest pain, palpitations, edema Gastrointestinal: Reports: as per HPI, nausea, vomiting. Denies: diarrhea, constipation Genitourinary: Denies: dysuria, hematuria Musculoskeletal: Denies: back pain Skin: Denies: rash Neurological: Denies: headache, weakness Past Medical History Past Medical History: Cancer, GERD/Reflux, Hyperlipidemia, Memory Impairment, Osteoarthritis (OA), Skin Disorder Additional Past Medical History / Comment(s): Mild dementia, arthritis in multiple joints, urine incontinence, UTIs, cervical cancer with surgical removal, cystic acne as a youg person, neuropathy bilateral hands/feet History of Any Multi-Drug Resistant Organisms: None Reported Past Surgical History: Adenoidectomy, Joint Replacement, Orthopedic Surgery, Tonsillectomy, Tubal Ligation Additional Past Surgical History / Comment(s): 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 Past Anesthesia/Blood Transfusion Reactions: No Reported Reaction, Family History of Problems w/ Anesthesia Additional Past Anesthesia/Blood Transfusion Reaction / Comment(s): "father had problem w/spinal & was paralyzed per pt." Past Psychological History: Anxiety, Bipolar, Depression Smoking Status: Never smoker Past Alcohol Use History: Rare Past Drug Use History: None Reported - Past Family History Father Family Medical History: Hypertension Additional Family Medical History / Comment(s): open heart surgery, paralyzed by spinal. Pt states paralyzed from shot in this hospital. Mother Family Medical History: Dementia General Exam Limitations: no limitations General appearance: alert, in no apparent distress Head exam: Present: atraumatic, normocephalic Eye exam: Present: normal appearance. Absent: scleral icterus, conjunctival injection ENT exam: Present: normal oropharynx Neck exam: Present: normal inspection Respiratory exam: Present: normal lung sounds bilaterally. Absent: respiratory distress, wheezes, rales, rhonchi, stridor Cardiovascular Exam: Present: regular rate, normal rhythm, normal heart sounds. Absent: systolic murmur, diastolic murmur, rubs, gallop GI/Abdominal exam: Present: soft. Absent: distended, tenderness, guarding, rebound, rigid, mass, hernia Extremities exam: Present: normal inspection, normal capillary refill. Absent: pedal edema, calf tenderness Back exam: Present: normal inspection. Absent: CVA tenderness (R), CVA tenderness (L) Neurological exam: Present: alert Skin exam: Present: warm, dry, intact, normal color. Absent: rash Course Vital Signs 07/22/21 07/23/21 22:50 02:06 Temperature 97.8 F Pulse Rate 71 71 Respiratory 16 16 Rate Blood Pressure 119/54 137/60 O2 Sat by Pulse 97 100 Oximetry Medical Decision Making - Medical Decision Making Patient 80-year-old woman with recurring intermittent vomiting. Patient is feeling better here following medications and fluids and would like to go home. Discussed return parameters and appropriate further care and follow-up - Lab Data Result diagrams: 07/23/21 00:07 07/23/21 00:07 Lab Results 07/23/21 07/23/21 07/23/21 Range/Units 00:07 00:07 00:07 WBC 6.8 (3.8-10.6) k/uL RBC 3.49 L (3.80-5.40) m/uL Hgb 11.6 (11.4-16.0) gm/dL Hct 35.1 (34.0-46.0) % MCV 100.5 H D (80.0-100.0) fL MCH 33.4 (25.0-35.0) pg MCHC 33.2 (31.0-37.0) g/dL RDW 13.6 (11.5-15.5) % Plt Count 187 (150-450) k/uL MPV 9.4 Neutrophils % 81 % Lymphocytes % 9 % Monocytes % 8 % Eosinophils % 1 % Basophils % 0 % Neutrophils # 5.5 (1.3-7.7) k/uL Lymphocytes # 0.6 L (1.0-4.8) k/uL Monocytes # 0.5 (0-1.0) k/uL Eosinophils # 0.1 (0-0.7) k/uL Basophils # 0.0 (0-0.2) k/uL Sodium 135 L (137-145) mmol/L Potassium 3.5 (3.5-5.1) mmol/L Chloride 103 (98-107) mmol/L Carbon Dioxide 22 (22-30) mmol/L Anion Gap 10 mmol/L BUN 24 H (7-17) mg/dL Creatinine 0.83 (0.52-1.04) mg/dL Est GFR (CKD-EPI)AfAm 79 (>60 ml/min/1.73 sqM) Est GFR (CKD-EPI)NonAf 68 (>60 ml/min/1.73 sqM) Glucose 138 H (74-99) mg/dL Plasma Lactic Acid Dharmesh 1.4 (0.7-2.0) mmol/L Calcium 8.9 (8.4-10.2) mg/dL Total Bilirubin 0.3 (0.2-1.3) mg/dL AST 21 (14-36) U/L ALT 12 (4-34) U/L Alkaline Phosphatase 54 (38-126) U/L Troponin I (0.000-0.034) ng/mL Total Protein 6.2 L (6.3-8.2) g/dL Albumin 3.4 L (3.5-5.0) g/dL Amylase 69 (30-110) U/L Lipase 169 (23-300) U/L Urine Color Urine Appearance (Clear) Urine pH (5.0-8.0) Ur Specific [place] (1.001-1.035) Urine Protein (Negative) Urine Glucose (UA) (Negative) Urine Ketones (Negative) Urine Blood (Negative) Urine Nitrite (Negative) Urine Bilirubin (Negative) Urine Urobilinogen (<2.0) mg/dL Ur Leukocyte Esterase (Negative) Urine RBC (0-5) /hpf Urine WBC (0-5) /hpf Ur Squamous Epith Cells (0-4) /hpf Urine Bacteria (None) /hpf Hyaline Casts (0-2) /lpf Urine Mucus (None) /hpf 07/23/21 07/23/21 Range/Units 00:07 00:33 WBC (3.8-10.6) k/uL RBC (3.80-5.40) m/uL Hgb (11.4-16.0) gm/dL Hct (34.0-46.0) % MCV (80.0-100.0) fL MCH (25.0-35.0) pg MCHC (31.0-37.0) g/dL RDW (11.5-15.5) % Plt Count (150-450) k/uL MPV Neutrophils % % Lymphocytes % % Monocytes % % Eosinophils % % Basophils % % Neutrophils # (1.3-7.7) k/uL Lymphocytes # (1.0-4.8) k/uL Monocytes # (0-1.0) k/uL Eosinophils # (0-0.7) k/uL Basophils # (0-0.2) k/uL Sodium (137-145) mmol/L Potassium (3.5-5.1) mmol/L Chloride (98-107) mmol/L Carbon Dioxide (22-30) mmol/L Anion Gap mmol/L BUN (7-17) mg/dL Creatinine (0.52-1.04) mg/dL Est GFR (CKD-EPI)AfAm (>60 ml/min/1.73 sqM) Est GFR (CKD-EPI)NonAf (>60 ml/min/1.73 sqM) Glucose (74-99) mg/dL Plasma Lactic Acid Dharmesh (0.7-2.0) mmol/L Calcium (8.4-10.2) mg/dL Total Bilirubin (0.2-1.3) mg/dL AST (14-36) U/L ALT (4-34) U/L Alkaline Phosphatase (38-126) U/L Troponin I <0.012 (0.000-0.034) ng/mL Total Protein (6.3-8.2) g/dL Albumin (3.5-5.0) g/dL Amylase (30-110) U/L Lipase (23-300) U/L Urine Color Yellow Urine Appearance Clear (Clear) Urine pH 6.0 (5.0-8.0) Ur Specific [place] 1.020 (1.001-1.035) Urine Protein Trace H (Negative) Urine Glucose (UA) Negative (Negative) Urine Ketones Negative (Negative) Urine Blood Negative (Negative) Urine Nitrite Negative (Negative) Urine Bilirubin Negative (Negative) Urine Urobilinogen <2.0 (<2.0) mg/dL Ur Leukocyte Esterase Moderate H (Negative) Urine RBC 2 (0-5) /hpf Urine WBC 9 H (0-5) /hpf Ur Squamous Epith Cells 1 (0-4) /hpf Urine Bacteria Rare H (None) /hpf Hyaline Casts 8 H (0-2) /lpf Urine Mucus Occasional H (None) /hpf Disposition Clinical Impression: Dehydration Disposition: HOME SELF-CARE Condition: Good Instructions (If sedation given, give patient instructions): Dehydration (ED) Is patient prescribed a controlled substance at d/c from ED?: No Referrals: Iraj Paredes MD [Primary Care Provider] - 1-2 days
[2021-07-23 02:07] VITALS: BP 137/60
== END 2021-07-23 04:33 | disposition home or self-care (01) ==
LOC: EC 22:42
DX: E86.0 Dehydration (principal); R11.2 Nausea with vomiting, unspecified; E78.5 Hyperlipidemia, unspecified; K21.9 Gastro-esophageal reflux disease without esophagitis; Z88.7 Allergy status to serum and vaccine; Z88.8 Allergy status to other drugs, medicaments and biological substances; Z79.899 Other long term (current) drug therapy; Z79.82 Long term (current) use of aspirin
CPT/HCPCS: 36415; 74018; 80053; 81001; 82150; 83605; 83690; 84484; 85025; 99284

== ENCOUNTER 2022-02-21 02:32 | Emergency (ER) | payer MEDICARE ==
[2022-02-21 02:46] VITALS: TEMP 98.2
--- NOTE | 2022-02-21 04:23 | XR ---
EXAM: XR Right Knee, 3 Views CLINICAL HISTORY: ITS.REASON XR Reason: Pain TECHNIQUE: Three views of the right knee. COMPARISON: No relevant prior studies available. FINDINGS: Bones/joints: Right total knee arthroplasty hardware in place.. No acute fracture. No dislocation. Large corticated ossified body in the joint space. Soft tissues: Unremarkable. IMPRESSION: 1. No acute fracture or traumatic malalignment to the right knee. 2. Right-sided total knee arthroplasty hardware in place.
[2022-02-21] MEDS ORDERED: MORPHINE SULFATE 4 MG/ML SYRINGE IM STA (06:00)
[2022-02-21 06:22] VITALS: BP 166/70; PULSE 56; RESP 16
--- NOTE | 2022-02-21 07:09 | ED ---
Fall HPI - General Chief Complaint: Fall Stated Complaint: Fall, knee injury Time Seen by Provider: 02/21/22 05:53 Source: EMS Mode of arrival: EMS - History of Present Illness MD Complaint: fall -: hour(s) Fall From: standing When Fall Occurred: 1-[address] Fall Occurred: home Loss of Consciousness: none Prolonged Down Time?: no Symptoms Prior to Fall: none Location - Extremities: Right: Knee Severity: moderate Quality: aching Context: tripped/slipped - Related Data Home Medications Medication Instructions Recorded Confirmed FLUoxetine HCL [PROzac] 40 mg PO HS@199912/14/14 07/12/21 Multivitamin/Iron/Folic Acid 1 tab PO DAILY@0800 12/14/14 07/12/21 [Centrum Complete Multivit Tab] Memantine [Namenda] 5 mg PO HS@199901/24/16 07/12/21 Primidone [Mysoline] 50 mg PO BID@0800,1200 01/24/16 07/12/21 Alendronate Sodium [Fosamax] 70 mg PO WE@59909/04/16 07/12/21 Cyanocobalamin (Vitamin B-12) 1,000 mcg PO DAILY@0800 12/29/16 07/12/21 [Vitamin B-12] Aspirin EC [Ecotrin Low Dose] 81 mg PO DAILY@0800 03/03/19 07/12/21 FLUoxetine HCL [PROzac] 10 mg PO HS@199906/10/20 07/12/21 Meloxicam [Mobic] 7.5 mg PO BID@0600,1800 06/10/20 07/12/21 clonazePAM 0.5 mg PO BID@0800,199906/10/20 07/12/21 polyethylene glycoL 3350 [Miralax] 17 gm PO DAILY@0800 06/10/20 07/12/21 traZODone HCL 100 mg PO HS@199906/10/20 07/12/21 ALPRAZolam [Xanax] 0.25 mg PO BID PRN 02/04/21 07/12/21 Diclofenac Sodium Gel [Voltaren 4 gm TOPICAL QID 02/04/21 07/12/21 Gel] Omeprazole 20 mg PO DAILY@1500 02/04/21 07/12/21 QUEtiapine [SEROquel] 25 mg PO HS@199902/04/21 07/12/21 Sodium Chloride 0.65% Nasal [Deep 2 spray NASAL DAILY PRN 02/04/21 07/12/21 Sea (Saline)] Vit C/E/Zn/Coppr/Lutein/Zeaxan 1 cap PO BID@0800,199902/04/21 07/12/21 [Preservision Areds 2 Softgel] busPIRone HCL [Buspar] 7.5 mg PO BID@0800,199902/04/21 07/12/21 captopriL [Capoten] 25 mg PO BID PRN 02/04/21 07/12/21 hydrALAZINE HCL [Apresoline] 50 mg PO QID 02/04/21 07/12/21 Loratadine 10 mg PO DAILY@0800 05/19/21 07/12/21 Magnesium Hydroxide [Milk of 2,400 mg PO DAILY PRN 05/19/21 07/12/21 Magnesia] Sennosides/Docusate Sodium [Senna 2 cap PO HS@199905/19/21 07/12/21 Plus 8.6-50 mg Softgel] Cholecalciferol [Vitamin D3 (25 25 mcg PO DAILY 07/12/21 07/12/21 Mcg = 1000 Iu)] hydrALAZINE HCL 50 mg PO QID 07/12/21 07/12/21 Previous Rx's Medication Instructions Recorded Nitroglycerin Sl Tabs [Nitrostat] 0.4 mg SUBLINGUAL Q5M PRN #25 tab 06/11/20 Levofloxacin [Levaquin] 500 mg PO Q24H #2 tab 07/13/21 metroNIDAZOLE [Flagyl] 500 mg PO TID #6 tab 07/13/21 Allergies Allergy/AdvReac Type Severity Reaction Status Date / Time lorazepam [From Ativan] Allergy Hallucinati Verified 02/21/22 02:46 ons pneumococcal vaccine Allergy Swelling Verified 02/21/22 02:46 Review of Systems ROS Statement: Those systems with pertinent positive or pertinent negative responses have been documented in the HPI. ROS Other: All systems not noted in ROS Statement are negative. Constitutional: Denies: fever, weakness Musculoskeletal: Reports: as per HPI, arthralgia. Denies: back pain Neurological: Denies: headache, weakness, numbness Past Medical History Past Medical History: Cancer, GERD/Reflux, Hyperlipidemia, Memory Impairment, Osteoarthritis (OA), Skin Disorder Additional Past Medical History / Comment(s): Mild dementia, arthritis in multiple joints, urine incontinence, UTIs, cervical cancer with surgical removal, cystic acne as a youg person, neuropathy bilateral hands/feet History of Any Multi-Drug Resistant Organisms: None Reported Past Surgical History: Adenoidectomy, Joint Replacement, Orthopedic Surgery, Tonsillectomy, Tubal Ligation Additional Past Surgical History / Comment(s): 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 Past Anesthesia/Blood Transfusion Reactions: No Reported Reaction, Family History of Problems w/ Anesthesia Additional Past Anesthesia/Blood Transfusion Reaction / Comment(s): "father had problem w/spinal & was paralyzed per pt." Past Psychological History: Anxiety, Bipolar, Depression Smoking Status: Never smoker Past Alcohol Use History: Rare Past Drug Use History: None Reported - Past Family History Father Family Medical History: Hypertension Additional Family Medical History / Comment(s): open heart surgery, paralyzed by spinal. Pt states paralyzed from shot in this hospital. Mother Family Medical History: Dementia General Exam Limitations: no limitations General appearance: alert, in no apparent distress Head exam: Present: atraumatic, normocephalic Neck exam: Present: full ROM. Absent: tenderness Respiratory exam: Absent: chest wall tenderness GI/Abdominal exam: Present: soft. Absent: tenderness Extremities exam: Present: full ROM, tenderness, normal capillary refill, joint swelling Back exam: Present: normal inspection. Absent: vertebral tenderness Neurological exam: Present: alert. Absent: motor sensory deficit Skin exam: Present: warm, dry, intact, normal color. Absent: rash Course Vital Signs 02/21/22 02/21/22 02:43 06:22 Temperature 98.2 F Pulse Rate 53 L 56 L Respiratory 18 16 Rate Blood Pressure 104/56 166/70 O2 Sat by Pulse 98 100 Oximetry Disposition Clinical Impression: Fall, Knee sprain Disposition: HOME SELF-CARE Condition: Good Instructions (If sedation given, give patient instructions): Knee Sprain (DC), Fall Prevention for Older Adults (ED) Is patient prescribed a controlled substance at d/c from ED?: No Referrals: Iraj Paredes MD [Primary Care Provider] - 1-2 days Melchor Hayward MD [STAFF PHYSICIAN] - 1-2 days
== END 2022-02-21 07:46 | disposition home or self-care (01) ==
LOC: EC 02:32
DX: S83.91XA Sprain of unspecified site of right knee, initial encounter (principal); K21.9 Gastro-esophageal reflux disease without esophagitis; E78.5 Hyperlipidemia, unspecified; M19.90 Unspecified osteoarthritis, unspecified site; F41.9 Anxiety disorder, unspecified; F31.9 Bipolar disorder, unspecified; Z88.8 Allergy status to other drugs, medicaments and biological substances; Z88.7 Allergy status to serum and vaccine; Z79.82 Long term (current) use of aspirin; Z79.899 Other long term (current) drug therapy; W01.0XXA Fall on same level from slipping, tripping and stumbling without subsequent striking against object, initial encounter
CPT/HCPCS: 73562; 99283; 96372; L1830; J2270

== ENCOUNTER → 2023-05-31 | Outpatient (CLI) | payer MEDICARE ==
--- NOTE | 2023-06-04 01:39 | MM ---
Reason for Exam: Screening (asymptomatic). Last mammogram was performed 7 year(s) and 5 month(s) ago. Patient History: Menarche at age 13. First Full-Term at age 21. Postmenopausal. Endometrial cancer, age 21. Risk Values: Lorraine 5 year model risk: 1.3%. NCI Lifetime model risk: 2.0%. Prior Study Comparison: 09/29/2011 Bilateral Screening Mammogram, [facility]. 09/26/2013 Bilateral Screening Mammogram, [facility]. 01/06/2016 Bilateral Screening Mammogram, [facility]. Tissue Density: There are scattered fibroglandular densities. Findings: Analyzed By CAD. Benign bilateral vascular and oil cyst calcifications. There is no suspicious group of microcalcifications or new suspicious mass in either breast. Overall Assessment: Benign, BI-RAD 2 Management: Screening Mammogram of both breasts in 1 year. . Patient should continue monthly self-breast exams. A clinical breast exam by your physician is recommended on an annual basis. This exam should not preclude additional follow-up of suspicious palpable abnormalities. Note on Lorraine scores and lifetime risk: 1. A Lorraine score greater than 3% is considered moderate risk. If this is the case, consider specialist referral to assess eligibility for a risk reducing agent. 2. If overall lifetime risk for the development of breast cancer is 20% or higher, the patient may qualify for future screening with alternating mammogram and breast MRI. Electronically signed and approved by: Anuradha Little M.D. Radiologist
== END | disposition home or self-care (01) ==
LOC: RADMAMWWP 13:38
PROVIDERS: ATTEND Family Medicine
DX: Z12.31 Encounter for screening mammogram for malignant neoplasm of breast (principal); Z78.0 Asymptomatic menopausal state
CPT/HCPCS: 77063; 77067